=== PATIENT | female | born 1945 | race Caucasian/White ===

== ENCOUNTER 2017-10-09 01:26 | Inpatient (IN) | payer MEDICARE, MEDICAID ==
[2017-10-09 01:26] VITALS: BMI 22.8
[2017-10-09] MEDS ORDERED: Sodium Chloride 0.9% 1,000 ML IV SCH ×3 (02:00→07:15)
--- NOTE | 2017-10-09 02:01 | ED PDOC ---
Arrival/HPI - General Chief Complaint: Abdominal Pain Time Seen by Provider: 10/09/17 01:32 Historian: Patient, Family - History of Present Illness Narrative History of Present Illness (Text): 10/09/17 02:00 Jose Smith is a 72 year old female, whose past medical history includes CAD s/p stents, hypertension, hyperlipidemia, and diabetes, who presents to the Emergency department complaining of upper abdominal pain. Relative states patient has been experiencing upper abdominal pin since eating breakfast yesterday morning, and developed chest pain, nausea, and vomiting at 20:30. Relative also noted patient's blood pressure was elevated at home. Patient denies any fever, chills, shortness of breath, nausea, vomiting, diarrhea, urinary symptoms, back pain, neck pain, headache, dizziness, or any other complaints. PMD: Dr. Angela Chun Time/Duration: Other (yesterday evening) Symptom Onset: Gradual Symptom Course: Unchanged Activities at Onset: Light Context: Home Past Medical History - Provider Review Nursing Documentation Reviewed: Yes - Infectious Disease Hx of Infectious Diseases: None - Cardiac Hx Congestive Heart Failure: Yes Hx Hypertension: Yes - Pulmonary Hx Respiratory Disorders: No - Neurological Hx Neurological Disorder: No - HEENT Hx HEENT Disorder: No - Renal Hx Renal Disorder: No - Endocrine/Metabolic Hx Diabetes Mellitus Type 2: Yes - Hematological/Oncological Hx Blood Disorders: No - Integumentary Hx Dermatological Disorder: No - Musculoskeletal/Rheumatological Hx Falls: No - Gastrointestinal Hx Gastrointestinal Disorders: No - Genitourinary/Gynecological Hx Genitourinary Disorders: No - Psychiatric Hx Psychophysiologic Disorder: No Hx Substance Use: No - Surgical History Hx Cardiac Catheterization: Yes (x1 stent) - Anesthesia Hx Anesthesia: Yes Hx Anesthesia Reactions: No Hx Malignant Hyperthermia: No Family/Social History - Physician Review Nursing Documentation Reviewed: Yes Family/Social History: Unknown Family HX Smoking Status: Never Smoked Hx Alcohol Use: No Hx Substance Use: No Allergies/Home Meds Allergies/Adverse Reactions: Allergies Penicillins Allergy (Verified 02/15/16 20:12) RASH Home Medications: Home Meds Medication Instructions Recorded Confirmed Allopurinol [Zyloprim] 100 mg PO BID 02/16/16 10/09/17 Aspirin 81 mg PO DAILY 02/16/16 10/09/17 Atorvastatin [Lipitor] 80 mg PO DAILY 02/16/16 10/09/17 Fenofibrate [Fenofibrate] 134 mg PO DAILY 02/16/16 10/09/17 Levothyroxine 25 mcg PO DAILY 02/16/16 10/09/17 Linagliptin/Metformin HCl 2.5 mg PO BID 02/16/16 10/09/17 [Jentadueto 2.5 mg-1000 mg Tab] Metoprolol Succinate [Toprol Xl] 200 mg PO HS 02/16/16 10/09/17 Valsartan/Hydrochlorothiazide 320 mg PO DAILY 02/16/16 10/09/17 [Valsartan-Hctz 320-25 mg Tab] Vitamin D2 1.25 mg PO QWK 02/16/16 10/09/17 Alendronate Sodium [Binosto] 70 mg PO QWK 10/09/17 10/09/17 Levocetirizine Dihydrochloride 5 mg PO DAILY 10/09/17 10/09/17 [Xyzal] Sertraline HCl [Zoloft] 100 mg PO DAILY 10/09/17 10/09/17 Review of Systems - Physician Review All systems were reviewed & negative as marked: Yes - Review of Systems Constitutional: Normal. absent: Fevers Eyes: Normal ENT: Normal Respiratory: Normal. absent: SOB, Cough Cardiovascular: Chest Pain Gastrointestinal: Abdominal Pain, Nausea, Vomiting. absent: Diarrhea Genitourinary Female: Normal Musculoskeletal: Normal. absent: Back Pain, Neck Pain Skin: Normal. absent: Rash Neurological: Normal. absent: Headache, Dizziness Endocrine: Normal Hemo/Lymphatic: Normal Psychiatric: Normal Physical Exam Vital Signs Reviewed: Yes Vital Signs Temp Pulse Resp BP Pulse Ox 10/09/17 05:49 61 18 148/76 96 10/09/17 03:35 58 L 16 134/70 96 10/09/17 02:20 62 16 155/82 H 96 10/09/17 01:34 98.4 F 70 18 195/92 H 94 L Temperature: Afebrile Blood Pressure: Hypertensive Pulse: Regular Respiratory Rate: Normal Appearance: Positive for: Well-Appearing, Non-Toxic, Comfortable Pain Distress: None Mental Status: Positive for: Alert and Oriented X 3 - Systems Exam Head: Present: Atraumatic, Normocephalic Pupils: Present: PERRL Extroacular Muscles: Present: EOMI Conjunctiva: Present: Normal Mouth: Present: Moist Mucous Membranes Neck: Present: Normal Range of Motion Respiratory/Chest: Present: Clear to Auscultation, Good Air Exchange. No: Respiratory Distress, Accessory Muscle Use Cardiovascular: Present: Regular Rate and Rhythm, Normal S1, S2. No: Murmurs Abdomen: Present: Tenderness (Upper abdominal tenderness), Normal Bowel Sounds. No: Distention, Peritoneal Signs Back: Present: Normal Inspection Upper Extremity: Present: Normal Inspection. No: Cyanosis, Edema Lower Extremity: Present: Normal Inspection. No: Edema Neurological: Present: GCS=15, CN II-XII Intact, Speech Normal Skin: Present: Warm, Dry, Normal Color. No: Rashes Psychiatric: Present: Alert, Oriented x 3, Normal Insight, Normal Concentration Medical Decision Making ED Course and Treatment: 10/09/17 02:00 Impression: 72 year old female complaining of upper abdominal/chest pain, nausea, and vomiting. Plan: -- EKG -- CT Head -- Chest X-ray -- US Abdomen -- CT Abdomen and Pelvis -- Labs, cardiac enzymes -- IV fluids -- Zofran -- Morphine -- Pepcid -- Reassess and disposition Prior Visits: Notes and results from previous visits were reviewed. Progress Notes: Reviewed EKG, NSR at 69 bpm. 1st degree AV block. No acute changes. 10/09/17 04:07 Reviewed radiology, CT Abdomen and Pelvis shows: Limitations: Lack of intravenous contrast. Motion artifact - mild. Lower thorax: Minimal atelectasis/scarring. 0.5 cm LEFT lower lobe nodule. ABDOMEN: Liver: Fatty infiltration. Gallbladder and bile ducts: Gallstones. Mild prominence of common bile duct. Pancreas: Mild prominence of proximal pancreatic duct. Minimal stranding about head of pancreas. Spleen: No splenomegaly. Adrenals: No mass. Kidneys and ureters: No renal calculi. No hydronephrosis. Stomach and bowel: Segmental areas of probable underdistention of colon. No definite mural thickening. No obstruction. Appendix: Normal caliber. No inflammation. PELVIS: Bladder: Unremarkable. No stones. Reproductive: IUD. ABDOMEN and PELVIS: Intraperitoneal space: No significant fluid collection. No free air. Bones/joints: Degenerative changes of spine. No acute fracture. Soft tissues: Tiny umbilical hernia containing fat. Vasculature: Moderate atherosclerotic disease. No aneurysm. Lymph nodes: No pathologically enlarged lymph nodes. IMPRESSION: 1. Acute pancreatitis. 2. Mild prominence of common bile duct/proximal pancreatic duct. Consider MRCP. 3. Pulmonary nodules. For low-risk patients, no follow-up is necessary. For high -risk patients (smoking history or other known risk factors) an optional CT at 12 months could be performed. 4. Incidental/non-acute findings are described above. US Abdomen shows: Liver: Enlarged, 19.3 cm. Fatty infiltration. No mass. No intrahepatic ductal dilatation. Gallbladder: Gallstones. Sludge. No wall thickening. No pericholecystic fluid. No sonographic Chen's sign. Common bile duct: Up to 0.77 cm in diameter. No stones. Pancreas: Unremarkable as visualized. Kidneys: Normal echogenicity. No hydronephrosis. Spleen: No splenomegaly. Aorta: Unremarkable. No aneurysm. Inferior vena cava: Unremarkable. Free fluid: No significant free fluid. IMPRESSION: 1. Cholelithiasis. 2. Borderline biliary ductal dilatation. Consider MRCP. 3. Incidental/non-acute findings are described above. Blood cultures, Azactam, and Flagyl ordered. 10/09/17 04:[address] Cutler, who is aware and agrees with plan. Accepts pt in to his service. Pt will be admitted to Telemetry for gallstone pancreatitis and chest pain. Requests Dr. He and Dr. Worrell on consult. resident care director programmer numerical control notified. - Lab Interpretations Lab Results: 10/09/17 01:53 10/09/17 02:37 Lab Results 10/09/17 02:37: Sodium 141, Potassium 4.7, Chloride 107, Carbon Dioxide 23, Anion Gap 16, BUN 40 H, Creatinine 1.6 H, Est GFR ( Amer) 38, Est GFR ( Non-Af Amer) 32, Random Glucose 109, Calcium 9.4, Total Bilirubin 1.2, AST 111 H , ALT 104 H, Alkaline Phosphatase 78, Lactate Dehydrogenase 659, Total Creatine Kinase 86, Troponin I < 0.01 D, Total Protein 8.4 H, Albumin 4.5, Globulin 3.9 , Albumin/Globulin Ratio 1.2, Lipase 20864 H 10/09/17 02:37: PT 11.4, INR 1.04, APTT 27.5 10/09/17 01:53: WBC 13.2 H D, RBC 3.72, Hgb 11.2 L, Hct 34.5 L, MCV 92.7, MCH 30.1, MCHC 32.5, RDW 13.9, Plt Count 306, MPV 10.8 I have reviewed the lab results: Yes - RAD Interpretation Radiology Orders: 10/09/17 01:57 CHEST PORTABLE [RAD] Stat 10/09/17 02:03 ABDOMEN COMPLETE [US] Stat 10/09/17 02:04 ABD & PELVIS W/O PO OR IV CONT [CT] Stat Lead Assistant Manager: ED Physician, Radiologist - EKG Interpretation Interpreted by ED Physician: Yes Type: 12 lead EKG - Medication Orders Current Medication Orders: Acetaminophen (Tylenol 325mg Tab) 650 mg PO Q4 PRN PRN Reason: Fever >100.4 F Alendronate Sodium (Fosamax) 70 mg PO Q7D FIDELINA Allopurinol (Zyloprim) 100 mg PO BID FIDELINA Aspirin (Aspirin Chewable) 81 mg PO DAILY FIDELINA Atorvastatin Calcium (Lipitor) 80 mg PO DAILY FIDELINA Docusate Sodium (Colace) 100 mg PO BID FIDELINA Fenofibrate (Tricor) 145 mg PO DAILY FIDELINA Hydrochlorothiazide (Hydrodiuril) 25 mg PO DAILY FIDELINA Lactated Ringer's (Lactated Ringer's) 1,000 mls @ 999 mls/hr IV .Q1H1M FIDELINA Last Admin: 10/09/17 06:28 Dose: 999 mls/hr eMAR Start Stop Document 10/09/17 06:28 SGG (Rec: 10/09/17 06:28 SGG [id number]) Intravenous Solution Start Date 10/09/17 Start Time 06:28 Insulin Human Lispro (Humalog Med) 0 units SC ACHS FIDELINA PRN Reason: Protocol Levothyroxine Sodium (Synthroid) 25 mcg PO ACB FIDELINA Metoprolol Succinate (Toprol Xl) 200 mg PO HS FIDELINA Morphine Sulfate (Morphine) 2 mg IVP Q4H PRN PRN Reason: Pain, severe (8-10) Ondansetron HCl (Zofran Inj) 4 mg IVP Q4H PRN PRN Reason: Nausea/Vomiting Pantoprazole Sodium (Protonix Inj) 40 mg IVP Q12 FIDELINA Sertraline HCl (Zoloft) 100 mg PO DAILY FIDELINA Valsartan (Diovan) 320 mg PO DAILY FIDELINA Discontinued Medications Famotidine (Pepcid) 20 mg IVP STAT STA Stop: 10/09/17 02:01 Last Admin: 10/09/17 02:11 Dose: 20 mg IVP Administration Document 10/09/17 02:11 AD (Rec: 10/09/17 02:11 AD [id number]) Charges for Administration # of IVP Administrations 1 Sodium Chloride (Sodium Chloride 0.9%) 1,000 mls @ 100 mls/hr IV .Q10H FIDELINA Last Admin: 10/09/17 02:10 Dose: 100 mls/hr eMAR Start Stop Document 10/09/17 02:10 AD (Rec: 10/09/17 02:11 AD [id number]) Intravenous Solution Start Date 10/09/17 Start Time 02:10 Aztreonam (Azactam 1 Gm) 100 mls @ 100 mls/hr IVPB STAT STA PRN Reason: Protocol Stop: 10/09/17 05:47 Last Admin: 10/09/17 06:20 Dose: 100 mls/hr eMAR Start Stop Document 10/09/17 06:20 SGG (Rec: 10/09/17 06:20 SGG [id number]) Intravenous Solution Start Date 10/09/17 Start Time 06:20 Metronidazole (Flagyl) 500 mg in 100 mls @ 100 mls/hr IVPB STAT STA PRN Reason: Protocol Stop: 10/09/17 05:49 Last Admin: 10/09/17 05:20 Dose: 100 mls/hr eMAR Start Stop Document 10/09/17 05:20 AD (Rec: 10/09/17 05:40 AD [id number]) Intravenous Solution Start Date 10/09/17 Start Time 05:20 Morphine Sulfate (Morphine) 2 mg IVP STAT STA Stop: 10/09/17 02:08 Last Admin: 10/09/17 02:19 Dose: 2 mg MAR Pain Assessment Document 10/09/17 02:19 AD (Rec: 10/09/17 02:20 AD [id number]) Pain Reassessment Is this a pain reassessment? No Presence of Pain Presence of Pain Yes Pain Scale Used Pain Scale Used Numeric Description Intensity of Pain at present 7 Pain Behavior Facial Grimacing IVP Administration Document 10/09/17 02:19 AD (Rec: 10/09/17 02:20 AD [id number]) Charges for Administration # of IVP Administrations 1 Re-Assess: SOLO Pain Assessment Document 10/09/17 03:19 AD (Rec: 10/09/17 04:12 AD [id number]) Pain Reassessment Is this a pain reassessment? Yes Sleep Is patient sleeping during reassessment? No Presence of Pain Presence of Pain Yes Pain Scale Used Pain Scale Used Numeric Description Intensity of Pain at present 2 Ondansetron HCl (Zofran Inj) 4 mg IVP ONCE ONE Stop: 10/09/17 02:01 Last Admin: 10/09/17 02:11 Dose: 4 mg IVP Administration Document 10/09/17 02:11 AD (Rec: 10/09/17 02:11 AD [id number]) Charges for Administration # of IVP Administrations 1 - Scribe Statement The provider has reviewed the documentation as recorded by the Himanshuibcarol ann Hughes Provider Scribe Attestation: All medical record entries made by the Scribe were at my direction and personally dictated by me. I have reviewed the chart and agree that the record accurately reflects my personal performance of the history, physical exam, medical decision making, and the department course for this patient. I have also personally directed, reviewed, and agree with the discharge instructions and disposition. Disposition/Present on Arrival - Present on Arrival Any Indicators Present on Arrival: No History of DVT/PE: No History of Uncontrolled Diabetes: No Urinary Catheter: Yes History of Decub. Ulcer: No History Surgical Site Infection Following: None - Disposition Have Diagnosis and Disposition been Completed?: Yes Diagnosis: Gallstone pancreatitis, Chest pain Disposition: HOSPITALIZED Disposition Time: 05:00 Condition: STABLE
[2017-10-09] MEDS ORDERED: Morphine 2 mg/ml ISec IVP STA (02:07)
[2017-10-09 02:18] LABS: HEMATOCRIT 34.5 % (36.0-48.0); MEAN CELL VOLUME 92.7 fl (80.0-105.0); MEAN CORPUSCULAR HEMOGLOBIN 30.1 pg (25.0-35.0); MEAN CORPUSCULAR HGB CONC 32.5 g/dl (31.0-37.0); MEAN PLATELET VOLUME 10.8 fl (7.0-11.0); RED CELL DISTRIBUTION WIDTH 13.9 % (11.5-14.5); WHITE BLOOD COUNT 13.2 10^3/ul (4.5-11.0)
[2017-10-09 03:00] LABS: INR 1.04 (0.93-1.08); PARTIAL THROMBOPLASTIN TIME 27.5 Seconds (25.1-36.5)
--- NOTE | 2017-10-09 03:40 | US ---
EXAM: US Abdomen Complete CLINICAL HISTORY: 72 years old, female; Pain; Abdominal pain; Generalized; Additional info: Pain/vomiting TECHNIQUE: Real-time ultrasound of the abdomen (complete) with image documentation. COMPARISON: No relevant prior studies available. FINDINGS: Liver: Enlarged, 19.3 cm. Fatty infiltration. No mass. No intrahepatic ductal dilatation. Gallbladder: Gallstones. Sludge. No wall thickening. No pericholecystic fluid. No sonographic Chen's sign. Common bile duct: Up to 0.77 cm in diameter. No stones. Pancreas: Unremarkable as visualized. Kidneys: Normal echogenicity. No hydronephrosis. Spleen: No splenomegaly. Aorta: Unremarkable. No aneurysm. Inferior vena cava: Unremarkable. Free fluid: No significant free fluid. IMPRESSION: 1. Cholelithiasis. 2. Borderline biliary ductal dilatation. Consider MRCP. 3. Incidental/non-acute findings are described above.
--- NOTE | 2017-10-09 03:58 | CT ---
EXAM: CT Abdomen and Pelvis Without Intravenous Contrast CLINICAL HISTORY: 72 years old, female; Pain; Abdominal pain; Generalized TECHNIQUE: Axial computed tomography images of the abdomen and pelvis without intravenous contrast. All CT scans at this facility use one or more dose reduction techniques, viz.: automated exposure control; ma/kV adjustment per patient size (including targeted exams where dose is matched to indication; i.e. head); or iterative reconstruction technique. Coronal and sagittal reformatted images were created and reviewed. COMPARISON: US - ABDOMEN COMPLETE 2017-10-09 02:47 FINDINGS: Limitations: Lack of intravenous contrast. Motion artifact - mild. Lower thorax: Minimal atelectasis/scarring. 0.5 cm LEFT lower lobe nodule. ABDOMEN: Liver: Fatty infiltration. Gallbladder and bile ducts: Gallstones. Mild prominence of common bile duct. Pancreas: Mild prominence of proximal pancreatic duct. Minimal stranding about head of pancreas. Spleen: No splenomegaly. Adrenals: No mass. Kidneys and ureters: No renal calculi. No hydronephrosis. Stomach and bowel: Segmental areas of probable underdistention of colon. No definite mural thickening. No obstruction. Appendix: Normal caliber. No inflammation. PELVIS: Bladder: Unremarkable. No stones. Reproductive: IUD. ABDOMEN and PELVIS: Intraperitoneal space: No significant fluid collection. No free air. Bones/joints: Degenerative changes of spine. No acute fracture. Soft tissues: Tiny umbilical hernia containing fat. Vasculature: Moderate atherosclerotic disease. No aneurysm. Lymph nodes: No pathologically enlarged lymph nodes. IMPRESSION: 1. Acute pancreatitis. 2. Mild prominence of common bile duct/proximal pancreatic duct. Consider MRCP. 3. Pulmonary nodules. For low-risk patients, no follow-up is necessary. For high-risk patients (smoking history or other known risk factors) an optional CT at 12 months could be performed. 4. Incidental/non-acute findings are described above.
[2017-10-09 04:03] LABS: ALB/GLOB RATIO 1.2 (1.1-1.8); ALKALINE PHOSPHATASE 78 U/L (38-126); ALT/SGPT 104 U/L (7-56); AST/SGOT 111 U/L (14-36); BILIRUBIN,TOTAL 1.2 mg/dL (0.2-1.3); BLOOD UREA NITROGEN 40 mg/dL (7-21); CALCIUM 9.4 mg/dL (8.4-10.5); CARBON DIOXIDE 23 mmol/L (21-33); CHLORIDE 107 mmol/L (98-107); GFR AFRICAN-AMERICAN 38; GLUCOSE,RANDOM 109 mg/dL (70-110); LIPASE 51411 U/L (23-300); TOTAL PROTEIN 8.4 g/dL (5.8-8.3)
[2017-10-09 04:04] LABS: TROPONIN I < 0.01 ng/mL
[2017-10-09 04:05] LABS: POTASSIUM 4.7 mmol/L (3.6-5.0); SODIUM 141 mmol/L (132-148)
[2017-10-09] MEDS ORDERED: Aztreonam 1 Gm in NS 100mL 100 ML IVPB STA (04:48)
[2017-10-09] MEDS ORDERED: metroNIDAZOLE IV 500 mg/100 ml 500 MG/100 ML BAG IVPB STA (04:50)
[2017-10-09] MEDS ORDERED: Morphine 2 mg/ml ISec IVP PRN (05:58)
[2017-10-09] MEDS ORDERED: Lactated Ringer's 1,000 ML IV SCH (06:00)
--- NOTE | 2017-10-09 06:01 | CP.PCM.HP ---
History of Present Illness - History of Present Illness History of Present Illness: Ms. Smith is a 72 y/o [place] F with CAD s/p stent, HTN, HLD, and DM2 who presents with severe abdominal pain and n/v x1 day. Per family, the patient had breakfast (falafel) for breakfast yesterday and had severe epigastric pain since then that waxes and wanes in severity associated with episodes nausea/ vomiting. the patient has never had an episode similar to this. of note, the patient does have diarrhea at baseline however recently she has been constipated , which is not her norm. when assessed, the patient was comfortable and stated that her pain was controlled. the patient denied any radiation of the pain to the back, any fevers/chills, dysuria or urinary frequency, blood in the vomit or stools, chest pain, weakness, LE swelling or any weight changes. 12-pt ROS was reviewed and is otherwise unremarkable. In ED, pt received Azactam and Flagyl as well as Morphine for pain. Zofran and Pepcid were given. PMD: Dr. Chun Cardiology-Dr. Pinedo ([place]) PMH: HTN, HLD, DM2, CAD s/p 1 stent (5 years ago) in [place] PSH: None Medications: as per MAR SHx: Denies ETOH, Tobacco, Drug Use. Lives with son. independent with ADLs FHx is not pertinent Allergies: PCN-Rash Present on Admission - Present on Admission Any Indicators Present on Admission: No History of DVT/PE: No History of Uncontrolled Diabetes: No Urinary Catheter: No Decubitus Ulcer Present: No Review of Systems - Review of Systems All systems: reviewed and no additional remarkable complaints except (as per HPI ) Past Patient History - Infectious Disease Hx of Infectious Diseases: None - Past Medical History & Family History Past Medical History?: Yes - Past Social History Smoking Status: Never Smoked Alcohol: None Drugs: Denies Home Situation {Lives}: With Family - CARDIAC Hx Angina: Yes (s/p 1 stent 2011) Hx Hypercholesterolemia: Yes Hx Hypertension: Yes - PULMONARY Hx Respiratory Disorders: No - NEUROLOGICAL Hx Neurological Disorder: No - HEENT Hx HEENT Problems: No - RENAL Hx Chronic Kidney Disease: No - ENDOCRINE/METABOLIC Hx Diabetes Mellitus Type 2: Yes - HEMATOLOGICAL/ONCOLOGICAL Hx Blood Disorders: No - INTEGUMENTARY Hx Dermatological Problems: No - MUSCULOSKELETAL/RHEUMATOLOGICAL Hx Falls: No - GASTROINTESTINAL Hx Gastrointestinal Disorders: No - GENITOURINARY/GYNECOLOGICAL Hx Genitourinary Disorders: No - PSYCHIATRIC Hx Psychophysiologic Disorder: No Hx Substance Use: No - SURGICAL HISTORY Hx Cardiac Catheterization: Yes (x2 (1 stent placed)) - ANESTHESIA Hx Anesthesia: Yes Hx Anesthesia Reactions: No Hx Malignant Hyperthermia: No Meds Allergies/Adverse Reactions: Allergies Allergy/AdvReac Type Severity Reaction Status Date / Time Penicillins Allergy RASH Verified 02/15/16 20:12 Physical Exam - Constitutional Appears: Well, Non-toxic, No Acute Distress - Head Exam Head Exam: ATRAUMATIC, NORMAL INSPECTION, NORMOCEPHALIC - Eye Exam Eye Exam: EOMI, Normal appearance, PERRL Pupil Exam: NORMAL ACCOMODATION - ENT Exam ENT Exam: Mucous Membranes Moist, Normal Exam - Neck Exam Neck exam: Positive for: Normal Inspection - Respiratory Exam Respiratory Exam: Clear to Auscultation Bilateral, NORMAL BREATHING PATTERN. absent: Rales, Rhonchi, Wheezes - Cardiovascular Exam Cardiovascular Exam: RRR, +S1, +S2. absent: Gallop, JVD, Rubs, Systolic Murmur - GI/Abdominal Exam GI & Abdominal Exam: Distended, Hyperactive Bowel Sounds, Soft, Tenderness ( epigastric ). absent: Firm, Guarding, Rigid - Extremities Exam Extremities exam: Positive for: normal inspection. Negative for: pedal edema - Back Exam Back exam: NORMAL INSPECTION - Neurological Exam Neurological exam: Alert, Oriented x3 - Psychiatric Exam Psychiatric exam: Normal Affect, Normal Mood - Skin Skin Exam: Dry, Normal Color, Warm Results - Vital Signs Recent Vital Signs: Last Vital Signs Temp 98.4 F 10/09/17 01:34 Pulse 61 10/09/17 05:49 Resp 18 10/09/17 05:49 BP 148/76 10/09/17 05:49 Pulse Ox 96 10/09/17 05:49 - Labs Result Diagrams: 10/09/17 01:53 10/09/17 02:37 Assessment & Plan - Assessment and Plan (Free Text) Assessment: 72 y/o [place] F with CAD s/p stent, HTN, HLD, and DM2 who presents with abdominal pain and n/v x1 day likely 2/2 acute pancreatitis likely due to cholelithiasis vs hypertriglyceridemia; unclear if the pancreatitis is chronic ( as pt has hx of diarrhea) vs acute. not likely to be cardiac etiology. BISAP score 2. [place]'s criteria 2pts @ admission. Pt remains afebrile with leukocytosis, transaminitis and elevated lipase. Creatinine is elevated likely 2 /2 LIANNA due to dehydration vs CKD. DM2, HTN and HLD will be managed. Plan: 1. Abdominal pain 2/2 acute pancreatitis 2/2 cholelithiasis vs HLD - CT abdomen showed acute pancreatitis; no calcifications noted. Mild prominence of common bile duct/proximal pancreatic duct. Pulmonary nodules will require outpatient followup. IUD in place. - EKG showed NSR at 69 bpm. 1st degree AV block. No acute changes. - Troponin negative x1 - Abdomen US showed Cholelithiasis with no signs of cholecystitis. Borderline biliary ductal dilatation (0.77cm diameter). - pt does not meet SIRS criteria - lipid panel ordered - UA and blood cultures ordered - NPO - continue 1L LR bolus then @ 150 cc/hr - Morphine PRN pain, colace - Zofran PRN n/v - Tylenol PRN fever - Surgery consulted, recs appreciated - GI consulted, recs appreciated 2. LIANNA vs CKD - continue hydration and monitor I/O and Cr - avoid nephrotoxic drugs 3. Hx CAD - continue ASA - EKG showed no acute changes 4. Hx DM2 - ISS - Accucheck ACHS - A1C ordered 5. Hx HTN - cont HCTZ, Diovan and Metoprolol 6. HLD - cont Lipitor, Fenofibrate - lipid panel ordered PTX/SCDs NPO LR Patient was seen, examined and discussed with attending, Dr. Omayra Sanchez PGY1 - Date & Time Date: 10/09/17 Time: 06:39
[2017-10-09] MEDS: Lactated Ringer's 1,000 ML IV SCH ×6 (06:28→13:51)
--- NOTE | 2017-10-09 07:11 | CP.PCM.CON ---
<Zoey Martinez - Last Filed: 10/09/17 07:06> History of Present Illness - History of Present Illness History of Present Illness: Surgery HPI: Pt is a 70 y/o F with CAD, HTN, HLD, and DM who presents from home with increasing Epigatric pain, N/V. Pt had similar symptoms in the past for a long time. Pain is localized and doesn't radiate. Pt had multiple episodes of vomiting , non bloody non billious. , denies Diarrhea, hematochezia, hematemesis, melena, sick contact. Denies burning or pain with urination. Patient denied pleuritic nature of chest pain. She denies CP with exertion. Past Medical History: HTN, HLD, DM, CAD s/p stents (5 years ago) in [place]. Pt denies taking drinking of smoking. Past Surgical History: CAD Stent Family History: Father-[place] 56 y/o Social History: Denies ETOH, Tobacco, Drug Use. Lives with son can perform ADLs , Pt in [place] years, goes back and forth to [place]. Patient was last in [place] July 2015 Medications: Reviewed as per Med Rec Allergies: PCN-Rash Review of Systems - Review of Systems Review of Systems: See HPI Past Patient History - Infectious Disease Hx of Infectious Diseases: None - Past Medical History & Family History Past Medical History?: Yes - Past Social History Smoking Status: Never Smoked Alcohol: None Drugs: Denies Home Situation {Lives}: With Family - CARDIAC Hx Angina: Yes (s/p 1 stent 2011) Hx Hypercholesterolemia: Yes Hx Hypertension: Yes - PULMONARY Hx Respiratory Disorders: No - NEUROLOGICAL Hx Neurological Disorder: No - HEENT Hx HEENT Problems: No - RENAL Hx Chronic Kidney Disease: No - ENDOCRINE/METABOLIC Hx Diabetes Mellitus Type 2: Yes - HEMATOLOGICAL/ONCOLOGICAL Hx Blood Disorders: No - INTEGUMENTARY Hx Dermatological Problems: No - MUSCULOSKELETAL/RHEUMATOLOGICAL Hx Falls: No - GASTROINTESTINAL Hx Gastrointestinal Disorders: No - GENITOURINARY/GYNECOLOGICAL Hx Genitourinary Disorders: No - PSYCHIATRIC Hx Psychophysiologic Disorder: No Hx Substance Use: No - SURGICAL HISTORY Hx Cardiac Catheterization: Yes (x2 (1 stent placed)) - ANESTHESIA Hx Anesthesia: Yes Hx Anesthesia Reactions: No Hx Malignant Hyperthermia: No Meds Allergies/Adverse Reactions: Allergies Allergy/AdvReac Type Severity Reaction Status Date / Time Penicillins Allergy RASH Verified 02/15/16 20:12 - Medications Medications: Current Medications Acetaminophen (Tylenol 325mg Tab) 650 mg PO Q4 PRN PRN Reason: Fever >100.4 F Alendronate Sodium (Fosamax) 70 mg PO Q7D [facility] Allopurinol (Zyloprim) 100 mg PO BID [facility] Aspirin (Aspirin Chewable) 81 mg PO DAILY [facility] Docusate Sodium (Colace) 100 mg PO BID [facility] Heparin Sodium (Porcine) (Heparin) 5,000 units SC Q8 [facility] PRN Reason: Protocol Hydromorphone HCl (Dilaudid) 0.5 mg IVP Q4H PRN PRN Reason: Pain, moderate (4-7) Lactated Ringer's (Lactated Ringer's) 1,000 mls @ 999 mls/hr IV .Q1H1M [facility] Last Admin: 10/09/17 06:28 Dose: 999 mls/hr Aztreonam (Azactam 1 Gm) 100 mls @ 100 mls/hr IVPB Q8 [facility] PRN Reason: Protocol Stop: 10/16/17 06:59 Metronidazole (Flagyl) 500 mg in 100 mls @ 100 mls/hr IVPB Q8 [facility] PRN Reason: Protocol Sodium Chloride (Sodium Chloride 0.9%) 1,000 mls @ 125 mls/hr IV .Q8H [facility] Stop: 10/10/17 23:14 Insulin Human Lispro (Humalog Med) 0 units SC ACHS [facility] PRN Reason: Protocol Metoprolol Tartrate (Lopressor) 25 mg PO BID [facility] Ondansetron HCl (Zofran Inj) 4 mg IVP Q4H PRN PRN Reason: Nausea/Vomiting Pantoprazole Sodium (Protonix Inj) 40 mg IVP Q12 [facility] Sertraline HCl (Zoloft) 100 mg PO DAILY [facility] Physical Exam - Constitutional Appears: No Acute Distress - Head Exam Head Exam: ATRAUMATIC, NORMAL INSPECTION, NORMOCEPHALIC - Eye Exam Eye Exam: EOMI, Normal appearance, PERRL Pupil Exam: NORMAL ACCOMODATION, PERRL - ENT Exam ENT Exam: Mucous Membranes Moist, Normal Exam - Neck Exam Neck exam: Positive for: Normal Inspection - Respiratory Exam Respiratory Exam: Clear to Auscultation Bilateral, NORMAL BREATHING PATTERN - Cardiovascular Exam Cardiovascular Exam: REGULAR RHYTHM - GI/Abdominal Exam GI & Abdominal Exam: Normal Bowel Sounds, Soft, Tenderness. absent: Distended, Firm, Guarding, Hernia Additional comments: Epigastric TTP - Exam Exam: NORMAL INSPECTION - Extremities Exam Extremities exam: Positive for: normal inspection - Back Exam Back exam: NORMAL INSPECTION - Neurological Exam Neurological exam: Alert, CN II-XII Intact, Normal Gait, Oriented x3, Reflexes Normal - Psychiatric Exam Psychiatric exam: Normal Affect, Normal Mood - Skin Skin Exam: Dry, Intact, Normal Color, Warm Results - Vital Signs Recent Vital Signs: Last Vital Signs Temp 98.2 F 10/09/17 06:15 Pulse 64 10/09/17 06:15 Resp 18 10/09/17 06:15 BP 162/72 H 10/09/17 06:15 Pulse Ox 96 10/09/17 06:15 - Labs Result Diagrams: 10/09/17 01:53 10/09/17 02:37 Assessment & Plan - Assessment and Plan (Free Text) Assessment: Gallstone pancreatitis VSS US: gallstones CBD 8mm CT: pancreatitis Lipase 50k AST 100, ALT 100 -NPO -IVF -Recommend lap [facility] this admission -Need cardio clearance -Medical management Will DW Dr. He <Dave He - Last Filed: 10/09/17 16:25> Meds - Medications Medications: Current Medications Acetaminophen (Tylenol 325mg Tab) 650 mg PO Q4 PRN PRN Reason: Fever >100.4 F Alendronate Sodium (Fosamax) 70 mg PO Q7D [facility] Allopurinol (Zyloprim) 100 mg PO BID [facility] Last Admin: 10/09/17 09:12 Dose: 100 mg Aspirin (Aspirin Chewable) 81 mg PO DAILY [facility] Last Admin: 10/09/17 09:12 Dose: 81 mg Clonidine HCl (Catapres Tts1 0.1 Mg/24 Hr) 1 patch TD Q7D@1000 [facility] Last Admin: 10/09/17 11:26 Dose: 1 patch Docusate Sodium (Colace) 100 mg PO BID [facility] Last Admin: 10/09/17 09:12 Dose: 100 mg Heparin Sodium (Porcine) (Heparin) 5,000 units SC Q8 [facility] PRN Reason: Protocol Last Admin: 10/09/17 13:43 Dose: 5,000 units Hydralazine HCl (Apresoline) 10 mg IVP Q6 PRN PRN Reason: FORSBP>=170&/ORDBP>=100MMHG Hydromorphone HCl (Dilaudid) 0.5 mg IVP Q4H PRN PRN Reason: Pain, moderate (4-7) Metronidazole (Flagyl) 500 mg in 100 mls @ 100 mls/hr IVPB Q8 [facility] PRN Reason: Protocol Last Admin: 10/09/17 13:44 Dose: 100 mls/hr Aztreonam 500 mg/ Sodium (Chloride) 100 mls @ 100 mls/hr IVPB Q8 [facility] Stop: 10/09/17 22:59 Last Admin: 10/09/17 14:55 Dose: 100 mls/hr Lactated Ringer's (Lactated Ringer's) 1,000 mls @ 150 mls/hr IV .Q6H40M [facility] Last Admin: 10/09/17 13:51 Dose: 150 mls/hr Insulin Human Lispro (Humalog Med) 0 units SC ACHS [facility] PRN Reason: Protocol Last Admin: 10/09/17 11:33 Dose: Not Given Metoprolol Tartrate (Lopressor) 25 mg PO BID [facility] Last Admin: 10/09/17 09:12 Dose: 25 mg Ondansetron HCl (Zofran Inj) 4 mg IVP Q4H PRN PRN Reason: Nausea/Vomiting Pantoprazole Sodium (Protonix Inj) 40 mg IVP Q12 [facility] Last Admin: 10/09/17 10:05 Dose: 40 mg Sertraline HCl (Zoloft) 100 mg PO DAILY [facility] Last Admin: 10/09/17 09:13 Dose: 100 mg Results - Vital Signs Recent Vital Signs: Last Vital Signs Temp 98.2 F 10/09/17 06:15 Pulse 58 L 10/09/17 14:00 Resp 20 10/09/17 12:30 BP 164/77 H 10/09/17 12:00 Pulse Ox 95 10/09/17 12:30 - Labs Result Diagrams: 10/09/17 07:00 10/09/17 07:00 Labs: Laboratory Results - last 24 hr 10/09/17 10/09/17 10/09/17 06:30 07:00 07:00 WBC 12.0 H RBC 3.60 Hgb 10.6 L Hct 33.5 L MCV 93.1 MCH 29.4 MCHC 31.6 RDW 13.8 Plt Count 262 MPV 9.9 Sodium Potassium Chloride Carbon Dioxide Anion Gap BUN Creatinine Est GFR ( Amer) Est GFR (Non-Af Amer) Random Glucose Hemoglobin A1c 6.7 H Lactic Acid Uric Acid Calcium Phosphorus Magnesium Total Bilirubin AST ALT Alkaline Phosphatase Total Protein Albumin Globulin Albumin/Globulin Ratio Triglycerides Cholesterol LDL Cholesterol Direct HDL Cholesterol Amylase 1708 H Free T4 Thyroxine (T4) TSH 3rd Generation Hepatitis A IgM Ab Hep Bs Antigen Hep B Core IgM Ab Hepatitis C Antibody 10/09/17 10/09/17 10/09/17 07:00 07:00 07:00 WBC RBC Hgb Hct MCV MCH MCHC RDW Plt Count MPV Sodium 141 Potassium 4.7 Chloride 107 Carbon Dioxide 22 Anion Gap 17 BUN 37 H Creatinine 1.5 H Est GFR ( Amer) 41 Est GFR (Non-Af Amer) 34 Random Glucose 115 H Hemoglobin A1c Lactic Acid Uric Acid 6.5 H Calcium 8.9 Phosphorus 4.3 Magnesium 1.5 L Total Bilirubin 1.0 AST 83 H D ALT 89 H Alkaline Phosphatase 76 Total Protein 7.8 Albumin 4.1 Globulin 3.7 Albumin/Globulin Ratio 1.1 Triglycerides 192 H Cholesterol 174 LDL Cholesterol Direct 113 HDL Cholesterol 37 Amylase Free T4 1.56 Thyroxine (T4) 8.6 TSH 3rd Generation 2.68 Hepatitis A IgM Ab Negative Hep Bs Antigen Negative Hep B Core IgM Ab Negative Hepatitis C Antibody Reactive 10/09/17 10/09/17 07:00 09:00 WBC RBC Hgb Hct MCV MCH MCHC RDW Plt Count MPV Sodium Potassium Chloride Carbon Dioxide Anion Gap BUN Creatinine Est GFR ( Amer) Est GFR (Non-Af Amer) Random Glucose Hemoglobin A1c 6.7 H Lactic Acid 0.5 L Uric Acid Calcium Phosphorus Magnesium Total Bilirubin AST ALT Alkaline Phosphatase Total Protein Albumin Globulin Albumin/Globulin Ratio Triglycerides Cholesterol LDL Cholesterol Direct HDL Cholesterol Amylase Free T4 Thyroxine (T4) TSH 3rd Generation Hepatitis A IgM Ab Hep Bs Antigen Hep B Core IgM Ab Hepatitis C Antibody Assessment & Plan - Assessment and Plan (Free Text) Assessment: Dx: Cholecystitis-cholelithiasis/?CD Stone Pancreatitis Cholangitis HTCAD Will need Lap Cholecystectomy if MRCP neg/Pancreatitis resolves This consult done under my direct supervision Rick He MD FACS
[2017-10-09] MEDS ORDERED: Levothyroxine 25 MCG TAB PO SCH (07:30)
[2017-10-09 07:45] LABS: HEMATOCRIT 33.5 % (36.0-48.0); MEAN CELL VOLUME 93.1 fl (80.0-105.0); MEAN CORPUSCULAR HEMOGLOBIN 29.4 pg (25.0-35.0); MEAN CORPUSCULAR HGB CONC 31.6 g/dl (31.0-37.0); MEAN PLATELET VOLUME 9.9 fl (7.0-11.0); RED CELL DISTRIBUTION WIDTH 13.8 % (11.5-14.5)
[2017-10-09] MEDS: Insulin Lispro (humaLOG) MEDIUM Coverage SC SCH ×4 (07:51→21:46)
[2017-10-09 08:09] LABS: ALB/GLOB RATIO 1.1 (1.1-1.8); CALCIUM 8.9 mg/dL (8.4-10.5); MAGNESIUM 1.5 mg/dL (1.7-2.2); PHOSPHOROUS 4.3 mg/dL (2.5-4.5); POTASSIUM 4.7 mmol/L (3.6-5.0); TOTAL PROTEIN 7.8 g/dL (5.8-8.3)
[2017-10-09 08:10] LABS: URIC ACID 6.5 mg/dL (2.5-6.2)
--- NOTE | 2017-10-09 08:37 | RAD ---
HISTORY: pain COMPARISON: 02/19/2016 FINDINGS: LUNGS: No active pulmonary disease. PLEURA: No significant pleural effusion identified, no pneumothorax apparent. CARDIOVASCULAR: Normal. OSSEOUS STRUCTURES: No significant abnormalities. VISUALIZED UPPER ABDOMEN: Normal. OTHER FINDINGS: None. IMPRESSION: No active disease.
[2017-10-09 08:58] LABS: THYROID STIMULATING HORMONE 2.68 mIU/mL (0.46-4.68)
[2017-10-09] MEDS: Magnesium Sulfate 2 GM in Sodium Chloride 0.9% 100 ML IVPB SCH ×2 (09:13→10:04)
[2017-10-09 09:25] LABS: FREE T4 1.56 ng/dL (0.78-2.19); T4 8.6 ug/dL (5.5-11.0)
[2017-10-09] MEDS ORDERED: [UNRECOGNIZED DRUG - OTHER] PO SCH (10:00)
[2017-10-09] MEDS ORDERED: HYDROCHLOROTHIAZIDE PO SCH (10:00)
[2017-10-09] MEDS ORDERED: VALSARTAN PO SCH (10:00)
[2017-10-09] MEDS: metroNIDAZOLE IV 500 mg/100 ml 500 MG/100 ML BAG IVPB SCH ×2 (13:44→21:45)
[2017-10-09] MEDS ORDERED: Aztreonam 1 Gm in NS 100mL 100 ML IVPB SCH (14:00)
--- NOTE | 2017-10-09 16:15 | CON ---
DATE: 10/09/2017 GASTROENTEROLOGY CONSULTATION REQUESTING PHYSICIAN: Cecil Cutler MD. REASON FOR CONSULTATION: I have been asked to see this 72-year-old Haitian female who comes to the hospital with 1 day history of severe epigastric pain associated with nausea and vomiting. Routine blood work in the hospital showed elevated amylase and lipase. Ultrasound of the abdomen showed gallstones and sludge with a mildly dilated common bile duct measuring 7.[address] scan of the abdomen and pelvis showed some edema around the head of the pancreas with mildly dilated common bile duct and pancreatic duct. The patient currently states that her abdominal pain has resolved. She denies any nausea or vomiting. The patient does not speak any Norwegian. The history is obtained from the patient's daughter who is at the bedside . PAST MEDICAL HISTORY: Notable for coronary artery disease status post coronary artery stent placement, type 2 diabetes mellitus, hypertension, and hyperlipidemia. SOCIAL HISTORY: She denies cigarette smoking or alcohol use. FAMILY HISTORY: Noncontributory. ALLERGIES: SHE IS ALLERGIC TO PENICILLIN. REVIEW OF SYSTEMS: A 14-point review of systems is notable for abdominal pain, nausea, and vomiting. MEDICATIONS AT HOME: Include Xyzal, sertraline, alendronate, Jentadueto 2.5 mg per 1000 mg, Levoxyl, Zyloprim, vitamin D2, fenofibrate, Toprol XL, atorvastatin, baby aspirin, and valsartan and hydrochlorothiazide. PHYSICAL EXAMINATION: GENERAL: Elderly female lying in bed, in no acute distress. VITAL SIGNS: Reveal temperature of 98.2, blood pressure 162/72, heart rate of 64. Her BMI is 32.2. HEENT: Reveal sclerae to be white. Conjunctivae pink. NECK: Supple. CHEST: Reveals lungs to be clear. HEART: Reveals a regular rate and rhythm. ABDOMEN: Soft. There is mild epigastric tenderness to deep palpation. There is some guarding. There is no rebound. EXTREMITIES: Show no edema. LABORATORY DATA: Reveal white blood cell count of 12, hemoglobin 10.6. Chemistries reveal BUN 37, creatinine 1.5, magnesium 1.5, AST 83, ALT 89, alkaline phosphatase of 76. Triglycerides of 192. Serum amylase is 1708, serum lipase is 51,411. IMPRESSION: 1. Acute pancreatitis secondary to gallstones. 2. Diabetes mellitus. 3. Coronary artery disease. RECOMMENDATIONS: 1. The patient is to have an MRCP. She was noted to have mildly dilated common bile duct and proximal pancreatic duct on CAT scan. 2. Continue IV fluids. 3. Continue n.p.o. 4. Follow amylase and lipase. 5. The patient will need cholecystectomy once her pancreatitis cools down. Gary Worrell MD
[2017-10-09 16:42] LABS: URINE BILIRUBIN NEGATIVE (NEGATIVE); URINE BLOOD TRACE-INTACT (NEGATIVE); URINE GLUCOSE (UA) NEGATIVE (NEGATIVE); URINE KETONE NEGATIVE (NEGATIVE); URINE LEUKOCYTE ESTERASE MODERATE Leu/uL (NEGATIVE); URINE PROTEIN 30 mg/dL (<30 mg/dL); URINE UROBILINOGEN 0.2 E.U./dL (<1 E.U./dL)
[2017-10-09 16:45] LABS: URINE APPEARANCE CLEAR (CLEAR); URINE COLOR YELLOW (YELLOW)
[2017-10-09 16:48] LABS: URINE BACTERIA MANY (NEG); URINE WBC 20 - 25 /hpf (0-6)
--- NOTE | 2017-10-09 17:06 | MRI ---
PROCEDURE: Magnetic Resonance Cholangiopancreatography HISTORY: Cholelithiasis COMPARISON: None available. TECHNIQUE: Multiplanar, multisequence MR images of the abdomen were obtained, including heavily T2 weighted MRCP images of the biliary system. Rotating maximum intensity projection images of the biliary system were generated. FINDINGS: MRCP: The common bile duct is of a normal caliber. No evidence of choledocholithiasis. No intrahepatic biliary ductal dilatation. LIVER: Unremarkable. GALLBLADDER: Stones are layered in the gallbladder. SPLEEN: Unremarkable. PANCREAS: Unremarkable. ADRENALS: Unremarkable. KIDNEYS: Unremarkable. AORTA: No aneurysm. ASCITES: None. OTHER FINDINGS: None. IMPRESSION: Cholelithiasis. No evidence of common duct stone
[2017-10-09] MEDS: Dextrose 5%/0.45% NS 1,000 ML IV SCH (18:21)
--- NOTE | 2017-10-09 18:35 | CON ---
CARDIOLOGY CONSULTATION DATE: 10/09/2017 HISTORY: The patient is a 72-year-old woman who presents with abdominal pain. She was found to have pancreatitis. The patient's previous cardiac history including a history of non-STEMI with cardiac catheterization on 02/21/2016, where she was found to have an occlusion of a nondominant RCA. The patient was treated medically and has done well. She denies chest pain. The patient's cardiac risk factors includes hypertension, and hypercholesterolemia. SOCIAL HISTORY: The patient does not smoke or drink. REVIEW OF SYSTEMS: A 14-point review of systems was reviewed in detail. Her symptoms are predominately epigastric discomfort. PHYSICAL EXAMINATION: VITAL SIGNS: Blood pressure varies from 148-176 systolic. NECK: Negative JVD. LUNGS: Without rales. HEART: With S1, S2. EXTREMITIES: Without edema. LABORATORIES: Reveal hemoglobin of 10.6. Chemistries; BUN and creatinine 37 and 1.5. Liver function tests are mildly elevated. IMPRESSION: 1. Acute pancreatitis. 2. Cholelithiasis. 3. Stable angina. 4. Coronary artery disease. 5. Hypertension. PLAN: Given these findings, the patient is currently n.p.o. We will continue her IV hydralazine. We will add a clonidine patch to help control her blood pressure until she is able to take p.o. medications. Juventino Bryant MD
--- NOTE | 2017-10-09 20:00 | CARD ---
APPROVED REPORT EKG Measurement Heart [id number] <Conclusion> Sinus rhythm with 1st degree AV block Otherwise normal ECG
[2017-10-09] MEDS ORDERED: Metoprolol Succinate 100 mg XL Tab PO SCH (22:00)
[2017-10-10] MEDS: Aztreonam 1 Gm in NS 100mL 100 ML IVPB SCH ×4 (05:20→23:14)
[2017-10-10] MEDS: metroNIDAZOLE IV 500 mg/100 ml 500 MG/100 ML BAG IVPB SCH ×3 (05:21→21:19)
[2017-10-10 07:03] LABS: HEMATOCRIT 32.1 % (36.0-48.0); MEAN CELL VOLUME 93.6 fl (80.0-105.0); MEAN CORPUSCULAR HEMOGLOBIN 29.4 pg (25.0-35.0); MEAN CORPUSCULAR HGB CONC 31.5 g/dl (31.0-37.0); MEAN PLATELET VOLUME 10.3 fl (7.0-11.0); RED CELL DISTRIBUTION WIDTH 13.9 % (11.5-14.5); WHITE BLOOD COUNT 7.2 10^3/ul (4.5-11.0)
--- NOTE | 2017-10-10 07:13 | CP.PCM.PN ---
Subjective - Date & Time of Evaluation Date of Evaluation: 10/10/17 Time of Evaluation: 07:10 - Subjective Subjective: Medicine note for Dr. Cutler Patient seen and examined at bedside. Patient resting comfortably in bed with no new complaints at this time. Patient says her abdominal pain has improved and she denies any acute events over night. Denies n/v/d. Objective - Vital Signs/Intake and Output Vital Signs (last 24 hours): Temp Pulse Resp BP Pulse Ox 98.6 F 60 21 174/97 H 95 10/10/17 04:00 10/10/17 06:00 10/10/17 06:00 10/10/17 06:00 10/10/17 06:00 Intake and Output: 10/10/17 10/10/17 06:59 18:59 Intake Total 880 Output Total 800 Balance 80 - Medications Medications: Current Medications Acetaminophen (Tylenol 325mg Tab) 650 mg PO Q4 PRN PRN Reason: Fever >100.4 F Alendronate Sodium (Fosamax) 70 mg PO Q7D [facility] Last Admin: 10/10/17 06:52 Dose: 70 mg Allopurinol (Zyloprim) 100 mg PO BID [facility] Last Admin: 10/09/17 17:07 Dose: 100 mg Aspirin (Aspirin Chewable) 81 mg PO DAILY [facility] Last Admin: 10/09/17 09:12 Dose: 81 mg Clonidine HCl (Catapres Tts1 0.1 Mg/24 Hr) 1 patch TD Q7D@1000 [facility] Last Admin: 10/09/17 11:26 Dose: 1 patch Diphenhydramine HCl (Benadryl) 25 mg PO HS PRN PRN Reason: Insomnia Docusate Sodium (Colace) 100 mg PO BID [facility] Last Admin: 10/09/17 17:07 Dose: 100 mg Heparin Sodium (Porcine) (Heparin) 5,000 units SC Q8 [facility] PRN Reason: Protocol Last Admin: 10/10/17 05:22 Dose: 5,000 units Hydralazine HCl (Apresoline) 10 mg IVP Q6 PRN PRN Reason: FORSBP>=170&/ORDBP>=100MMHG Hydromorphone HCl (Dilaudid) 0.5 mg IVP Q4H PRN PRN Reason: Pain, moderate (4-7) Metronidazole (Flagyl) 500 mg in 100 mls @ 100 mls/hr IVPB Q8 [facility] PRN Reason: Protocol Last Admin: 10/10/17 05:21 Dose: 100 mls/hr Dextrose/Sodium Chloride (Dextrose 5%/0.45% Ns 1000 Ml) 1,000 mls @ 60 mls/hr IV .[id number] [facility] Last Admin: 10/09/17 18:21 Dose: 60 mls/hr Aztreonam (Azactam 1 Gm) 100 mls @ 100 mls/hr IVPB Q8 [facility] PRN Reason: Protocol Stop: 10/16/17 23:16 Last Admin: 10/10/17 05:20 Dose: 100 mls/hr Insulin Human Lispro (Humalog Med) 0 units SC ACHS [facility] PRN Reason: Protocol Last Admin: 10/09/17 21:46 Dose: Not Given Ondansetron HCl (Zofran Inj) 4 mg IVP Q4H PRN PRN Reason: Nausea/Vomiting Pantoprazole Sodium (Protonix Inj) 40 mg IVP Q12 [facility] Last Admin: 10/09/17 21:47 Dose: 40 mg Sertraline HCl (Zoloft) 100 mg PO DAILY [facility] Last Admin: 10/09/17 09:13 Dose: 100 mg - Labs Labs: 10/09/17 07:00 10/09/17 07:00 PT 11.4 SECONDS (9.4-12.5) 10/09/17 02:37 INR 1.04 (0.93-1.08) 10/09/17 02:37 APTT 27.5 Seconds (25.1-36.5) 10/09/17 02:37 - Constitutional Appears: Non-toxic, No Acute Distress - Head Exam Head Exam: ATRAUMATIC, NORMOCEPHALIC - Eye Exam Eye Exam: EOMI, Normal appearance - ENT Exam ENT Exam: Mucous Membranes Moist - Respiratory Exam Respiratory Exam: Clear to Ausculation Bilateral, NORMAL BREATHING PATTERN. absent: Rales, Rhonchi, Wheezes - Cardiovascular Exam Cardiovascular Exam: RRR, +S1, +S2. absent: Bradycardia, Tachycardia - GI/Abdominal Exam GI & Abdominal Exam: Soft, Tenderness (RUQ pain with deep palpation), Normal Bowel Sounds. absent: Distended - Extremities Exam Extremities Exam: Pedal Edema (mild non pitting ). absent: Calf Tenderness - Neurological Exam Neurological Exam: Alert, Awake - Psychiatric Exam Psychiatric exam: Normal Affect, Normal Mood - Skin Skin Exam: Dry, Intact, Normal Color, Warm Assessment and Plan - Assessment and Plan (Free Text) Assessment: Acute pancreatitis secondary to cholelithiasis * CT abdomen: acute pancreatitis; no calcifications noted. Mild prominence of common bile duct/proximal pancreatic duct. Pulmonary nodules will require outpatient followup if high risk. IUD in place. * EKG: NSR at 69 bpm. 1st degree AV block. No acute changes. * Abdomen US: cholelithiasis with no signs of cholecystitis. Borderline biliary ductal dilatation (0.77cm diameter). * MRCP: colelithiasis, no stones in the CBD * Lipase: 58226 * Amylase: 1708 * Lipid panel: Trig 192, Chol 174, LDL 113, HDL 37 * Blood cultures negative x24h * Procal 0.36 * Lactic Acid: 0.5 * Thyroid panel: Free T4 1.56, T4 8.6, TSH 2.68 * NPO * D5 & 1/2NS @100cc/h * ABX: Aztreonam & Flagyl * Dilaudid PRN pain and colace PRN constipation * Zofran PRN n/v * Tylenol PRN fever * Surgery consulted, recs appreciated * will need cholecystectomy * GI consulted, recs appreciated Hepatitis C * Hep panel: +Hep C Ab * f/u genotype, quant, viral load * Transaminitis with AST 111 and ALT 104 LIANNA vs CKD * continue hydration and monitor I/O and Cr * avoid nephrotoxic drugs * UA: Protein 30, Blood trace, leukocyte esterase moderate, trace course granular casts Hx CAD * continue ASA * EKG showed no acute changes * Lipid panel: Trig 192, Chol 174, LDL 113, HDL 37 * Troponin negative x1, CK 86, LDH 659 Hx DM2 * ISS * Accucheck ACHS * HbA1C: 6.7 Hx HTN * Dr. Bryant (cardio) consulted - recs appreciated * IV hydralazine and clonidine patch while NPO * Hold HCTZ, Diovan and Metoprolol because NPO Hx HLD * cont Lipitor, Fenofibrate * Lipid panel: Trig 192, Chol 174, LDL 113, HDL 37 Hx Depression * Zoloft 100mg PO QD Hx Osteoporosis * Fosamax 70 mg PO Q7D Prophylactic Measures * PTX/Heparin/SCDs
[2017-10-10 07:48] LABS: ALB/GLOB RATIO 1.1 (1.1-1.8); BILIRUBIN,DIRECT 0.7 mg/dL (0.0-0.4); BILIRUBIN,TOTAL 0.7 mg/dL (0.2-1.3); CALCIUM 8.6 mg/dL (8.4-10.5); MAGNESIUM 2.3 mg/dL (1.7-2.2); PHOSPHOROUS 4.3 mg/dL (2.5-4.5); POTASSIUM 4.3 mmol/L (3.6-5.0); TOTAL PROTEIN 7.6 g/dL (5.8-8.3)
[2017-10-10 08:23] LABS: RETIC% 2.37 % (0.5-1.5)
[2017-10-10 08:26] LABS: IRON 55 ug/dL (45-180)
--- NOTE | 2017-10-10 08:30 | HP ---
HISTORY OF PRESENT ILLNESS: The patient is a 72-year-old [place] female presented to the Emergency Room at [facility] complaining of 1-day history of epigastric pain, upper abdominal pain radiating to the entire ribcage and periumbilical pain associated with epigastric pain and nausea. The patient was brought to the emergency room by [facility]. According to the patient's [id number], Roque present at the bedside, most of the history was obtained through her. The patient denies any chest pain. Denies hemoptysis, hematemesis, or melena.. According to the ER physician evaluation, the patient has been experiencing upper abdominal pain since eating breakfast since yesterday morning, developed bilateral ribcage pain associated with nausea and vomiting. According to the relative's report, the patient also had elevated blood pressure. CODE STATUS: FULL CODE. LIVING WILL ADVANCE DIRECTIVE: None. ALLERGIES: PENICILLIN. Height is 5 feet. Weight is 166. BMI is 33. HOME MEDICATIONS: 1. Xyzal 5 mg daily. 2. Zoloft 100 mg daily. 3. Fosamax 70 mg weekly. 4. Jentadueto 2.03/1000 twice a day. 5. Levothyroxine 25 mcg daily. 6. Zyloprim 100 mg twice a day. 7. Vitamin D2 weekly. 8. Fenofibrate 134. 9. Toprol XL 200 mg at bedtime. 10. Lipitor 80 mg daily. 11. Aspirin 81 daily. 12. Valsartan/hydrochlorothiazide 320/25 daily. SOCIAL HISTORY: Negative for smoking. Negative for alcohol. Negative for communicable/transmissible disease. OCCUPATIONAL HISTORY: Disabled. MENSTRUAL HISTORY: Postmenopausal. PAST MEDICAL AND SURGICAL HISTORY: History of depression, history of osteoporosis, history of type 2 diabetes mellitus, history of hypothyroidism, history of hyperuricemia, history of hypovitaminosis D, history of dyslipidemia, history of hypertension, history of angioplasty and stent placement, history of cardiac catheterization done in 02/2016 at [facility], history of patent stent in the midportion of the LAD with diffuse intimal irregularities, history of diffuse atherosclerosis of the left circumflex and subtotal occlusion of the right coronary artery, history of non-ST elevation myocardial infarction secondary to subtotal occlusion of the nondominant right coronary artery, history of left anterior descending angioplasty and stent placement. The patient's last echocardiogram done in 02/2016 shows ejection fraction of 59% with borderline concentric left ventricular hypertrophy and abnormal grade 1 relaxation pattern with mildly sclerotic aortic valve, mildly thickened mitral valve and mild pulmonary hypertension with right ventricular systolic pressure of 35 mmHg and mild tricuspid regurgitation. Past medical history is also significant for history of acute kidney injury, history of nephrotic range proteinuria, history of coronary artery disease and angioplasty, history of acute coronary syndrome, history of mild right-sided diastolic congestive heart failure, history of hypertension, history of gastroesophageal reflux, history of hypothyroidism, history of hypertensive emergency. The patient's past medical history is significant for angioplasty and stent placement, family history of coronary artery disease and myocardial infarction, history of PENICILLIN ALLERGY. The patient is seen in ICU bed 7. The patient is lying in the bed with the patient's [id number] at bedside. PHYSICAL EXAMINATION: GENERAL: The patient appears to be comfortable in no distress. The patient is seen lying in the bed. VITAL SIGNS: T max 98.4; heart rate 58-64-70; blood pressure ranging from 195/92, 155/82, 176/88, 162/72; respiration 16-18; O2 sat 96%. HEENT: Head examination; normocephalic, atraumatic. HEENT examination shows pinkish pale conjunctivae. Dry oral mucosa. No neck rigidity. CHEST: Kyphosis. LUNG: Examination shows questionable upper lung field rhonchi. CARDIOVASCULAR: Examination shows S1, S2, regular rhythm. Questionable soft systolic murmur, right second intercostal space, left sternal border, left second intercostal space. ABDOMEN: Slightly protuberant. Positive epigastric, right upper quadrant periumbilical tenderness. Positive guarding noted. Questionable rebound tenderness noted. Questionable right costovertebral angle tenderness noted. Suprapubic distention noted. GENITALIA: Female. RECTAL: Examination is deferred. EXTREMITIES: Shows no pitting edema, no calf tenderness, no Homans signs. NEUROLOGIC: The patient is alert, awake, responsive, follows command. Moves upper and lower extremity without assistance. Body mass index is 33. DIAGNOSTICS: 10/09/2017, WBC 13.2 and 12.0, hemoglobin/hematocrit 11.2/34.5 and 10.6/33.5, platelet 262 and 306. PT/PTT 11.4/27.5. Chemistries are significant for initial BUN and creatinine of 40 and 1.6, repeat 137 and 1.5. Sodium 141, potassium 4.7, chloride 107, CO2 of 22 and 23, anion gap 16 to 17. GFR is 34. Random glucose 109 and , lactic acid is 0.5, uric acid 6.5, calcium 8.9, phosphorus 4.3, magnesium is low. Initial AST 111, repeat AST 83. Initial ALT 104, repeat ALT 89. Alk phos is consistently normal. Troponin is negative. Triglyceride 192, cholesterol 174, LDL 113, HDL is low as 37, amylase 1708, lipase is 51,400. TSH is 2.6. T4 is 8.6. Chest x-ray was done in the Emergency Room. Abdominal ultrasound shows hepatomegaly with fatty infiltrate, gallstones, gallbladder sludge, borderline biliary ductal dilatation. Abdominal CT shows atelectasis, scarring, left lower lobe nodule, fatty liver, cholelithiasis, dilated common bile duct, problems of proximal pancreatic duct, stranding of the pancreatic head, colonic under distention, IUD noted. Degenerative joint disease of the spine noted, umbilical hernia noted. EKG shows sinus rhythm with first-degree AV block. The patient was seen in the Emergency Room by Dr. Mills. The patient was treated in the ER with IV fluid, morphine, and Pepcid. The patient was given Azactam 1 g, Flagyl 500 IV. The patient was given IV fluid and Zofran 4 mg. IMPRESSION AND PLAN: A 72-year-old female with history of coronary artery disease, coronary angioplasty, non-ST elevation myocardial infarction, type 2 diabetes mellitus, hypertension, hyperlipidemia, hypothyroidism, presents with 1 day history of epigastric pain, abdominal pain and vomiting. In addition, the patient also complained of upper abdominal pain, radiating to the ribcage pain with elevated blood pressure. 1. Acute gallstone pancreatitis. 2. Questionable systemic inflammatory response syndrome. 3. Hypertension. 4. Sinus bradycardia. 5. Leukocytosis. 6. Normocytic anemia. 7. Acute kidney injury with chronic kidney disease of stage III. 8. Hyperuricemia. 9. Gallstone transaminitis. 10. Hyperuricemia. 11. Hypertriglyceridemia, hypercholesteremia with elevated LDL. 12. History of hypothyroidism. 13. Acute gallstone pancreatitis with elevated amylase and lipase. 14. Abdominal pain secondary to above. 15. Left lower lobe 0.5-mm pulmonary nodule. 16. Hypertension. 17. Hepatomegaly with fatty hepatic steatosis and fatty infiltration of the liver. 18. Gallbladder sludge with cholelithiasis, 19. Dilated common bile duct. 20. Biliary ductal dilatation. 21. Cholelithiasis. 22. Hepatic steatosis with fatty infiltration of the liver. 23. Bibasilar atelectasis and scarring, 0.5-cm left lower lobe pulmonary nodule. 24. Common bile duct prominence with proximal pancreatic duct prominence and stranding of the pancreatic head. 25. Colonic segmental under distention. 26. Degenerative joint disease of the spine. 27. Fat containing umbilical hernia. 28. Atherosclerosis. 29. Sinus bradycardia with questionable first-degree AV block. 30. History of depression, osteoporosis, type 2 diabetes, hypothyroidism, hyperuricemia, hypovitaminosis D, history of hypertension and dyslipidemia. PLAN: At this time, the patient's BISAP and [place] criteria was assessed, BISAP criteria was 2. The patient was admitted by the ER physician to telemetry but the patient was placed in ICU for some reason. The patient has been ordered serial labs. Blood cultures, urine cultures and MRSA screen ordered. Consultation with Cardiology for preop clearance, Surgery, and Gastroenterology. Procalcitonin level ordered. The patient has been started on hydralazine 10 mg IV q. 6 p.r.n. for systolic blood pressure greater than equal to 170 and diastolic blood pressure greater than equal to 100, aspirin 81 mg daily, Azactam 500 mg IV q. 8. The patient is on Colace 100 mg twice a day. The patient has been ordered, clonidine 0.1 mg patch weekly by Cardiology, Dilaudid 0.5 mg IV q. 4, Flagyl 500 IV q. 8, Fosamax 70 mg q. 7 days, heparin 5000 subcu q. 8 hours, medium dose Humalog sliding scale coverage. The patient is started on IV fluid Ringer Lactate at 150 mL an hour, Lopressor 25 twice a day will be discontinued as the patient is already on clonidine patch. The patient has been ordered magnesium sulfate rider. The patient is on Protonix 40 IV q. 12, Tylenol p.r.n., Zofran 4 mg IV q. 4 p.r.n., Zoloft 100 mg daily and Zyloprim 100 mg twice a day. MRCP has been ordered, repeat EKG ordered. The patient is n.p.o. SCDs, PADDY stockings ordered. The patient's condition, diagnosis, treatment plan, management plan, need for most likely surgical intervention was explained to the patient and the patient's [id number], who was present at the bedside in layman's language. All questions concerned answered, which they acknowledged and understood.. The patient's [id number] was explained about most likely surgical intervention which has already been explained to the patient's family by the surgical team. The patient's family was also explained about need for further diagnostic therapeutic intervention, which the patient will most likely will undergo for her management and treatment plan. Dictated and electronically signed, not read. Signing off; Cecil Cutler MD
--- NOTE | 2017-10-10 08:44 | CP.PCM.PCO ---
Physician Communication Note - Physician Communication Note Physician Communication Note: Improving/Lap Cholecystectomy ? Sunday
[2017-10-10] MEDS: Insulin Lispro (humaLOG) MEDIUM Coverage SC SCH ×3 (09:24→17:05)
--- NOTE | 2017-10-10 09:35 | CP.PCM.PN ---
Subjective - Date & Time of Evaluation Date of Evaluation: 10/10/17 Time of Evaluation: 09:32 - Subjective Subjective: Surgery Note for Dr. He: Pt seen and examined at bedside. No acute overnight events. Pt states that abdominal pain has resolved. Pt denied CP, SOB, nausea, vomiting, chills, fever , and HIGH. Objective - Vital Signs/Intake and Output Vital Signs (last 24 hours): Temp Pulse Resp BP Pulse Ox 98.6 F 60 21 174/97 H 95 10/10/17 04:00 10/10/17 06:00 10/10/17 06:00 10/10/17 06:00 10/10/17 06:00 Intake and Output: 10/10/17 10/10/17 06:59 18:59 Intake Total 880 Output Total 800 Balance 80 - Medications Medications: Current Medications Acetaminophen (Tylenol 325mg Tab) 650 mg PO Q4 PRN PRN Reason: Fever >100.4 F Alendronate Sodium (Fosamax) 70 mg PO Q7D [facility] Last Admin: 10/10/17 06:52 Dose: 70 mg Allopurinol (Zyloprim) 100 mg PO BID [facility] Last Admin: 10/09/17 17:07 Dose: 100 mg Aspirin (Aspirin Chewable) 81 mg PO DAILY [facility] Last Admin: 10/09/17 09:12 Dose: 81 mg Clonidine HCl (Catapres Tts1 0.1 Mg/24 Hr) 1 patch TD Q7D@1000 [facility] Last Admin: 10/09/17 11:26 Dose: 1 patch Diphenhydramine HCl (Benadryl) 25 mg PO HS PRN PRN Reason: Insomnia Docusate Sodium (Colace) 100 mg PO BID [facility] Last Admin: 10/09/17 17:07 Dose: 100 mg Heparin Sodium (Porcine) (Heparin) 5,000 units SC Q8 FIDELINA PRN Reason: Protocol Last Admin: 10/10/17 05:22 Dose: 5,000 units Hydralazine HCl (Apresoline) 10 mg IVP Q6 PRN PRN Reason: FORSBP>=170&/ORDBP>=100MMHG Hydromorphone HCl (Dilaudid) 0.5 mg IVP Q4H PRN PRN Reason: Pain, moderate (4-7) Metronidazole (Flagyl) 500 mg in 100 mls @ 100 mls/hr IVPB Q8 [facility] PRN Reason: Protocol Last Admin: 10/10/17 05:21 Dose: 100 mls/hr Dextrose/Sodium Chloride (Dextrose 5%/0.45% Ns 1000 Ml) 1,000 mls @ 60 mls/hr IV .[id number] [facility] Last Admin: 10/09/17 18:21 Dose: 60 mls/hr Aztreonam (Azactam 1 Gm) 100 mls @ 100 mls/hr IVPB Q8 [facility] PRN Reason: Protocol Stop: 10/16/17 23:16 Last Admin: 10/10/17 05:20 Dose: 100 mls/hr Insulin Human Lispro (Humalog Med) 0 units SC ACHS [facility] PRN Reason: Protocol Last Admin: 10/09/17 21:46 Dose: Not Given Ondansetron HCl (Zofran Inj) 4 mg IVP Q4H PRN PRN Reason: Nausea/Vomiting Pantoprazole Sodium (Protonix Inj) 40 mg IVP Q12 [facility] Last Admin: 10/09/17 21:47 Dose: 40 mg Sertraline HCl (Zoloft) 100 mg PO DAILY [facility] Last Admin: 10/09/17 09:13 Dose: 100 mg - Labs Labs: 10/10/17 06:00 10/10/17 06:00 PT 11.4 SECONDS (9.4-12.5) 10/09/17 02:37 INR 1.04 (0.93-1.08) 10/09/17 02:37 APTT 27.5 Seconds (25.1-36.5) 10/09/17 02:37 - Constitutional Appears: No Acute Distress - Head Exam Head Exam: ATRAUMATIC, NORMOCEPHALIC - Eye Exam Eye Exam: EOMI, PERRL. absent: Scleral icterus - ENT Exam ENT Exam: Normal Exam - Neck Exam Neck Exam: Full ROM - Respiratory Exam Respiratory Exam: Clear to Ausculation Bilateral. absent: Rales, Rhonchi, Wheezes - Cardiovascular Exam Cardiovascular Exam: RRR. absent: Gallop, Rubs, Murmur - GI/Abdominal Exam GI & Abdominal Exam: Soft. absent: Distended, Guarding, Tenderness, Mass, Rebound - Extremities Exam Extremities Exam: Full ROM - Neurological Exam Neurological Exam: Awake, Oriented x3 - Skin Skin Exam: Dry, Intact, Normal Color, Warm Assessment and Plan - Assessment and Plan (Free Text) Assessment: 72 yo F with PMH of HTN, HLD, DM2, CAD s/p stent presents with abdominal pain found to have gallstone pancreatitis. Plan: - Afebrile, no leukocytosis - BUN improving - Lipase on admission [id number] - CT abdomen showed acute pancreatitis, Mild CBD prominence. - US abdomen showed Cholelithiasis, no cholecystitis. CBD 8mm. - MRCP showed cholelithiasis, but no choledocolithiasis - NPO, consider resuming diet - IVF - Plan for possible lap [place] this Sunday DW Dr. Neri Patterson, PGY1
--- NOTE | 2017-10-10 10:02 | CP.PCM.CON ---
History of Present Illness - History of Present Illness History of Present Illness: 72 year old [place] female with PMH of HTN, CAD S/P PCI, dyslipidemia, DM, obesity with BMI 32 came in to [facility] because of severe epigastric discomfort and vomiting since 2 days, which was intermittent and more severe during food intake. She denies diarrhea, no fever or chills, no headache or dizziness, no cough or colds, no chest pain, no SOB, no dysuria. In the ED, she was noted to have lipase above 50,000 and is currently being treated for acute pancreatitis. There is also concern for gallstones and cholecystitis and Infectious diseases consult is requested to further evaluate and manage. Patient's last travel outside of the [place] and to [place] was in 2014. Review of Systems - Review of Systems All systems: reviewed and no additional remarkable complaints except (as per HPI ) Past Patient History - Infectious Disease Hx of Infectious Diseases: None - Past Medical History & Family History Past Medical History?: Yes - Past Social History Smoking Status: Never Smoked - CARDIAC Hx Cardiac Disorders: Yes Hx Angina: Yes Hx Cardia Arrhythmia: No Hx Circulatory Problems: No Hx Congestive Heart Failure: No Hx Heart Murmur: No Hx Hypercholesterolemia: No Hx Hypertension: Yes Hx Internal Defibrillator: No Hx Mitral Valve Prolapse: No Hx Pacemaker: No Hx Peripheral Edema: No - PULMONARY Hx Respiratory Disorders: No - NEUROLOGICAL Hx Neurological Disorder: No - HEENT Hx HEENT Problems: No - RENAL Hx Chronic Kidney Disease: No - ENDOCRINE/METABOLIC Hx Diabetes Mellitus Type 2: Yes - HEMATOLOGICAL/ONCOLOGICAL Hx Blood Disorders: No - INTEGUMENTARY Hx Dermatological Problems: No - MUSCULOSKELETAL/RHEUMATOLOGICAL Hx Falls: No - GASTROINTESTINAL Hx Gastrointestinal Disorders: No - GENITOURINARY/GYNECOLOGICAL Hx Genitourinary Disorders: No - PSYCHIATRIC Hx Psychophysiologic Disorder: No Hx Substance Use: No - SURGICAL HISTORY Hx Cardiac Catheterization: Yes Hx Coronary Stent: Yes - ANESTHESIA Hx Anesthesia: Yes Hx Anesthesia Reactions: No Hx Malignant Hyperthermia: No Meds Allergies/Adverse Reactions: Allergies Allergy/AdvReac Type Severity Reaction Status Date / Time Penicillins Allergy RASH Verified 02/15/16 20:12 - Medications Medications: Current Medications Acetaminophen (Tylenol 325mg Tab) 650 mg PO Q4 PRN PRN Reason: Fever >100.4 F Alendronate Sodium (Fosamax) 70 mg PO Q7D [facility] Allopurinol (Zyloprim) 100 mg PO BID [facility] Last Admin: 10/09/17 17:07 Dose: 100 mg Aspirin (Aspirin Chewable) 81 mg PO DAILY [facility] Last Admin: 10/09/17 09:12 Dose: 81 mg Clonidine HCl (Catapres Tts1 0.1 Mg/24 Hr) 1 patch TD Q7D@1000 [facility] Last Admin: 10/09/17 11:26 Dose: 1 patch Diphenhydramine HCl (Benadryl) 25 mg PO HS PRN PRN Reason: Insomnia Docusate Sodium (Colace) 100 mg PO BID [facility] Last Admin: 10/09/17 17:07 Dose: 100 mg Heparin Sodium (Porcine) (Heparin) 5,000 units SC Q8 [facility] PRN Reason: Protocol Last Admin: 10/09/17 21:46 Dose: 5,000 units Hydralazine HCl (Apresoline) 10 mg IVP Q6 PRN PRN Reason: FORSBP>=170&/ORDBP>=100MMHG Hydromorphone HCl (Dilaudid) 0.5 mg IVP Q4H PRN PRN Reason: Pain, moderate (4-7) Metronidazole (Flagyl) 500 mg in 100 mls @ 100 mls/hr IVPB Q8 [facility] PRN Reason: Protocol Last Admin: 10/09/17 21:45 Dose: 100 mls/hr Dextrose/Sodium Chloride (Dextrose 5%/0.45% Ns 1000 Ml) 1,000 mls @ 60 mls/hr IV .[id number] [facility] Last Admin: 10/09/17 18:21 Dose: 60 mls/hr Aztreonam (Azactam 1 Gm) 100 mls @ 100 mls/hr IVPB Q8 [facility] PRN Reason: Protocol Stop: 10/16/17 14:59 Insulin Human Lispro (Humalog Med) 0 units SC ACHS [facility] PRN Reason: Protocol Last Admin: 10/09/17 21:46 Dose: Not Given Metoprolol Tartrate (Lopressor) 25 mg PO BID [facility] Last Admin: 10/09/17 17:07 Dose: 25 mg Ondansetron HCl (Zofran Inj) 4 mg IVP Q4H PRN PRN Reason: Nausea/Vomiting Pantoprazole Sodium (Protonix Inj) 40 mg IVP Q12 [facility] Last Admin: 10/09/17 21:47 Dose: 40 mg Sertraline HCl (Zoloft) 100 mg PO DAILY [facility] Last Admin: 10/09/17 09:13 Dose: 100 mg Physical Exam - Constitutional Appears: Non-toxic - Head Exam Head Exam: NORMAL INSPECTION - ENT Exam ENT Exam: Mucous Membranes Moist - Neck Exam Neck exam: Negative for: Meningismus - Respiratory Exam Respiratory Exam: Decreased Breath Sounds. absent: Rales - Cardiovascular Exam Cardiovascular Exam: +S1, +S2 - GI/Abdominal Exam GI & Abdominal Exam: Soft, Tenderness (epigastric area). absent: Distended, Firm, Guarding, Rebound, Rigid Results - Vital Signs Recent Vital Signs: Last Vital Signs Temp 98.5 F 10/09/17 20:00 Pulse 60 10/09/17 20:00 Resp 15 10/09/17 20:00 BP 140/71 10/09/17 20:00 Pulse Ox 93 L 10/09/17 20:00 - Labs Result Diagrams: 10/10/17 06:00 10/10/17 06:00 Labs: Laboratory Results - last 24 hr 10/09/17 10/09/17 10/09/17 06:30 07:00 07:00 WBC 12.0 H RBC 3.60 Hgb 10.6 L Hct 33.5 L MCV 93.1 MCH 29.4 MCHC 31.6 RDW 13.8 Plt Count 262 MPV 9.9 Sodium Potassium Chloride Carbon Dioxide Anion Gap BUN Creatinine Est GFR ( Amer) Est GFR (Non-Af Amer) POC Glucose (mg/dL) Random Glucose Hemoglobin A1c 6.7 H Lactic Acid Uric Acid Calcium Phosphorus Magnesium Total Bilirubin AST ALT Alkaline Phosphatase Total Protein Albumin Globulin Albumin/Globulin Ratio Triglycerides Cholesterol LDL Cholesterol Direct HDL Cholesterol Amylase 1708 H Procalcitonin Free T4 Thyroxine (T4) TSH 3rd Generation Urine Color Urine Appearance Urine pH Ur Specific Floyd Urine Protein Urine Glucose (UA) Urine Ketones Urine Blood Urine Nitrate Urine Bilirubin Urine Urobilinogen Ur Leukocyte Esterase Urine RBC Urine WBC Ur Epithelial Cells Urine Bacteria Coarse Granular Casts Hepatitis A IgM Ab Hep Bs Antigen Hep B Core IgM Ab Hepatitis C Antibody 10/09/17 10/09/17 10/09/17 07:00 07:00 07:00 WBC RBC Hgb Hct MCV MCH MCHC RDW Plt Count MPV Sodium 141 Potassium 4.7 Chloride 107 Carbon Dioxide 22 Anion Gap 17 BUN 37 H Creatinine 1.5 H Est GFR ( Amer) 41 Est GFR (Non-Af Amer) 34 POC Glucose (mg/dL) Random Glucose 115 H Hemoglobin A1c Lactic Acid Uric Acid 6.5 H Calcium 8.9 Phosphorus 4.3 Magnesium 1.5 L Total Bilirubin 1.0 AST 83 H D ALT 89 H Alkaline Phosphatase 76 Total Protein 7.8 Albumin 4.1 Globulin 3.7 Albumin/Globulin Ratio 1.1 Triglycerides 192 H Cholesterol 174 LDL Cholesterol Direct 113 HDL Cholesterol 37 Amylase Procalcitonin Free T4 1.56 Thyroxine (T4) 8.6 TSH 3rd Generation 2.68 Urine Color Urine Appearance Urine pH Ur Specific Floyd Urine Protein Urine Glucose (UA) Urine Ketones Urine Blood Urine Nitrate Urine Bilirubin Urine Urobilinogen Ur Leukocyte Esterase Urine RBC Urine WBC Ur Epithelial Cells Urine Bacteria Coarse Granular Casts Hepatitis A IgM Ab Negative Hep Bs Antigen Negative Hep B Core IgM Ab Negative Hepatitis C Antibody Reactive 10/09/17 10/09/17 10/09/17 07:00 07:18 09:00 WBC RBC Hgb Hct MCV MCH MCHC RDW Plt Count MPV Sodium Potassium Chloride Carbon Dioxide Anion Gap BUN Creatinine Est GFR ( Amer) Est GFR (Non-Af Amer) POC Glucose (mg/dL) 120 H Random Glucose Hemoglobin A1c 6.7 H Lactic Acid Uric Acid Calcium Phosphorus Magnesium Total Bilirubin AST ALT Alkaline Phosphatase Total Protein Albumin Globulin Albumin/Globulin Ratio Triglycerides Cholesterol LDL Cholesterol Direct HDL Cholesterol Amylase Procalcitonin 0.36 Free T4 Thyroxine (T4) TSH 3rd Generation Urine Color Urine Appearance Urine pH Ur Specific Floyd Urine Protein Urine Glucose (UA) Urine Ketones Urine Blood Urine Nitrate Urine Bilirubin Urine Urobilinogen Ur Leukocyte Esterase Urine RBC Urine WBC Ur Epithelial Cells Urine Bacteria Coarse Granular Casts Hepatitis A IgM Ab Hep Bs Antigen Hep B Core IgM Ab Hepatitis C Antibody 10/09/17 10/09/17 10/09/17 09:00 11:20 16:27 WBC RBC Hgb Hct MCV MCH MCHC RDW Plt Count MPV Sodium Potassium Chloride Carbon Dioxide Anion Gap BUN Creatinine Est GFR ( Amer) Est GFR (Non-Af Amer) POC Glucose (mg/dL) 99 96 Random Glucose Hemoglobin A1c Lactic Acid 0.5 L Uric Acid Calcium Phosphorus Magnesium Total Bilirubin AST ALT Alkaline Phosphatase Total Protein Albumin Globulin Albumin/Globulin Ratio Triglycerides Cholesterol LDL Cholesterol Direct HDL Cholesterol Amylase Procalcitonin Free T4 Thyroxine (T4) TSH 3rd Generation Urine Color Urine Appearance Urine pH Ur Specific Floyd Urine Protein Urine Glucose (UA) Urine Ketones Urine Blood Urine Nitrate Urine Bilirubin Urine Urobilinogen Ur Leukocyte Esterase Urine RBC Urine WBC Ur Epithelial Cells Urine Bacteria Coarse Granular Casts Hepatitis A IgM Ab Hep Bs Antigen Hep B Core IgM Ab Hepatitis C Antibody 10/09/17 10/09/17 16:39 21:45 WBC RBC Hgb Hct MCV MCH MCHC RDW Plt Count MPV Sodium Potassium Chloride Carbon Dioxide Anion Gap BUN Creatinine Est GFR ( Amer) Est GFR (Non-Af Amer) POC Glucose (mg/dL) 90 Random Glucose Hemoglobin A1c Lactic Acid Uric Acid Calcium Phosphorus Magnesium Total Bilirubin AST ALT Alkaline Phosphatase Total Protein Albumin Globulin Albumin/Globulin Ratio Triglycerides Cholesterol LDL Cholesterol Direct HDL Cholesterol Amylase Procalcitonin Free T4 Thyroxine (T4) TSH 3rd Generation Urine Color Yellow Urine Appearance Clear Urine pH 5.0 Ur Specific Floyd 1.020 Urine Protein 30 H Urine Glucose (UA) Negative Urine Ketones Negative Urine Blood Trace-intact H Urine Nitrate Negative Urine Bilirubin Negative Urine Urobilinogen 0.2 Ur Leukocyte Esterase Moderate H Urine RBC 2 - 5 Urine WBC 20 - 25 Ur Epithelial Cells 6 - 8 Urine Bacteria Many Coarse Granular Casts Trace H Hepatitis A IgM Ab Hep Bs Antigen Hep B Core IgM Ab Hepatitis C Antibody Assessment & Plan - Assessment and Plan (Free Text) Plan: Assessment Systemic Inflammatory response syndrome probably from acute pancreatitis R/O cholecystitis HTN CAD S/P PCI dyslipidemia DM obesity with BMI 32 Plan Started patient on Azactam and Flagyl pending blood cx; reviewed CT A/P and MRCP (no stones in the CBD) - plan for cholecystectomy when patient is more stable will monitor clinically and trend lipase levels, WBC count
[2017-10-10] MEDS: Dextrose 5%/0.45% NS 1,000 ML IV SCH ×2 (11:58→18:30)
--- NOTE | 2017-10-10 12:40 | PN ---
DATE: 10/10/2017 SUBJECTIVE: The patient is seen in intensive care. She is comfortable. Her abdominal pain has resolved. She denies any further nausea or vomiting. She denies any fevers or chills. CURRENT MEDICATIONS: Include Apresoline, aspirin, aztreonam, Benadryl, clonidine, docusate, Dilaudid, Flagyl 500 mg IV q.8 hours. Fosamax, heparin, Humalog insulin, pantoprazole, acetaminophen, Zofran, sertraline, and allopurinol. PHYSICAL EXAMINATION: VITAL SIGNS: Reveal temperature of 98.6, blood pressure of 174/97, and heart rate of 60. HEENT: Reveal sclerae to be white, conjunctivae pink. NECK: Supple. CHEST: Reveal lungs to be decreased breath sounds at the bases. HEART: Reveal a regular rate and rhythm. ABDOMEN: Soft. There is less epigastric tenderness. There is no rebound. There is no guarding. EXTREMITIES: Show no edema. LABORATORY DATA: Reveal white blood cell count of 7.2 and hemoglobin of 10.1. Chemistry reveal AST down to 72, ALT 71, and alkaline phosphatase is 79. Amylase is down to 365 and lipase is down to 1121. Hepatitis serology is negative. MRCP shows normal common bile duct, no common bile duct stones. Normal pancreatic duct. IMPRESSION: A 72-year-old female admitted to the hospital with severe abdominal pain found to have gallstone pancreatitis. Liver enzymes, amylase, and lipase were all trending downward, but still elevated. RECOMMENDATIONS: 1. Continue n.p.o. 2. Continue IV fluids. 3. Continue aztreonam. 4. Surgery is tentatively planned for the end of the week. I have discussed this case with surgeon, Dr. He. Gary Worrell MD
--- NOTE | 2017-10-10 13:42 | PN ---
DATE: 10/10/2017 SUBJECTIVE: The patient is seen, lying in the bed in room ICU, bed 7. The patient is in ICU due to no telemetry beds. The patient's son is at bedside. Overnight nursing notes were reviewed. The patient complained of insomnia for which the patient was given Benadryl with good response. The patient slept overnight. PHYSICAL EXAMINATION: VITAL SIGNS: T-max is 98.6. Telemetry shows sinus rhythm. Heart rate 55, 60, 58, 56, 57, 55 beats per minute. Blood pressure is 174/97, 140/61, 142/69, 129/66, 142/76, 157/63. Respiration 15 to 20. O2 sat is 95%. INTAKE AND OUTPUT: Does not appear to be accurate. HEENT: Head examination is normocephalic and atraumatic. HEENT examination shows pinkish pale conjunctivae. Dry oral mucosa. NECK: No neck rigidity. CHEST EXAMINATION: Kyphosis. LUNG: Examination is no rales, crackles or wheezing. CARDIOVASCULAR: S1, S2. Regular rhythm. ABDOMEN: Protuberant. Positive bowel sounds. GENITALIA: Female. RECTAL: Examination deferred. EXTREMITIES: Shows missing PADDY stocking and missing SCDs. MUSCULOSKELETAL: Examination shows a body mass index of 32.4. NEUROLOGIC: Limited. GAIT EXAMINATION: Not tested. DIAGNOSTICS: 10/10/2017, WBC 7.2, hemoglobin/hematocrit 10.1/32.1, and platelet 259. Reticulocyte count 2.37. Sodium 141, potassium 4.3, chloride 108, CO2 of 24, anion gap 14, BUN 28, creatinine 1.5. GFR 41-34. Glucose 92, 88, 84, 90, 96. Calcium 8.6, phosphorus 4.3, magnesium 2.3, iron 55, TIBC 357, iron saturation 15, AST 72, ALT 71, amylase is down to 365 from 1700, lipase is down to 1121 from 81587, AST is down to 72 from 111, ALT is down to 71 from 104. Hepatitis C antibodies reactive. 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 Blood cultures, no growth. The patient's MRCP of the abdomen shows cholelithiasis. No common bile duct stone. EKG from today was reviewed. DIAGNOSES: 1. Acute gallstone pancreatitis. 2. Questionable systemic inflammatory response syndrome. 3. Sinus bradycardia. 4. Hypertension. 5. Leukocytosis. 6. Elevated reticulocyte count. 7. Normocytic anemia. 8. Acute kidney injury with underlying chronic kidney disease, stage III. 9. Questionable borderline iron deficiency. 10. Gallstone pancreatitis, hepatitis, and transaminitis. 11. Type 2 diabetes mellitus with hemoglobin A1c of 6.7. 12. Hyperuricemia. 13. Proteinuria, microscopic hematuria, pyuria, bacteruria. 14. Reactive hepatitis C antibody. 15. Cholelithiasis. 16. Systemic inflammatory response syndrome probably secondary to acute gallstone pancreatitis with transaminitis, hepatitis. 17. Obesity with elevated body mass index. PLAN: At this time, the patient has been ordered serial labs. Current consultation with Cardiology, Gastroenterology, Infectious Disease, and Surgery. Surgical recommendation noted. CURRENT MEDICATIONS: Hydralazine 10 mg IV q. 6 h. p.r.n, aspirin 81 mg daily, Azactam 1 g IV q. 8 h., Benadryl 25 mg at bedtime p.r.n., clonidine patch 0.1 mg weekly, Colace 100 mg twice a day, D5 half normal saline at 100 mL/hour, Dilaudid 0.5 mg IV q. 4 hours p.r.n., for pain, Flagyl 500 IV q. 8 hours, Fosamax 70 mg weekly, heparin 5000 subcutaneous q. 8 hours, Humalog medium dose sliding scale coverage, Protonix 40 IV q. 12 hours, Zofran 4 mg IV q. 4 hours p.r.n., Zoloft 100 mg daily, allopurinol 100 mg twice a day. The patient is on NPH supplement. The patient has been ordered out of bed. PADDY stockings, SCDs, stool for occult blood, iron studies ordered. The patient's condition, diagnosis, treatment plan, management plan, and need for further diagnostic therapeutic intervention discussed with the patient and the patient's son present at the bedside. Dictated and electronically signed, not read. Cecil Cutler MD
--- NOTE | 2017-10-10 20:00 | PN ---
CARDIOLOGY FOLLOWUP DATE OF SERVICE: 10/10/2017 SUBJECTIVE: The patient is comfortable in bed. She remains n.p.o. OBJECTIVE: VITAL SIGNS: On physical exam, blood pressure varies from 140 to 174 systolic, heart rate in the 60s. NECK: Negative JVD. LUNGS: Without rales. HEART: With S1, S2. EXTREMITIES: Without edema. LABORATORY DATA: Hemoglobin is 10.1. Chemistries, magnesium is 2.3, creatinine is 1.5. IMPRESSION: 1. Acute pancreatitis. 2. Stable angina. 3. Coronary artery disease. 4. Hypertension. PLAN: Given these findings, the patient is scheduled for surgery at the end of the week. We will continue her topical clonidine for better blood pressure control. There are no cardiac contraindications for her planned surgery. Juventino Bryant MD
--- NOTE | 2017-10-10 23:43 | CARD ---
APPROVED REPORT EKG Measurement Heart [id number] <Conclusion> Normal sinus rhythm Normal ECG
[2017-10-11] MEDS: Dextrose 5%/0.45% NS 1,000 ML IV SCH (00:37)
[2017-10-11] MEDS: Insulin Lispro (humaLOG) MEDIUM Coverage SC SCH ×5 (00:37→22:05)
[2017-10-11] MEDS: Aztreonam 1 Gm in NS 100mL 100 ML IVPB SCH ×3 (05:11→21:04)
[2017-10-11] MEDS: metroNIDAZOLE IV 500 mg/100 ml 500 MG/100 ML BAG IVPB SCH ×3 (05:58→22:24)
[2017-10-11 07:35] LABS: HEMATOCRIT 32.5 % (36.0-48.0); MEAN CELL VOLUME 92.6 fl (80.0-105.0); MEAN CORPUSCULAR HEMOGLOBIN 29.9 pg (25.0-35.0); MEAN CORPUSCULAR HGB CONC 32.3 g/dl (31.0-37.0); MEAN PLATELET VOLUME 10.5 fl (7.0-11.0); RED CELL DISTRIBUTION WIDTH 13.8 % (11.5-14.5); WHITE BLOOD COUNT 9.1 10^3/ul (4.5-11.0)
--- NOTE | 2017-10-11 08:29 | CP.PCM.PN ---
Subjective - Date & Time of Evaluation Date of Evaluation: 10/11/17 Time of Evaluation: 08:29 - Subjective Subjective: Surgery Progress Note for Dr. He: Pt seen and examined at bedside. No acute overnight events. Pt states that pain is well controlled. Pt j carlos liquid diet well. Pt denied CP, SOB, nausea, vomiting , abdominal pain, fever, chills, or HIGH. Objective - Vital Signs/Intake and Output Vital Signs (last 24 hours): Temp Pulse Resp BP Pulse Ox 98.6 F 77 20 170/88 H 98 10/11/17 06:00 10/11/17 06:00 10/11/17 06:00 10/11/17 06:00 10/11/17 06:00 Intake and Output: 10/11/17 10/11/17 06:59 18:59 Intake Total 1470 Output Total 2 Balance 1468 - Medications Medications: Current Medications Acetaminophen (Tylenol 325mg Tab) 650 mg PO Q4 PRN PRN Reason: Fever >100.4 F Alendronate Sodium (Fosamax) 70 mg PO Q7D [facility] Last Admin: 10/10/17 06:52 Dose: 70 mg Allopurinol (Zyloprim) 100 mg PO BID [facility] Last Admin: 10/10/17 18:42 Dose: 100 mg Aspirin (Aspirin Chewable) 81 mg PO DAILY [facility] Last Admin: 10/10/17 09:27 Dose: 81 mg Clonidine HCl (Catapres Tts1 0.1 Mg/24 Hr) 1 patch TD Q7D@1000 [facility] Last Admin: 10/09/17 11:26 Dose: 1 patch Diphenhydramine HCl (Benadryl) 25 mg PO HS PRN PRN Reason: Insomnia Last Admin: 10/10/17 23:15 Dose: 25 mg Docusate Sodium (Colace) 100 mg PO BID [facility] Last Admin: 10/10/17 18:41 Dose: 100 mg Heparin Sodium (Porcine) (Heparin) 5,000 units SC Q8 [facility] PRN Reason: Protocol Last Admin: 10/11/17 05:58 Dose: 5,000 units Hydralazine HCl (Apresoline) 10 mg IVP Q6 PRN PRN Reason: FORSBP>=170&/ORDBP>=100MMHG Last Admin: 10/11/17 05:57 Dose: 10 mg Hydromorphone HCl (Dilaudid) 0.5 mg IVP Q4H PRN PRN Reason: Pain, moderate (4-7) Metronidazole (Flagyl) 500 mg in 100 mls @ 100 mls/hr IVPB Q8 [facility] PRN Reason: Protocol Last Admin: 10/11/17 05:58 Dose: 100 mls/hr Aztreonam (Azactam 1 Gm) 100 mls @ 100 mls/hr IVPB Q8 [facility] PRN Reason: Protocol Stop: 10/16/17 23:16 Last Admin: 10/11/17 05:11 Dose: 100 mls/hr Insulin Human Lispro (Humalog Med) 0 units SC ACHS [facility] PRN Reason: Protocol Last Admin: 10/11/17 08:08 Dose: Not Given Ondansetron HCl (Zofran Inj) 4 mg IVP Q4H PRN PRN Reason: Nausea/Vomiting Pantoprazole Sodium (Protonix Inj) 40 mg IVP Q12 [facility] Last Admin: 10/10/17 21:18 Dose: 40 mg Sertraline HCl (Zoloft) 100 mg PO DAILY [facility] Last Admin: 10/10/17 09:28 Dose: 100 mg - Labs Labs: 10/11/17 06:45 10/10/17 06:00 PT 11.4 SECONDS (9.4-12.5) 10/09/17 02:37 INR 1.04 (0.93-1.08) 10/09/17 02:37 APTT 27.5 Seconds (25.1-36.5) 10/09/17 02:37 - Constitutional Appears: No Acute Distress - Head Exam Head Exam: ATRAUMATIC, NORMOCEPHALIC - Eye Exam Eye Exam: Normal appearance - ENT Exam ENT Exam: Mucous Membranes Moist - Neck Exam Neck Exam: Normal Inspection - Respiratory Exam Respiratory Exam: Clear to Ausculation Bilateral. absent: Rales, Rhonchi, Wheezes - Cardiovascular Exam Cardiovascular Exam: RRR, +S1, +S2. absent: Gallop, Rubs, Murmur - GI/Abdominal Exam GI & Abdominal Exam: Soft. absent: Distended, Guarding, Tenderness, Rebound - Extremities Exam Extremities Exam: Normal Inspection - Back Exam Back Exam: NORMAL INSPECTION - Neurological Exam Neurological Exam: Alert, Awake, Oriented x3 - Psychiatric Exam Psychiatric exam: Normal Affect, Normal Mood - Skin Skin Exam: Dry, Intact, Normal Color, Warm Assessment and Plan - Assessment and Plan (Free Text) Assessment: 72 yo F with PMH of HTN, HLD, DM2, CAD s/p stent presents with abdominal pain found to have gallstone pancreatitis. Plan: - Afebrile, no leukocytosis - BUN improving - Lipase on admission [id number] - CT abdomen showed acute pancreatitis, Mild CBD prominence. - US abdomen showed Cholelithiasis, no cholecystitis. CBD 8mm. - MRCP showed cholelithiasis, but no choledocolithiasis - Cont liquid diet as tolerated - NPO after midnight - Plan for possible lap [place] this Sunday DW Dr. Neri Patterson, PGY1
[2017-10-11 08:32] LABS: BILIRUBIN,DIRECT 0.8 mg/dL (0.0-0.4); BILIRUBIN,TOTAL 0.8 mg/dL (0.2-1.3); CALCIUM 8.7 mg/dL (8.4-10.5); MAGNESIUM 1.9 mg/dL (1.7-2.2); PHOSPHOROUS 3.6 mg/dL (2.5-4.5); POTASSIUM 3.8 mmol/L (3.6-5.0); TOTAL PROTEIN 7.8 g/dL (5.8-8.3)
--- NOTE | 2017-10-11 10:19 | CP.PCM.PCO ---
Physician Communication Note - Physician Communication Note Physician Communication Note: Meena Alcaraz 10:30 tomorrow
--- NOTE | 2017-10-11 10:43 | CARD ---
APPROVED REPORT EKG Measurement Heart [id number] <Conclusion> Normal sinus rhythm Normal ECG
--- NOTE | 2017-10-11 10:52 | PN ---
DATE: 10/11/2017 SUBJECTIVE: The patient is lying in bed. She states through a fire lieutenant that her abdominal pain has resolved. She tolerated clear liquid diet this morning. She denies any nausea or vomiting. MEDICATIONS: Her medications currently include hydralazine, aspirin, aztreonam, diphenhydramine, clonidine, docusate, hydromorphone, Flagyl, Fosamax, heparin, Humalog insulin, pantoprazole, acetaminophen, Zofran, sertraline and allopurinol. PHYSICAL EXAMINATION: GENERAL: A well-developed female lying in bed in no acute distress. VITAL SIGNS: Reveal temperature of 98.6, blood pressure of 170/88, and heart rate of 70. HEENT: Reveal sclerae to be white. Conjunctivae are pink. NECK: Supple. CHEST: Reveals lungs to be clear. HEART: Exam reveals regular rate and rhythm. GASTROINTESTINAL: Abdomen is soft and nontender. EXTREMITIES: Show no edema. LABORATORY DATA: Revealed white blood cell count of 9.1 and hemoglobin of 10.5. Chemistries revealed normal electrolytes, BUN of 21 and creatinine of 1.3. AST is 49, ALT is 58, amylase is down to 148, and lipase is down to 475. IMPRESSION: Gallstone pancreatitis. RECOMMENDATIONS: The patient will need cholecystectomy prior to discharge from the hospital, her pancreatitis appears to be resolving. Gary Worrell MD
--- NOTE | 2017-10-11 11:12 | CP.PCM.PN ---
Subjective - Date & Time of Evaluation Date of Evaluation: 10/11/17 Time of Evaluation: 07:00 - Subjective Subjective: Medicine note for Dr. Cutler Patient seen and examined at bedside. Patient resting comfortably in bed with no new complaints at this time. Patient has an appetite today and says she had some broth this morning and tolerated this well. Patient says she is not having regular BMs which she thinks is because she has been NPO. She is having less abdominal pain today and denies fever, chills, chest pain, SOB, N&V, diarrhea, LE pain, and LE swelling. Objective - Vital Signs/Intake and Output Vital Signs (last 24 hours): Temp Pulse Resp BP Pulse Ox 98.6 F 77 20 170/88 H 98 10/11/17 06:00 10/11/17 06:00 10/11/17 06:00 10/11/17 06:00 10/11/17 06:00 Intake and Output: 10/11/17 10/11/17 06:59 18:59 Intake Total 1470 Output Total 2 Balance 1468 - Medications Medications: Current Medications Acetaminophen (Tylenol 325mg Tab) 650 mg PO Q4 PRN PRN Reason: Fever >100.4 F Alendronate Sodium (Fosamax) 70 mg PO Q7D [facility] Last Admin: 10/10/17 06:52 Dose: 70 mg Allopurinol (Zyloprim) 100 mg PO BID [facility] Last Admin: 10/11/17 09:16 Dose: 100 mg Aspirin (Aspirin Chewable) 81 mg PO DAILY [facility] Last Admin: 10/11/17 09:16 Dose: 81 mg Clonidine HCl (Catapres Tts1 0.1 Mg/24 Hr) 1 patch TD Q7D@1000 [facility] Last Admin: 10/09/17 11:26 Dose: 1 patch Diphenhydramine HCl (Benadryl) 25 mg PO HS PRN PRN Reason: Insomnia Last Admin: 10/10/17 23:15 Dose: 25 mg Docusate Sodium (Colace) 100 mg PO BID [facility] Last Admin: 10/11/17 09:15 Dose: 100 mg Heparin Sodium (Porcine) (Heparin) 5,000 units SC Q8 FIDELINA PRN Reason: Protocol Last Admin: 10/11/17 05:58 Dose: 5,000 units Hydralazine HCl (Apresoline) 10 mg IVP Q6 PRN PRN Reason: FORSBP>=170&/ORDBP>=100MMHG Last Admin: 10/11/17 05:57 Dose: 10 mg Hydromorphone HCl (Dilaudid) 0.5 mg IVP Q4H PRN PRN Reason: Pain, moderate (4-7) Metronidazole (Flagyl) 500 mg in 100 mls @ 100 mls/hr IVPB Q8 FIDELINA PRN Reason: Protocol Last Admin: 10/11/17 05:58 Dose: 100 mls/hr Aztreonam (Azactam 1 Gm) 100 mls @ 100 mls/hr IVPB Q8 FIDELINA PRN Reason: Protocol Stop: 10/16/17 23:16 Last Admin: 10/11/17 05:11 Dose: 100 mls/hr Insulin Human Lispro (Humalog Med) 0 units SC ACHS FIDELINA PRN Reason: Protocol Last Admin: 10/11/17 08:08 Dose: Not Given Ondansetron HCl (Zofran Inj) 4 mg IVP Q4H PRN PRN Reason: Nausea/Vomiting Pantoprazole Sodium (Protonix Inj) 40 mg IVP Q12 [facility] Last Admin: 10/11/17 09:16 Dose: 40 mg Sertraline HCl (Zoloft) 100 mg PO DAILY [facility] Last Admin: 10/11/17 09:16 Dose: 100 mg - Labs Labs: 10/11/17 06:45 10/11/17 06:45 PT 11.4 SECONDS (9.4-12.5) 10/09/17 02:37 INR 1.04 (0.93-1.08) 10/09/17 02:37 APTT 27.5 Seconds (25.1-36.5) 10/09/17 02:37 - Constitutional Appears: Non-toxic, No Acute Distress - Head Exam Head Exam: NORMAL INSPECTION - Eye Exam Eye Exam: EOMI, Normal appearance - ENT Exam ENT Exam: Mucous Membranes Moist - Respiratory Exam Respiratory Exam: Clear to Ausculation Bilateral, NORMAL BREATHING PATTERN - Cardiovascular Exam Cardiovascular Exam: RRR, +S1, +S2 - GI/Abdominal Exam GI & Abdominal Exam: Soft, Normal Bowel Sounds. absent: Distended, Tenderness - Extremities Exam Extremities Exam: absent: Calf Tenderness - Neurological Exam Neurological Exam: Alert, Awake - Psychiatric Exam Psychiatric exam: Normal Affect, Normal Mood - Skin Skin Exam: Dry, Intact, Normal Color, Warm Assessment and Plan - Assessment and Plan (Free Text) Assessment: Acute pancreatitis secondary to cholelithiasis * CT abdomen: acute pancreatitis; no calcifications noted. Mild prominence of common bile duct/proximal pancreatic duct. Pulmonary nodules will require outpatient followup if high risk. IUD in place. * EKG: NSR at 69 bpm. 1st degree AV block. No acute changes. * Abdomen US: cholelithiasis with no signs of cholecystitis. Borderline biliary ductal dilatation (0.77cm diameter). * MRCP: colelithiasis, no stones in the CBD * Lipase: 74498, now 475 * Amylase: 1708, now 148 * Lipid panel: Trig 192, Chol 174, LDL 113, HDL 37 * Blood cultures negative x24h * MRSA negative * Procal 0.36 * Lactic Acid: 0.5 * Thyroid panel: Free T4 1.56, T4 8.6, TSH 2.68 * NPO * D5 & 1/2NS @100cc/h * ABX: Aztreonam & Flagyl * Dilaudid PRN pain and colace PRN constipation * Zofran PRN n/v * Tylenol PRN fever * Surgery consulted, recs appreciated * cholecystectomy Sunday10/12/17 * GI consulted, recs appreciated Hepatitis C * Hep panel: +Hep C Ab * f/u genotype, quant, viral load * Transaminitis - trending down LIANNA vs CKD * continue hydration and monitor I/O and Cr * avoid nephrotoxic drugs * UA: Protein 30, Blood trace, leukocyte esterase moderate, trace course granular casts Anemia * B12: 432 * Folate: 18 * Iron: 55 * Ferritin: 158 * TIBC: 357 * % Saturation: 15 * Retic count: 2.37 Hx CAD * continue ASA * EKG showed no acute changes * Lipid panel: Trig 192, Chol 174, LDL 113, HDL 37 * Troponin negative x1, CK 86, LDH 659 Hx DM2 * ISS * Accucheck ACHS * HbA1C: 6.7 Hx HTN * Dr. Bryant (cardio) consulted - recs appreciated * IV hydralazine and clonidine patch while NPO * Hold HCTZ, Diovan and Metoprolol because NPO Hx HLD * cont Lipitor, Fenofibrate * Lipid panel: Trig 192, Chol 174, LDL 113, HDL 37 Hx Depression * Zoloft 100mg PO QD Hx Osteoporosis * Fosamax 70 mg PO Q7D Prophylactic Measures * PTX/Heparin/SCDs/stockings/OOB
--- NOTE | 2017-10-11 13:18 | CP.PCM.PN ---
Subjective - Date & Time of Evaluation Date of Evaluation: 10/11/17 Time of Evaluation: 11:00 - Subjective Subjective: Comfortable on a chair, not in distress, afebrile, no abdominal pain currently, tolerating liquid diet. Objective - Vital Signs/Intake and Output Vital Signs (last 24 hours): Temp Pulse Resp BP Pulse Ox 98.6 F 77 20 170/88 H 98 10/11/17 06:00 10/11/17 06:00 10/11/17 06:00 10/11/17 06:00 10/11/17 06:00 Intake and Output: 10/11/17 10/11/17 06:59 18:59 Intake Total 1470 Output Total 2 Balance 1468 - Medications Medications: Current Medications Acetaminophen (Tylenol 325mg Tab) 650 mg PO Q4 PRN PRN Reason: Fever >100.4 F Alendronate Sodium (Fosamax) 70 mg PO Q7D [facility] Last Admin: 10/10/17 06:52 Dose: 70 mg Allopurinol (Zyloprim) 100 mg PO BID [facility] Last Admin: 10/11/17 09:16 Dose: 100 mg Aspirin (Aspirin Chewable) 81 mg PO DAILY [facility] Last Admin: 10/11/17 09:16 Dose: 81 mg Clonidine HCl (Catapres Tts1 0.1 Mg/24 Hr) 1 patch TD Q7D@1000 [facility] Last Admin: 10/09/17 11:26 Dose: 1 patch Diphenhydramine HCl (Benadryl) 25 mg PO HS PRN PRN Reason: Insomnia Last Admin: 10/10/17 23:15 Dose: 25 mg Docusate Sodium (Colace) 100 mg PO BID [facility] Last Admin: 10/11/17 09:15 Dose: 100 mg Heparin Sodium (Porcine) (Heparin) 5,000 units SC Q8 FIDELINA PRN Reason: Protocol Last Admin: 10/11/17 05:58 Dose: 5,000 units Hydralazine HCl (Apresoline) 10 mg IVP Q6 PRN PRN Reason: FORSBP>=170&/ORDBP>=100MMHG Last Admin: 10/11/17 05:57 Dose: 10 mg Hydromorphone HCl (Dilaudid) 0.5 mg IVP Q4H PRN PRN Reason: Pain, moderate (4-7) Metronidazole (Flagyl) 500 mg in 100 mls @ 100 mls/hr IVPB Q8 FIDELINA PRN Reason: Protocol Last Admin: 10/11/17 05:58 Dose: 100 mls/hr Aztreonam (Azactam 1 Gm) 100 mls @ 100 mls/hr IVPB Q8 FIDELINA PRN Reason: Protocol Stop: 10/16/17 23:16 Last Admin: 10/11/17 05:11 Dose: 100 mls/hr Insulin Human Lispro (Humalog Med) 0 units SC ACHS FIDELINA PRN Reason: Protocol Last Admin: 10/11/17 08:08 Dose: Not Given Ondansetron HCl (Zofran Inj) 4 mg IVP Q4H PRN PRN Reason: Nausea/Vomiting Pantoprazole Sodium (Protonix Inj) 40 mg IVP Q12 [facility] Last Admin: 10/11/17 09:16 Dose: 40 mg Sertraline HCl (Zoloft) 100 mg PO DAILY [facility] Last Admin: 10/11/17 09:16 Dose: 100 mg - Labs Labs: 10/11/17 06:45 10/11/17 06:45 PT 11.4 SECONDS (9.4-12.5) 10/09/17 02:37 INR 1.04 (0.93-1.08) 10/09/17 02:37 APTT 27.5 Seconds (25.1-36.5) 10/09/17 02:37 - Constitutional Appears: Non-toxic, No Acute Distress - Head Exam Head Exam: NORMAL INSPECTION - ENT Exam ENT Exam: Mucous Membranes Moist - Neck Exam Neck Exam: absent: Meningismus - Respiratory Exam Respiratory Exam: Decreased Breath Sounds - Cardiovascular Exam Cardiovascular Exam: +S1, +S2 - GI/Abdominal Exam GI & Abdominal Exam: Soft. absent: Tenderness Assessment and Plan - Assessment and Plan (Free Text) Plan: Assessment Systemic Inflammatory response syndrome probably from acute pancreatitis R/O cholecystitis HTN CAD S/P PCI dyslipidemia DM obesity with BMI 32 Plan continue Azactam and Flagyl day 2; blood cx are negative; reviewed CT A/P and MRCP (no stones in the CBD) - plan for cholecystectomy tomorrow will continue to monitor clinically and trend lipase levels (decreasing), WBC count (normalized)
[2017-10-11] MEDS ORDERED: DiphenhydrAMINE 50 mg/ml Inj IVP STA (22:15)
[2017-10-12] MEDS: metroNIDAZOLE IV 500 mg/100 ml 500 MG/100 ML BAG IVPB SCH ×3 (05:04→21:02)
[2017-10-12] MEDS: Aztreonam 1 Gm in NS 100mL 100 ML IVPB SCH ×3 (06:10→22:34)
[2017-10-12 07:09] LABS: HEMATOCRIT 32.6 % (36.0-48.0); MEAN CELL VOLUME 94.5 fl (80.0-105.0); MEAN CORPUSCULAR HEMOGLOBIN 29.9 pg (25.0-35.0); MEAN CORPUSCULAR HGB CONC 31.6 g/dl (31.0-37.0); MEAN PLATELET VOLUME 10.4 fl (7.0-11.0); RED CELL DISTRIBUTION WIDTH 14.2 % (11.5-14.5); WHITE BLOOD COUNT 8.5 10^3/ul (4.5-11.0)
[2017-10-12 07:19] LABS: INR 1.17 (0.93-1.08); PARTIAL THROMBOPLASTIN TIME 29.1 Seconds (25.1-36.5)
[2017-10-12] MEDS: Insulin Lispro (humaLOG) MEDIUM Coverage SC SCH ×4 (08:22→22:31)
[2017-10-12 08:34] LABS: BILIRUBIN,DIRECT 0.8 mg/dL (0.0-0.4); BILIRUBIN,TOTAL 0.8 mg/dL (0.2-1.3); CALCIUM 8.3 mg/dL (8.4-10.5); MAGNESIUM 1.9 mg/dL (1.7-2.2); PHOSPHOROUS 3.6 mg/dL (2.5-4.5); POTASSIUM 4.2 mmol/L (3.6-5.0); TOTAL PROTEIN 7.5 g/dL (5.8-8.3)
[2017-10-12] MEDS ORDERED: Bupivacaine 0.5% Inj(30mL) ONE (09:40)
[2017-10-12] MEDS ORDERED: Iohexol 240 (50 ml) ONE (09:40)
--- NOTE | 2017-10-12 10:27 | PN ---
DATE: 10/12/2017 SUBJECTIVE: The patient is lying in bed. She is scheduled for laparoscopic cholecystectomy today. She had one set episode of vomiting last night. She denies any abdominal pain, nausea or vomiting this morning. MEDICATIONS: Include hydralazine, aspirin, aztreonam, Benadryl, clonidine, docusate, Dilaudid p.r.n. and Flagyl 500 IV q 8 h., Fosamax, subcu heparin, Humalog insulin, pantoprazole, acetaminophen, Zofran as well as allopurinol and Zoloft 100 mg once a day. PHYSICAL EXAMINATION: VITAL SIGNS: Reveal temperature of 100.9, blood pressure 189/87, heart rate 113. HEENT: Reveal sclerae to be white. Conjunctivae are pink. NECK: Supple. CHEST: Reveal lungs to be clear. HEART: Exam reveals a regular rate and rhythm. ABDOMEN: Soft, nontender. No mass. EXTREMITIES: Show no edema. LABORATORY DATA: Reveal BUN 16, creatinine 1.3, AST 53, ALT 50, alkaline phosphatase of 79, amylase of 95, lipase of 383. CBC reveals white blood cell count 8.5, hemoglobin 10.3, platelet count 259,000, hepatitis C antibody is noted to be positive. HIV antibody is negative. IMPRESSION: 1. Gallstone pancreatitis. 2. Hepatitis C antibody positivity. 3. Hypertension. 4. Diabetes mellitus. RECOMMENDATIONS: 1. The patient is to have laparoscopic cholecystectomy today. 2. Check hepatitis C RNA quantitative. Gary Worrell MD
[2017-10-12] MEDS ORDERED: Propofol 10 mg/ml Inj (20 ML) ONE (10:38)
[2017-10-12] MEDS ORDERED: Midazolam 2 MG/2 ML VIAL ONE (10:38)
[2017-10-12] MEDS ORDERED: Rocuronium 10 mg/ml (5 ml) ONE (10:40)
--- NOTE | 2017-10-12 10:52 | RAD ---
HISTORY: pre-op w/ fever COMPARISON: 10/09/2017 FINDINGS: LUNGS: The lungs are well inflated and clear. PLEURA: No significant pleural effusion identified, no pneumothorax apparent. CARDIOVASCULAR: Normal. OSSEOUS STRUCTURES: No significant abnormalities. VISUALIZED UPPER ABDOMEN: Normal. OTHER FINDINGS: There is stable elevation of the right middle. IMPRESSION: No acute findings.
[2017-10-12] MEDS ORDERED: Neostigmine Methylsulfate 3mg/3ml Syringe IV ONE (12:42)
[2017-10-12] MEDS ORDERED: Desflurane Inhalation Anesthetic Liq (240 ml) ONE (12:57)
--- NOTE | 2017-10-12 13:35 | PCM.SURG1 ---
Surgeon's Initial Post Op Note - Surgeon's Notes Surgeon: Dr. He Energy Conservation Technician: Dr. Martinez PGY2, PGY1, Diaz Bradley OMS4 Type of Anesthesia: General Endo Pre-Operative Diagnosis: Gallstone pancreatitis Operative Findings: see op note Post-Operative Diagnosis: as above Operation Performed: Laparosopic Cholecystectomy Specimen/Specimens Removed: gallbladder w/ stones Estimated Blood Loss: EBL {In ML}: 80 Blood Products Given: N/A Drains Used: Neo Date of Surgery/Procedure: 10/12/17 Time of Surgery/Procedure: 12:30
--- NOTE | 2017-10-12 14:40 | CP.PCM.PN ---
Subjective - Date & Time of Evaluation Date of Evaluation: 10/12/17 Time of Evaluation: 07:45 - Subjective Subjective: Patient seen and examined at bedside. Patient resting comfortably in bed with no new complaints at this time. I spoke with her and her family with her permission about the IUD seen on CT. She said she will follow up with an ObGyn for removal. Patient is on her way to the OR for lap [facility] today. Objective - Vital Signs/Intake and Output Vital Signs (last 24 hours): Temp Pulse Resp BP Pulse Ox 99 F 85 18 102/48 L 95 10/12/17 14:25 10/12/17 14:25 10/12/17 14:25 10/12/17 14:25 10/12/17 14:25 Intake and Output: 10/12/17 10/12/17 06:59 18:59 Intake Total 400 Balance 400 - Medications Medications: Current Medications Acetaminophen (Tylenol 325mg Tab) 650 mg PO Q4 PRN PRN Reason: Fever >100.4 F Alendronate Sodium (Fosamax) 70 mg PO Q7D [facility] Last Admin: 10/10/17 06:52 Dose: 70 mg Allopurinol (Zyloprim) 100 mg PO BID [facility] Last Admin: 10/12/17 11:27 Dose: Not Given Aspirin (Aspirin Chewable) 81 mg PO DAILY [facility] Last Admin: 10/12/17 11:25 Dose: Not Given Clonidine HCl (Catapres Tts1 0.1 Mg/24 Hr) 1 patch TD Q7D@1000 [facility] Last Admin: 10/09/17 11:26 Dose: 1 patch Diphenhydramine HCl (Benadryl) 25 mg PO HS PRN PRN Reason: Insomnia Last Admin: 10/10/17 23:15 Dose: 25 mg Docusate Sodium (Colace) 100 mg PO BID [facility] Last Admin: 10/12/17 11:26 Dose: Not Given Heparin Sodium (Porcine) (Heparin) 5,000 units SC Q8 FIDELINA PRN Reason: Protocol Last Admin: 10/11/17 14:37 Dose: 5,000 units Hydralazine HCl (Apresoline) 10 mg IVP Q6 PRN PRN Reason: FORSBP>=170&/ORDBP>=100MMHG Last Admin: 10/11/17 20:16 Dose: 10 mg Hydromorphone HCl (Dilaudid) 0.5 mg IVP Q4H PRN PRN Reason: Pain, moderate (4-7) Metronidazole (Flagyl) 500 mg in 100 mls @ 100 mls/hr IVPB Q8 FIDELINA PRN Reason: Protocol Last Admin: 10/12/17 05:04 Dose: 100 mls/hr Aztreonam (Azactam 1 Gm) 100 mls @ 100 mls/hr IVPB Q8 FIDELINA PRN Reason: Protocol Stop: 10/16/17 23:16 Last Admin: 10/12/17 06:10 Dose: 100 mls/hr Insulin Human Lispro (Humalog Med) 0 units SC ACHS FIDELINA PRN Reason: Protocol Last Admin: 10/12/17 11:57 Dose: Not Given Ondansetron HCl (Zofran Inj) 4 mg IVP Q4H PRN PRN Reason: Nausea/Vomiting Last Admin: 10/11/17 22:04 Dose: 4 mg Pantoprazole Sodium (Protonix Inj) 40 mg IVP Q12 [facility] Last Admin: 10/11/17 21:03 Dose: 40 mg Sertraline HCl (Zoloft) 100 mg PO DAILY [facility] Last Admin: 10/12/17 11:26 Dose: Not Given - Labs Labs: 10/12/17 06:20 10/12/17 06:20 PT 12.9 SECONDS (9.4-12.5) H 10/12/17 06:20 INR 1.17 (0.93-1.08) H 10/12/17 06:20 APTT 29.1 Seconds (25.1-36.5) 10/12/17 06:20 - Additional Findings Additional findings: - Constitutional Appears: Non-toxic, No Acute Distress - Head Exam Head Exam: NORMAL INSPECTION - Eye Exam Eye Exam: EOMI, Normal appearance - ENT Exam ENT Exam: Mucous Membranes Moist - Respiratory Exam Respiratory Exam: Clear to Ausculation Bilateral, NORMAL BREATHING PATTERN - Cardiovascular Exam Cardiovascular Exam: RRR, +S1, +S2 - GI/Abdominal Exam GI & Abdominal Exam: Soft, Normal Bowel Sounds. absent: Distended, Tenderness - Extremities Exam Extremities Exam: absent: Calf Tenderness - Neurological Exam Neurological Exam: Alert, Awake - Psychiatric Exam Psychiatric exam: Normal Affect, Normal Mood - Skin Skin Exam: Dry, Intact, Normal Color, Warm Assessment and Plan - Assessment and Plan (Free Text) Assessment: Acute pancreatitis secondary to cholelithiasis * CT abdomen: acute pancreatitis; no calcifications noted. Mild prominence of common bile duct/proximal pancreatic duct. Pulmonary nodules will require outpatient followup if high risk. IUD in place. * EKG: NSR at 69 bpm. 1st degree AV block. No acute changes. * Abdomen US: cholelithiasis with no signs of cholecystitis. Borderline biliary ductal dilatation (0.77cm diameter). * MRCP: colelithiasis, no stones in the CBD * Lipase: 46926, now 475 * Amylase: 1708, now 148 * Lipid panel: Trig 192, Chol 174, LDL 113, HDL 37 * Blood cultures negative x24h * MRSA negative * Procal 0.36 * Lactic Acid: 0.5 * Thyroid panel: Free T4 1.56, T4 8.6, TSH 2.68 * NPO * D5 & 1/2NS @100cc/h * ABX: Aztreonam & Flagyl * Dilaudid PRN pain and colace PRN constipation * Zofran PRN n/v * Tylenol PRN fever * Surgery consulted, recs appreciated * cholecystectomy Sunday10/12/17 * GI consulted, recs appreciated Hepatitis C * Hep panel: +Hep C Ab * f/u genotype * HCV quant - not detected * viral load - not detected * Transaminitis - trending down LIANNA vs CKD * continue hydration and monitor I/O and Cr * avoid nephrotoxic drugs * UA: Protein 30, Blood trace, leukocyte esterase moderate, trace course granular casts Anemia * B12: 432 * Folate: 18 * Iron: 55 * Ferritin: 158 * TIBC: 357 * % Saturation: 15 * Retic count: 2.37 Hx CAD * continue ASA * EKG showed no acute changes * Lipid panel: Trig 192, Chol 174, LDL 113, HDL 37 * Troponin negative x1, CK 86, LDH 659 Hx DM2 * ISS * Accucheck ACHS * HbA1C: 6.7 Hx HTN * Dr. Bryant (cardio) consulted - recs appreciated * IV hydralazine and clonidine patch while NPO * Hold HCTZ, Diovan and Metoprolol because NPO Hx HLD * cont Lipitor, Fenofibrate * Lipid panel: Trig 192, Chol 174, LDL 113, HDL 37 Hx Depression * Zoloft 100mg PO QD Hx Osteoporosis * Fosamax 70 mg PO Q7D Prophylactic Measures * PTX/Heparin/SCDs/stockings/OOB
[2017-10-12] MEDS: HYDROmorphone 0.5 mg/0.5 ml ISec IVP PRN (15:52)
[2017-10-12] MEDS ORDERED: Dextrose 5%/0.45% NS 1,000 ML IV SCH (17:00)
--- NOTE | 2017-10-12 17:41 | CP.PCM.PN ---
Subjective - Date & Time of Evaluation Date of Evaluation: 10/12/17 Time of Evaluation: 09:00 - Subjective Subjective: Patient is for surgery today on the gallbladder, no fevers overnight, no nausea. Objective - Vital Signs/Intake and Output Vital Signs (last 24 hours): Temp Pulse Resp BP Pulse Ox 99.7 F H 90 19 141/61 93 L 10/12/17 06:00 10/12/17 06:00 10/12/17 06:00 10/12/17 06:00 10/12/17 06:00 Intake and Output: 10/12/17 10/12/17 06:59 18:59 Intake Total 400 Balance 400 - Medications Medications: Current Medications Acetaminophen (Tylenol 325mg Tab) 650 mg PO Q4 PRN PRN Reason: Fever >100.4 F Alendronate Sodium (Fosamax) 70 mg PO Q7D [facility] Last Admin: 10/10/17 06:52 Dose: 70 mg Allopurinol (Zyloprim) 100 mg PO BID [facility] Last Admin: 10/11/17 17:20 Dose: 100 mg Aspirin (Aspirin Chewable) 81 mg PO DAILY [facility] Last Admin: 10/11/17 09:16 Dose: 81 mg Clonidine HCl (Catapres Tts1 0.1 Mg/24 Hr) 1 patch TD Q7D@1000 [facility] Last Admin: 10/09/17 11:26 Dose: 1 patch Diphenhydramine HCl (Benadryl) 25 mg PO HS PRN PRN Reason: Insomnia Last Admin: 10/10/17 23:15 Dose: 25 mg Docusate Sodium (Colace) 100 mg PO BID [facility] Last Admin: 10/11/17 17:21 Dose: 100 mg Heparin Sodium (Porcine) (Heparin) 5,000 units SC Q8 FIDELINA PRN Reason: Protocol Last Admin: 10/11/17 14:37 Dose: 5,000 units Hydralazine HCl (Apresoline) 10 mg IVP Q6 PRN PRN Reason: FORSBP>=170&/ORDBP>=100MMHG Last Admin: 10/11/17 20:16 Dose: 10 mg Hydromorphone HCl (Dilaudid) 0.5 mg IVP Q4H PRN PRN Reason: Pain, moderate (4-7) Metronidazole (Flagyl) 500 mg in 100 mls @ 100 mls/hr IVPB Q8 FIDELINA PRN Reason: Protocol Last Admin: 10/12/17 05:04 Dose: 100 mls/hr Aztreonam (Azactam 1 Gm) 100 mls @ 100 mls/hr IVPB Q8 FIDELINA PRN Reason: Protocol Stop: 10/16/17 23:16 Last Admin: 10/12/17 06:10 Dose: 100 mls/hr Insulin Human Lispro (Humalog Med) 0 units SC ACHS FIDELINA PRN Reason: Protocol Last Admin: 10/12/17 08:22 Dose: Not Given Ondansetron HCl (Zofran Inj) 4 mg IVP Q4H PRN PRN Reason: Nausea/Vomiting Last Admin: 10/11/17 22:04 Dose: 4 mg Pantoprazole Sodium (Protonix Inj) 40 mg IVP Q12 [facility] Last Admin: 10/11/17 21:03 Dose: 40 mg Sertraline HCl (Zoloft) 100 mg PO DAILY [facility] Last Admin: 10/11/17 09:16 Dose: 100 mg - Labs Labs: 10/12/17 06:20 10/12/17 06:20 PT 12.9 SECONDS (9.4-12.5) H 10/12/17 06:20 INR 1.17 (0.93-1.08) H 10/12/17 06:20 APTT 29.1 Seconds (25.1-36.5) 10/12/17 06:20 - Constitutional Appears: Non-toxic - Head Exam Head Exam: NORMAL INSPECTION - ENT Exam ENT Exam: Mucous Membranes Moist - Neck Exam Neck Exam: absent: Meningismus - Respiratory Exam Respiratory Exam: Decreased Breath Sounds - Cardiovascular Exam Cardiovascular Exam: +S1, +S2 - GI/Abdominal Exam GI & Abdominal Exam: Soft. absent: Tenderness Assessment and Plan - Assessment and Plan (Free Text) Plan: Assessment Systemic Inflammatory response syndrome probably from acute pancreatitis R/O cholecystitis HTN CAD S/P PCI dyslipidemia DM obesity with BMI 32 Plan on Azactam and Flagyl day 3; blood cx are negative; reviewed CT A/P and MRCP ( no stones in the CBD) - plan for cholecystectomy today and follow up results will continue to monitor clinically and trend lipase levels (decreasing), WBC count (normalized)
[2017-10-12] MEDS: Dextrose 5%/0.45% NS 1,000 ML IV SCH (18:23)
[2017-10-13] MEDS: Dextrose 5%/0.45% NS 1,000 ML IV SCH ×2 (03:23→06:02)
[2017-10-13] MEDS: metroNIDAZOLE IV 500 mg/100 ml 500 MG/100 ML BAG IVPB SCH ×3 (05:03→22:06)
[2017-10-13] MEDS: Aztreonam 1 Gm in NS 100mL 100 ML IVPB SCH ×3 (05:57→23:37)
[2017-10-13] MEDS: HYDROmorphone 0.5 mg/0.5 ml ISec IVP PRN (06:14)
[2017-10-13 07:34] LABS: HEMATOCRIT 31.5 % (36.0-48.0); MEAN CELL VOLUME 98.7 fl (80.0-105.0); MEAN CORPUSCULAR HEMOGLOBIN 29.2 pg (25.0-35.0); MEAN CORPUSCULAR HGB CONC 29.5 g/dl (31.0-37.0); MEAN PLATELET VOLUME 10.7 fl (7.0-11.0); RED CELL DISTRIBUTION WIDTH 14.6 % (11.5-14.5); WHITE BLOOD COUNT 9.2 10^3/ul (4.5-11.0)
[2017-10-13 08:00] LABS: BILIRUBIN,DIRECT 0.7 mg/dL (0.0-0.4); BILIRUBIN,TOTAL 0.7 mg/dL (0.2-1.3); CALCIUM 7.8 mg/dL (8.4-10.5); MAGNESIUM 1.7 mg/dL (1.7-2.2); PHOSPHOROUS 4.5 mg/dL (2.5-4.5); POTASSIUM 4.5 mmol/L (3.6-5.0); TOTAL PROTEIN 7.1 g/dL (5.8-8.3)
[2017-10-13] MEDS: Insulin Lispro (humaLOG) MEDIUM Coverage SC SCH ×3 (08:37→17:54)
--- NOTE | 2017-10-13 08:37 | CP.PCM.PN ---
Subjective - Date & Time of Evaluation Date of Evaluation: 10/13/17 Time of Evaluation: 06:30 - Subjective Subjective: General Surgery- Dr. He Patient seen and examined at bedside this AM. Afebrile. Had no urine overnight. Straight cath had 500cc in AM. Patient has appetite. marissa-incisonal pain. Denies fevers, chills, chest pain, shortness of breath, nausea, vomiting Neo 50cc serosang overnight Objective - Vital Signs/Intake and Output Vital Signs (last 24 hours): Temp Pulse Resp BP Pulse Ox 99.7 F H 81 20 138/66 96 10/13/17 06:00 10/13/17 06:00 10/13/17 06:00 10/13/17 06:00 10/13/17 06:00 Intake and Output: 10/13/17 10/13/17 06:59 18:59 Intake Total 120 Output Total 0 Balance 120 - Medications Medications: Current Medications Acetaminophen (Tylenol 325mg Tab) 650 mg PO Q4 PRN PRN Reason: Fever >100.4 F Alendronate Sodium (Fosamax) 70 mg PO Q7D [facility] Last Admin: 10/10/17 06:52 Dose: 70 mg Allopurinol (Zyloprim) 100 mg PO BID [facility] Last Admin: 10/12/17 17:07 Dose: Not Given Aspirin (Aspirin Chewable) 81 mg PO DAILY [facility] Last Admin: 10/12/17 11:25 Dose: Not Given Clonidine HCl (Catapres Tts1 0.1 Mg/24 Hr) 1 patch TD Q7D@1000 [facility] Last Admin: 10/09/17 11:26 Dose: 1 patch Diphenhydramine HCl (Benadryl) 25 mg PO HS PRN PRN Reason: Insomnia Last Admin: 10/10/17 23:15 Dose: 25 mg Docusate Sodium (Colace) 100 mg PO BID [facility] Last Admin: 10/12/17 17:06 Dose: Not Given Heparin Sodium (Porcine) (Heparin) 5,000 units SC Q8 [facility] PRN Reason: Protocol Last Admin: 10/11/17 14:37 Dose: 5,000 units Hydralazine HCl (Apresoline) 10 mg IVP Q6 PRN PRN Reason: FORSBP>=170&/ORDBP>=100MMHG Last Admin: 10/11/17 20:16 Dose: 10 mg Hydromorphone HCl (Dilaudid) 0.5 mg IVP Q4H PRN PRN Reason: Pain, moderate (4-7) Last Admin: 10/13/17 06:14 Dose: 0.5 mg Metronidazole (Flagyl) 500 mg in 100 mls @ 100 mls/hr IVPB Q8 [facility]IDELINA PRN Reason: Protocol Last Admin: 10/13/17 05:03 Dose: 100 mls/hr Aztreonam (Azactam 1 Gm) 100 mls @ 100 mls/hr IVPB Q8 [facility]ELINA PRN Reason: Protocol Stop: 10/16/17 23:16 Last Admin: 10/13/17 05:57 Dose: 100 mls/hr Sodium Chloride (Sodium Chloride 0.9%) 1,000 mls @ 125 mls/hr IV .Q8H [facility] Insulin Human Lispro (Humalog Med) 0 units SC ACHS [facility]EL[facility] PRN Reason: Protocol Last Admin: 10/12/17 22:31 Dose: Not Given Ondansetron HCl (Zofran Inj) 4 mg IVP Q4H PRN PRN Reason: Nausea/Vomiting Last Admin: 10/11/17 22:04 Dose: 4 mg Pantoprazole Sodium (Protonix Inj) 40 mg IVP Q12 [facility] Last Admin: 10/12/17 21:02 Dose: 40 mg Sertraline HCl (Zoloft) 100 mg PO DAILY [facility] Last Admin: 10/12/17 11:26 Dose: Not Given - Labs Labs: 10/13/17 06:00 10/13/17 06:00 PT 12.9 SECONDS (9.4-12.5) H 10/12/17 06:20 INR 1.17 (0.93-1.08) H 10/12/17 06:20 APTT 29.1 Seconds (25.1-36.5) 10/12/17 06:20 - Constitutional Appears: Non-toxic, No Acute Distress - Head Exam Head Exam: ATRAUMATIC - Eye Exam Eye Exam: absent: Scleral icterus - Respiratory Exam Respiratory Exam: NORMAL BREATHING PATTERN. absent: Accessory Muscle Use, Chest Wall Tenderness - Cardiovascular Exam Cardiovascular Exam: +S1, +S2. absent: Bradycardia, Tachycardia - GI/Abdominal Exam GI & Abdominal Exam: Distended, Guarding, Soft, Tenderness. absent: Firm, Rigid , Rebound Additional comments: marissa-incisonal pain. appropriately tender around incision Neo 50cc serosang, more sanguineous than serous - Extremities Exam Extremities Exam: absent: Calf Tenderness - Neurological Exam Neurological Exam: Alert, Awake, Oriented x3 - Skin Skin Exam: Intact, Warm Assessment and Plan - Assessment and Plan (Free Text) Assessment: 72F s/p laparoscopic cholecystectomy POD#1 Plan: - advance diet to clears - OOB/IC - IVF - monitor urine output - H/H stable, will follow labs - pain control and anti-emetic PRN - GI ppx - further recs per Dr. He surgical attending Sameer Cota PGY1
[2017-10-13] MEDS: Sodium Chloride 0.9% 1,000 ML IV SCH ×2 (10:18→18:15)
[2017-10-13] MEDS ORDERED: Sodium Chloride 0.9% 500 ML IV SCH (17:45)
[2017-10-13 19:57] LABS: HEPATITIS C VIRAL RNA QUAL Not detected
--- NOTE | 2017-10-13 20:29 | CP.PCM.PCO ---
Physician Communication Note - Physician Communication Note Physician Communication Note: PO1:Temp 102-OK Liquids/coughing/ambulation/w/u in progress
--- NOTE | 2017-10-13 20:52 | PN ---
DATE: 10/13/2017 SUBJECTIVE: The patient is in bed, in no acute distress, nontoxic. The patient was seen early this morning in room 374. PHYSICAL EXAMINATION: VITAL SIGNS: Temperature of 102, blood pressure is 130/70, respiratory rate of 18, heart rate of 78. HEENT: Unremarkable. NECK: Supple. LUNGS: Decreased breath sounds. HEART: Normal S1, S2. ABDOMEN: Soft, nontender. LABORATORY DATA: Reveals a white count of 9.2, hemoglobin of 9. Chemistries reveal a BUN of 22, creatinine of 2.2, procalcitonin 0.36. Urinalysis is noted. Hepatitis C is reactive; however, the PCR is not detectable. HIV is negative. Microbiology reveals the blood cultures are negative. MRSA is not detected. ASSESSMENT AND PLAN: This is a 72-year-old female seen earlier this morning in 374, bed 2. The patient's [id number] was present at bedside, systemic inflammatory response syndrome, hypertension, coronary artery disease, history percutaneous coronary intervention, dyslipidemia, diabetes, obesity, on aztreonam and Flagyl. Dr. Hull's note from yesterday, operative note with a diagnosis of gallstone, pancreatitis, his laparoscopic cholecystectomy is reviewed. We will follow closely with you. The patient with acute kidney injury on top of chronic renal disease. We will follow with fever curves cultures. Vick Sinclair MD
--- NOTE | 2017-10-13 21:07 | PN ---
DATE: 10/13/2017 SUBJECTIVE: The patient is seen lying in the bed in room 374, bed 2. The patient is complaining of abdominal pain. Overnight nurse's notes were reviewed. The patient required pain medication for abdominal pain. The patient has difficulty urination. OBJECTIVE: VITAL SIGNS: T-max 102.1 and 100.9. Heart rate 77, 82, and 78. Blood pressure in the last 24 hours 98/52, 104/56, 100/49, 93/47, 102/48, 128/58, 138/68, and 138/72, respirations 17, and O2 sat is 96%. INTAKE AND OUTPUT: Not recorded correctly. HEENT: Head examination; normocephalic and atraumatic. HEENT examination shows pinkish pale conjunctivae. Dry oral mucosa. NECK: No neck rigidity. CHEST: Kyphosis. LUNGS: Shows occasional rhonchi in upper lung field. CARDIOVASCULAR: S1 and S2, regular rhythm. ABDOMEN: Protuberant. Positive right-sided LISA drain. Positive surgical scar, diffuse voluntary guarding. Positive diffuse tenderness. Decreased bowel sounds. Positive suprapubic tenderness and dullness. GENITALIA: Female. RECTAL: Deferred. EXTREMITIES: Shows positive SCDs with missing PADDY stockings despite my orders. VASCULAR: Palpable pulses. MUSCULOSKELETAL: Shows a body mass index of 32. NEUROLOGIC: The patient is alert, awake, and responsive. Gait examination is not tested. DIAGNOSTIC DATA: On 10/13/2017; WBC 9.2, hemoglobin/hematocrit 9.3 and 31.5, and platelet 248. Sodium 142, potassium 4.5, chloride 110, CO2 of 22, anion gap 14, BUN 22, creatinine has gone up from 1.3 to 2.2, GFR 26, and glucose 131. Hemoglobin A1c 6.7, calcium 7.8, and magnesium 1.7. AST is gone up to 165 and ALT is gone up to 79.. The patient's hepatitis C RNA none detected. Hepatitis C RNA quantitative none detected. Hepatitis C PCR log none detected. HIV negative. Blood cultures and MRSA cultures negative. IMPRESSION: 1. Status post laparoscopic cholecystectomy with intraoperative cholangiogram postoperative day 1. 2. Gallstone pancreatitis. 3. Postoperative fever. 4. Transient hypotension. 5. Acute kidney injury. 6. Questionable urinary retention versus voiding dysfunction. 7. Leukocytosis. 8. Normocytic anemia. 9. Elevated reticulocyte count. 10. Acute kidney injury with underlying chronic kidney disease stage 3. 11. Type 2 diabetes mellitus, well controlled with hemoglobin A1c of 6.7. 12. Transient hypotension. 13. Hyperuricemia. 14. Transaminitis. 15. Gallstone pancreatitis. 16. Proteinuria, microscopic hematuria, pyuria, and bacteriuria. 17. Reactive hepatitis C antibody with a negative hepatitis C RNA quantitative and qualitative. 18. Systemic inflammatory response syndrome secondary to acute pancreatitis and gallstone pancreatitis and cholelithiasis. 19. Obesity with elevated body mass index. 20. History of depression, history of osteoporosis, history of type 2 diabetes mellitus, history of hypothyroidism, history of hyperuricemia, history of dyslipidemia, and history of hypertension. PLAN: At this time, the patient has been ordered serial labs. Repeat blood cultures and urine cultures ordered. The patient has been ordered Nair catheter placement. Current consultations with infectious Disease, Cardiology, and Nephrology consultation requested today. Surgery and Gastroenterology. CURRENT MEDICATIONS: 1. Hydralazine 10 mg IV q.6 hours p.r.n. 2. Aspirin 81 mg p.o. daily. 3. Azactam 1 g IV q.8 hours. 4. Clonidine patch 0.1 mg weekly. 5. Colace 100 mg twice a day. 6. Dilaudid 0.5 mg IV q.4 hours p.r.n. 7. Flagyl 500 IV q.8 hours. 8. Fosamax 70 mg weekly. 9. Heparin 5000 subcutaneously q.8 hours. 10. Medium dose Humalog sliding scale a.c. and at bedtime. 11. Protonix 40 IV q.12 hours. 12. IV fluid 0.9 normal saline at 125 mL an hour. 13. Tylenol p.r.n. for fever. 14. Zofran 4 mg IV q.4 hours p.r.n. 15. Zoloft 100 mg daily. 16. Allopurinol 100 mg twice a day. Chest x-ray PA and lateral ordered. Incentive spirometry ordered. The patient is ordered liquid diet by Dr. He. The patient has been ordered out of bed, SCDs, PADDY stockings, and physical therapy has been ordered. The patient's condition and diagnosis was updated to the patient's [id number] who was trying to feed the patient today.. At present, the patient's further management will be dependent upon the patient's clinical condition, hemodynamic status, and as per the patient response to therapeutic intervention, as per the patient's diagnostic test results, and as per recommendation by all the physician involved in the care of the patient. Dictated and electronically signed, not read. Cecil Cutler MD
--- NOTE | 2017-10-13 21:27 | PN ---
DATE OF SERVICE: 10/12/2017 LOCATION: The patient was seen in room 374, bed 1. SUBJECTIVE: Overnight nurse's notes were reviewed. The patient was on her way to the operating room. Overnight nurse's notes stated that the patient slept well. No adverse event documented. OBJECTIVE: VITAL SIGNS: T-max 99.7. Heart rate is 75, 86, 90 beats per minute. Blood pressure over the last 24 hours 141/75, 141/61. Respirations 16-18. O2 sat is 95%, 96% and 94%. GENERAL: The patient is seen lying in the bed. HEENT: Head examination normocephalic, atraumatic. HEENT examination shows pinkish pale conjunctivae. Dry oral mucosa. No neck rigidity. CHEST: Kyphosis. LUNGS: Shows no rales, crackles or wheezing. CARDIOVASCULAR: S1, S2, regular rhythm. Questionable soft systolic murmur, left sternal border, left second intercostal space. No rales, crackles or wheezing. ABDOMEN: Protuberant. Significantly decreased epigastric and right upper quadrant tenderness. No rebound tenderness. No costovertebral angle tenderness. GENITALIA: Female. RECTAL: Deferred. EXTREMITY: Shows no pitting, no calf tenderness, no Homans' sign. MUSCULOSKELETAL: Shows a body mass index of 32.4. NEUROLOGIC: Gait examination not tested. DIAGNOSTICS: On 10/12/2017; WBC 8.5, hemoglobin/hematocrit 10.3 and 32.6, platelet 259. PT/PTT 12.9/29.1. Sodium 143, potassium 4.2, chloride 110, CO2 of 22, anion gap 16, BUN 16, creatinine 1.3, GFR 40, glucose 80, calcium 8.3, phosphorus 3.6, magnesium 0.9, direct bili 0.8, AST 53, ALT is normal at 50. Amylase is down to 95, lipase is down to 383 from a peak lipase of 51,411. The patient's hepatitis C RNA PCR non-detected. HIV 1 and 2 negative. MRSA nares non-detected. Blood cultures non-detected. Blood type not ordered. The patient's chest x-ray was done on 10/12/2017, which was negative. IMPRESSION AND PLAN: 1. Acute gallstone pancreatitis. 2. Systemic inflammatory response syndrome. 3. Sinus bradycardia. 4. Hypertension. 5. Morbid obesity with elevated body mass index of greater than 32. 6. Normocytic anemia. 7. Leukocytosis. 8. Elevated reticulocyte count. 9. Resolving acute kidney injury with underlying chronic kidney disease stage III. 10. Transaminitis. 11. Type 2 diabetes mellitus, uncontrolled with hemoglobin A1c of 6.7. 12. Acute gallstone pancreatitis and gallstone hepatitis. 13. Proteinuria. 14. Microscopic hematuria. 15. Pyuria, bacteriuria. 16. Reactive hepatitis C antibody. 17. Systemic inflammatory response syndrome secondary to acute pancreatitis and cholelithiasis. Plan at this time, the patient is on her way for cholecystectomy. The patient will be followed up postoperatively. The patient's current consultation is Surgery, next Gastroenterology, next Infectious Disease, next Gastroenterology. The patient's current medications are hydralazine 10 mg IV q.6 p.r.n., aspirin 81 mg p.o. daily, Azactam 1 g IV q.8, clonidine 0.1 mg patch weekly, Colace 100 mg twice a day, Dilaudid 0.5 mg IV q.4 p.r.n., Flagyl 500 IV q.8, Fosamax 70 mg weekly, heparin 5000 subcu q.8, Humalog medium dose sliding scale coverage a.c. and h.s., Protonix 40 mg IV q.12, Tylenol p.r.n., Zofran 4 mg IV q.4 p.r.n., Zoloft 100 mg daily, and allopurinol 100 mg twice a day. At present, the patient's further management will be dependent upon the patient's clinical condition, hemodynamic status and as per the patient response to therapeutic intervention as per the surgical outcomes. Dictated and electronically signed, not read. Signing off, Cecil Cutler MD
[2017-10-14] MEDS: Insulin Lispro (humaLOG) MEDIUM Coverage SC SCH ×4 (00:13→17:06)
[2017-10-14] MEDS: Sodium Chloride 0.9% 1,000 ML IV SCH ×2 (05:13→05:14)
[2017-10-14] MEDS: Aztreonam 1 Gm in NS 100mL 100 ML IVPB SCH (05:14)
[2017-10-14] MEDS: metroNIDAZOLE IV 500 mg/100 ml 500 MG/100 ML BAG IVPB SCH (06:47)
[2017-10-14 07:19] LABS: MEAN CELL VOLUME 99.7 fl (80.0-105.0); MEAN CORPUSCULAR HEMOGLOBIN 29.9 pg (25.0-35.0); MEAN PLATELET VOLUME 10.3 fl (7.0-11.0); RED CELL DISTRIBUTION WIDTH 14.5 % (11.5-14.5); WHITE BLOOD COUNT 10.9 10^3/ul (4.5-11.0)
[2017-10-14 07:27] LABS: ALB/GLOB RATIO 0.9 (1.1-1.8); BILIRUBIN,DIRECT 0.6 mg/dL (0.0-0.4); BILIRUBIN,TOTAL 0.6 mg/dL (0.2-1.3); MAGNESIUM 1.6 mg/dL (1.7-2.2); PHOSPHOROUS 3.4 mg/dL (2.5-4.5); TOTAL PROTEIN 6.7 g/dL (5.8-8.3)
[2017-10-14] MEDS ORDERED: Lactated Ringer's 1,000 ML IV SCH (08:15)
--- NOTE | 2017-10-14 08:23 | CP.PCM.PN ---
Subjective - Date & Time of Evaluation Date of Evaluation: 10/14/17 Time of Evaluation: 08:20 - Subjective Subjective: Surgery: Dr. He Pt seen and examined. No acute events overnight. As per daughter in law at bedside, pt feels bloated and denies flatus or BM since surgery. She admits to tolerating liquids and denies N/V. Tmax 100.3 overnight. Objective - Vital Signs/Intake and Output Vital Signs (last 24 hours): Temp Pulse Resp BP Pulse Ox 99.5 F 78 20 200/110 H 94 L 10/14/17 06:47 10/14/17 06:47 10/14/17 00:00 10/14/17 06:47 10/14/17 00:00 Intake and Output: 10/14/17 10/14/17 06:59 18:59 Intake Total 180 Output Total 700 Balance -520 - Medications Medications: Current Medications Acetaminophen (Tylenol 650 Mg Supp) 650 mg RC Q6H PRN PRN Reason: TEMP>=99.5F Last Admin: 10/14/17 01:32 Dose: 650 mg Acetaminophen (Tylenol 325mg Tab) 650 mg PO Q4 PRN PRN Reason: TEMP>=99.5F Last Admin: 10/14/17 06:47 Dose: 650 mg Alendronate Sodium (Fosamax) 70 mg PO Q7D [facility] Last Admin: 10/10/17 06:52 Dose: 70 mg Allopurinol (Zyloprim) 100 mg PO BID [facility] Last Admin: 10/13/17 10:17 Dose: 100 mg Aspirin (Aspirin Chewable) 81 mg PO DAILY [facility] Last Admin: 10/13/17 10:17 Dose: 81 mg Clonidine HCl (Catapres Tts1 0.1 Mg/24 Hr) 1 patch TD Q7D@1000 [facility] Last Admin: 10/09/17 11:26 Dose: 1 patch Diphenhydramine HCl (Benadryl) 25 mg PO HS PRN PRN Reason: Insomnia Last Admin: 10/10/17 23:15 Dose: 25 mg Docusate Sodium (Colace) 100 mg PO BID [facility] Last Admin: 10/13/17 18:55 Dose: 100 mg Heparin Sodium (Porcine) (Heparin) 5,000 units SC Q8 [facility] PRN Reason: Protocol Last Admin: 10/11/17 14:37 Dose: 5,000 units Hydralazine HCl (Apresoline) 10 mg IVP Q6 PRN PRN Reason: FORSBP>=170&/ORDBP>=100MMHG Last Admin: 10/14/17 06:47 Dose: 10 mg Hydromorphone HCl (Dilaudid) 0.5 mg IVP Q4H PRN PRN Reason: Pain, moderate (4-7) Last Admin: 10/13/17 06:14 Dose: 0.5 mg Metronidazole (Flagyl) 500 mg in 100 mls @ 100 mls/hr IVPB Q8 [facility]ELINA PRN Reason: Protocol Last Admin: 10/14/17 06:47 Dose: 100 mls/hr Aztreonam (Azactam 1 Gm) 100 mls @ 100 mls/hr IVPB Q8 [facility]ELINA PRN Reason: Protocol Stop: 10/16/17 23:16 Last Admin: 10/14/17 05:14 Dose: 100 mls/hr Lactated Ringer's (Lactated Ringer's) 1,000 mls @ 100 mls/hr IV .Q10H [facility] Insulin Human Lispro (Humalog Med) 0 units SC ACHS [facility] PRN Reason: Protocol Last Admin: 10/14/17 00:13 Dose: Not Given Ondansetron HCl (Zofran Inj) 4 mg IVP Q4H PRN PRN Reason: Nausea/Vomiting Last Admin: 10/11/17 22:04 Dose: 4 mg Sertraline HCl (Zoloft) 100 mg PO DAILY [facility] Last Admin: 10/13/17 10:16 Dose: 100 mg - Labs Labs: 10/14/17 07:10 10/13/17 06:00 PT 12.9 SECONDS (9.4-12.5) H 10/12/17 06:20 INR 1.17 (0.93-1.08) H 10/12/17 06:20 APTT 29.1 Seconds (25.1-36.5) 10/12/17 06:20 - Constitutional Appears: No Acute Distress - Head Exam Head Exam: ATRAUMATIC, NORMOCEPHALIC - ENT Exam ENT Exam: Mucous Membranes Moist - Respiratory Exam Respiratory Exam: NORMAL BREATHING PATTERN - Cardiovascular Exam Cardiovascular Exam: RRR - GI/Abdominal Exam GI & Abdominal Exam: Distended, Soft, Diminished Bowel Sounds. absent: Guarding , Tenderness - Neurological Exam Neurological Exam: Alert, Awake, Oriented x3 - Skin Skin Exam: Dry, Warm Assessment and Plan - Assessment and Plan (Free Text) Assessment: 72F with gallstone pancreatitis; s/p lap geneva, POD#2 Plan: - cont liquid diet for now since pt may have some post-op ileus - encourage ambulation - f/u kasper cultures - cont IV ABX - d/w Dr. Neri Lenz, PGY-3 Surgery
[2017-10-14 08:49] LABS: BILIRUBIN,TOTAL 0.6 mg/dL (0.2-1.3); CALCIUM 6.9 mg/dL (8.4-10.5); POTASSIUM 4.3 mmol/L (3.6-5.0); TOTAL PROTEIN 6.6 g/dL (5.8-8.3)
[2017-10-14] MEDS: Magnesium Sulfate 2 GM in Sodium Chloride 0.9% 100 ML IVPB SCH ×2 (09:12→11:06)
--- NOTE | 2017-10-14 09:47 | RAD ---
HISTORY: POST OP FEVER COMPARISON: Chest x-ray performed 10/12/17 TECHNIQUE: Chest PA and lateral FINDINGS: Examination limited by habitus and hypoinflation. LUNGS: Mild interstitial prominence may reflect infection or edema. PLEURA: No significant pleural effusion identified. No definite pneumothorax . CARDIOVASCULAR: Cardiomegaly. Atherosclerotic calcifications. OSSEOUS STRUCTURES: Degenerative changes. Osseous demineralization. VISUALIZED UPPER ABDOMEN: Elevation of the right hemidiaphragm. OTHER FINDINGS: None. IMPRESSION: Mild interstitial prominence may reflect infection or edema. Cardiomegaly. Atherosclerotic calcifications.
[2017-10-14] MEDS ORDERED: Vancomycin 2 GM in Sodium Chloride 0.9% 500 ML IVPB ONE (10:06)
[2017-10-14] MEDS: Meropenem 1 GM in Dextrose 5% In Water 100 ML IVPB SCH ×2 (11:02→21:50)
--- NOTE | 2017-10-14 12:28 | CT ---
CT abdomen and pelvis without IV contrast Indication: post lap choly fever Technique: Contiguous axial images of the abdomen and pelvis. Oral contrast was administered. No IV contrast given. Coronal and Sagittal reformats generated and reviewed. This CT exam was performed using 1 or more of the following dose reduction techniques: Automated exposure control, adjustment of the MAA and/or kV according to patient size, and/or use of iterative reconstruction technique. Radiation dose: Total exam DLP = 845.15 mGy-cm. Comparison: CT abdomen pelvis without contrast performed 10/09/17 Findings: Small bilateral pleural effusions and associated consolidations. No visible pneumothorax. Small hiatal hernia/distal esophageal wall thickening. Cholecystectomy. Fluid within the gallbladder fossa. Drainage catheter via right abdominal approach terminates in the right upper quadrant at the surgical site. The noncontrast liver, spleen, kidneys, pancreas, and adrenal glands appear unremarkable. The stomach is nondistended. The bowel loops appear within normal limits of caliber without evidence of intestinal obstruction. There is no definite free air. The appendix appears within normal limits of caliber. No secondary signs of acute appendicitis. Uterus is present. IUD. Nair catheter within a decompressed urinary bladder which contains air, presumably due to recent instrumentation. Small focus of air at the umbilicus. Degenerative changes of the spine. Impression: Small bilateral pleural effusions and associated consolidations. Cholecystectomy. Fluid within the gallbladder fossa. Drainage catheter via right abdominal approach terminates in the right upper quadrant at the surgical site. Nair catheter within a decompressed urinary bladder which contains air, presumably due to recent instrumentation. Small focus of air at the umbilicus. IUD. Small hiatal hernia/distal esophageal wall thickening.
[2017-10-14] MEDS: Dextrose 5%/0.45% NS 1,000 ML IV SCH (13:26)
--- NOTE | 2017-10-14 14:11 | CP.PCM.CON ---
History of Present Illness - History of Present Illness History of Present Illness: renal consult note please call us at [phone] if any qs. 72 y/o Iraqi F with CAD s/p stent, HTN, HLD, and DM2 who presents with severe abdominal pain and n/v x1 day, found to have acute pancreatitis and cholelithiasis for which she underwent gb removal. post op noted to have lianna hence i have been consulted. per nursing, nichols was placed yesterday as she was retainingurine on bladder scan. looking at the cr trend, she may have some baseline ckd around stage 2 ( b/l cr around 1.5) Review of Systems - Review of Systems All systems: reviewed and no additional remarkable complaints except Past Patient History - Infectious Disease Hx of Infectious Diseases: None - Past Medical History & Family History Past Medical History?: Yes - Past Social History Smoking Status: Never Smoked - CARDIAC Hx Cardiac Disorders: Yes (angina, stent) Hx Hypertension: Yes - PULMONARY Hx Respiratory Disorders: No - NEUROLOGICAL Hx Neurological Disorder: No - HEENT Hx HEENT Problems: No - RENAL Hx Chronic Kidney Disease: No - ENDOCRINE/METABOLIC Hx Diabetes Mellitus Type 2: Yes - HEMATOLOGICAL/ONCOLOGICAL Hx Blood Disorders: No - INTEGUMENTARY Hx Dermatological Problems: No - MUSCULOSKELETAL/RHEUMATOLOGICAL Hx Falls: No - GASTROINTESTINAL Hx Gastrointestinal Disorders: No - GENITOURINARY/GYNECOLOGICAL Hx Genitourinary Disorders: No - PSYCHIATRIC Hx Psychophysiologic Disorder: No Hx Substance Use: No - SURGICAL HISTORY Hx Cardiac Catheterization: Yes Hx Coronary Stent: Yes - ANESTHESIA Hx Anesthesia: Yes Hx Anesthesia Reactions: No Hx Malignant Hyperthermia: No Meds Allergies/Adverse Reactions: Allergies Allergy/AdvReac Type Severity Reaction Status Date / Time Penicillins Allergy RASH Verified 02/15/16 20:12 - Medications Medications: Current Medications Acetaminophen (Tylenol 650 Mg Supp) 650 mg RC Q6H PRN PRN Reason: TEMP>=99.5F Last Admin: 10/14/17 01:32 Dose: 650 mg Acetaminophen (Tylenol 325mg Tab) 650 mg PO Q4 PRN PRN Reason: TEMP>=99.5F Last Admin: 10/14/17 06:47 Dose: 650 mg Alendronate Sodium (Fosamax) 70 mg PO Q7D [facility] Last Admin: 10/10/17 06:52 Dose: 70 mg Allopurinol (Zyloprim) 100 mg PO BID [facility] Last Admin: 10/14/17 11:04 Dose: 100 mg Aspirin (Aspirin Chewable) 81 mg PO DAILY [facility] Last Admin: 10/14/17 11:01 Dose: 81 mg Clonidine HCl (Catapres Tts1 0.1 Mg/24 Hr) 1 patch TD Q7D@1000 [facility] Last Admin: 10/09/17 11:26 Dose: 1 patch Diphenhydramine HCl (Benadryl) 25 mg PO HS PRN PRN Reason: Insomnia Last Admin: 10/10/17 23:15 Dose: 25 mg Docusate Sodium (Colace) 100 mg PO BID [facility] Last Admin: 10/14/17 11:01 Dose: 100 mg Heparin Sodium (Porcine) (Heparin) 5,000 units SC Q8 [facility] PRN Reason: Protocol Last Admin: 10/14/17 13:32 Dose: 5,000 units Hydralazine HCl (Apresoline) 10 mg IVP Q6 PRN PRN Reason: FORSBP>=170&/ORDBP>=100MMHG Last Admin: 10/14/17 06:47 Dose: 10 mg Hydromorphone HCl (Dilaudid) 0.5 mg IVP Q4H PRN PRN Reason: Pain, moderate (4-7) Last Admin: 10/13/17 06:14 Dose: 0.5 mg Meropenem 1 gm/ Dextrose 100 mls @ 100 mls/hr IVPB Q8 [facility] PRN Reason: Protocol Stop: 10/23/17 10:16 Last Admin: 10/14/17 11:02 Dose: 100 mls/hr Dextrose/Sodium Chloride (Dextrose 5%/0.45% Ns 1000 Ml) 1,000 mls @ 83 mls/hr IV .Q12H3M [facility] Last Admin: 10/14/17 13:26 Dose: 83 mls/hr Insulin Human Lispro (Humalog Med) 0 units SC ACHS [facility] PRN Reason: Protocol Last Admin: 10/14/17 13:27 Dose: Not Given Ondansetron HCl (Zofran Inj) 4 mg IVP Q4H PRN PRN Reason: Nausea/Vomiting Last Admin: 10/11/17 22:04 Dose: 4 mg Sertraline HCl (Zoloft) 100 mg PO DAILY [facility] Last Admin: 10/14/17 11:01 Dose: 100 mg Physical Exam - Constitutional Appears: In Acute Distress - Head Exam Head Exam: NORMAL INSPECTION - Eye Exam Eye Exam: Normal appearance - ENT Exam ENT Exam: Mucous Membranes Moist - Neck Exam Neck exam: Positive for: Normal Inspection - Respiratory Exam Respiratory Exam: NORMAL BREATHING PATTERN - Cardiovascular Exam Cardiovascular Exam: +S1, +S2 - GI/Abdominal Exam GI & Abdominal Exam: Soft, Tenderness - Neurological Exam Neurological exam: Alert, Oriented x3 - Skin Skin Exam: Dry, Intact Results - Vital Signs Recent Vital Signs: Last Vital Signs Temp 98.5 F 10/14/17 12:00 Pulse 91 H 10/14/17 12:00 Resp 19 10/14/17 12:00 BP 182/88 H 10/14/17 12:00 Pulse Ox 98 10/14/17 06:00 - Labs Result Diagrams: 10/14/17 07:10 10/14/17 06:00 Labs: Laboratory Results - last 24 hr 10/10/17 10/14/17 10/14/17 06:00 06:00 06:00 WBC RBC Hgb Hct MCV MCH MCHC RDW Plt Count MPV Sodium 143 Potassium 4.3 Chloride 114 H Carbon Dioxide 17 L Anion Gap 15 BUN 20 Creatinine 1.6 H Est GFR ( Amer) 38 Est GFR (Non-Af Amer) 32 Random Glucose 70 Calcium 6.9 L* Phosphorus 3.4 Magnesium 1.6 L Total Bilirubin 0.6 0.6 Direct Bilirubin 0.6 H AST 124 H D 121 H ALT 75 H 71 H Alkaline Phosphatase 63 64 Total Protein 6.7 6.6 Albumin 3.2 3.2 Globulin 3.5 3.4 Albumin/Globulin Ratio 0.9 L 1.0 L Amylase 65 Lipase 239 HCV RNA Qual (TMA) Not detected Blood Type Blood Type Confirm Antibody Screen Crossmatch BBK History Checked 10/14/17 10/14/17 10/14/17 07:10 10:18 10:45 WBC 10.9 RBC 2.91 L Hgb 8.7 L Hct 29.0 L MCV 99.7 MCH 29.9 MCHC 30.0 L RDW 14.5 Plt Count 211 MPV 10.3 Sodium Potassium Chloride Carbon Dioxide Anion Gap BUN Creatinine Est GFR ( Amer) Est GFR (Non-Af Amer) Random Glucose Calcium Phosphorus Magnesium Total Bilirubin Direct Bilirubin AST ALT Alkaline Phosphatase Total Protein Albumin Globulin Albumin/Globulin Ratio Amylase Lipase HCV RNA Qual (TMA) Blood Type A POSITIVE Blood Type Confirm A POSITIVE Antibody Screen Negative Crossmatch See Detail BBK History Checked No verified bt Assessment & Plan - Assessment and Plan (Free Text) Plan: LIANNA/CKD/htn/dm/s.p lap cholecystectomy cr better today lianna likely sec to preernal from abdominal pain/NPO post op/retention of urine post surgery continue with nichols monitor UOP lytes ok UA has blood but nichols specimen can continue fludis as poor po intake HTN: i have increased her clonidine patch d/w primary attending on service
--- NOTE | 2017-10-14 15:11 | PN ---
DATE: 10/14/2017 SUBJECTIVE: The patient was seen early this morning. She continues to have low grade fevers. She did have temperature of 100.2. Yesterday, the patient had a temperature of 100.3. She appears weak and washed out. PHYSICAL EXAMINATION: VITAL SIGNS: On exam, temperature is 100.2, blood pressure is 200/100, respiratory rate of 20, and heart rate of 90. HEENT: Unremarkable. NECK: Supple. LUNGS: Have decreased breath sounds. HEART: Normal S1 and S2. ABDOMEN: Soft. Mild tenderness. No rebound or guarding. LABORATORY DATA: Reveals a white count of 10,000, hemoglobin of 8, platelets of 211. Chemistries reveals the patient has a creatinine of 1.6. LFTs remained elevated, somewhat improved. The patient's last procalcitonin is 0.36. The patient's lipase is improved. Urinalysis is noted with 25-30 wbc's, many bacteria. Hepatitis C is noted to be positive, but the PCR is undetectable. The HIV is negative. Microbiology reveals the blood cultures are negative. The gallbladder cultures are pending. Blood cultures were ordered yesterday. Urine cultures were ordered yesterday. Sputum cultures were ordered yesterday. Alk phos is normal. The patient had a chest x-ray yesterday. MEDICATIONS: Review of the medications reveals the patient was on Zoloft at home. ASSESSMENT AND PLAN: This is a 72-year-old female seen earlier in room 374, bed 2, appearing washed out with persistent fevers, abdominal discomfort, with systemic inflammatory response syndrome, acute pancreatitis, status post history of coronary artery disease, status post percutaneous coronary intervention in the past, with dyslipidemia, diabetes, obesity, body mass index of 32, hypertension, status post laparoscopic cholecystectomy postprocedure day #2 with fevers, abdominal tenderness, and concerned about a leak versus complications of pancreatitis. We will start the patient on meropenem. Discontinue Azactam and Flagyl. We will check on the blood cultures, urine cultures, sputum cultures. Repeat procalcitonin, and start the patient on meropenem. The patient is allergic to penicillin, however, it is not type 1. There is a questionable rash at most. Pending pancultures and CAT scan of the abdomen and pelvis to rule out complications of pancreatitis, pseudocyst, collection, and a HIDA scan to rule out a biliary leak, and repeat a procalcitonin. We will give a dose of vancomycin also. Case discussed with the nursing staff. Vick Sinclair MD
--- NOTE | 2017-10-14 20:03 | PN ---
DATE: 10/14/2017 SUBJECTIVE: The patient is seen lying in the bed in room 374, bed 2. The patient's family is at bedside. The patient was seen and examined along with the surgery. Overnight nurse's notes were reviewed. The patient underwent chest x-ray. The patient is comfortable at present. The patient herself does not offer any complaint. Most of the issues were reviewed with the nurse's notes. OBJECTIVE: VITAL SIGNS: T-max in the last 24 hours 102.1 down to 100.3 down to 99.5. Heart rate 91, 79, and 88. Blood pressure is 182/88, 180/100, 105/67, 138/72, and 138/69. Respirations 18 to 20 and O2 sat 98%. INTAKE OUTPUT: Intake 60. Yesterday's output was 855. Today's intake 1680 and output is 700. The patient has started to make much more higher urine output as compared to yesterday after the patient's IV fluid was increased and the patient's bolus was given and Nair catheter was inserted. HEENT: Head examination; normocephalic and atraumatic. HEENT examination shows pinkish pale conjunctivae. Dry oral mucosa. NECK: No neck rigidity. CHEST: Kyphosis. LUNGS: Shows no crackles or rales. Occasional rhonchi in upper lung dash anteriorly. CARDIOVASCULAR: S1 and S2, regular rhythm. ABDOMEN: Protuberant. Positive right-sided LISA drain. Positive diffuse voluntary guarding. Positive diffuse abdominal tenderness, protuberant abdomen. GENITALIA: Female. Positive Nair catheter. EXTREMITIES: Shows positive swelling of the lower extremity. No calf tenderness. No Homans signs. MUSCULOSKELETAL: Shows an elevated body mass index for stated age and height. BMI of greater than 32. NEUROLOGIC: The patient is alert, awake, responsive, and is able to move upper and lower extremity without assistance. Gait examination could not be tested. As mentioned again, the patient is almost everyday seen lying in the bed. I have not seen the patient out of bed to recliner. I have advised the patient's nurses to get the patient out of bed and ambulate with physical therapy and with family and with nurses. DIAGNOSTIC DATA: On 10/14/2017; WBC 10.9, hemoglobin/hematocrit 8.7 and 29.0, and platelet 211. Sodium 143, potassium 4.3, chloride 114, CO2 of 17, anion gap 15, BUN 20, creatinine down to 1.6 from 5.2, GFR 32, glucose 70, calcium 6.9, and magnesium 1.6. AST is down to 124 and 121. ALT down to 70 from 175. Amylase and lipase are normal at 65 and 239. Blood type A+. Chest x-ray from yesterday, 10/13/2017 shows interstitial prominence, cardiomegaly, and degenerative joint disease. The patient had a CT scan of the abdomen and pelvis done because of unexplained postop fever. CAT scan of the abdomen and pelvis is done with postop fever, which shows small bilateral pleural effusion, consolidation, small hiatal hernia, distal esophageal wall thickening, cholecystectomy with fluid in the gallbladder fossa, and positive LISA drain. Uterus has an IUD place, Nair catheter placement. Degenerative joint disease of the spine. IMPRESSION: 1. Postoperative fever. 2. Questionable transient uncontrolled hypertension. 3. Questionable volume and fluid overload. 4. Status post acute kidney injury. 5. Anemia with decreasing hemoglobin/hematocrit. 6. Leukocytosis. 7. Elevated reticulocyte count. 8. Diabetes mellitus with hemoglobin A1c of 6.7, well controlled. 9. Hypocalcemia. 10. Hypomagnesemia. 11. Gallstone pancreatitis and hepatitis and transaminitis. 12. Obesity with elevated body mass index. 13. Proteinuria, hematuria, pyuria, and bacteriuria. 14. Reactive hepatitis C antibody with nondetected hepatitis C RNA qualitative and quantitative. 15. A+ blood type. 16. Small bilateral pleural effusion and consolidation. 17. Cholecystectomy with gallbladder fossa fluid. 18. Uterine intrauterine device. 19. Degenerative joint disease of the spine. 20. Small hiatal hernia with distal esophageal wall thickening. 21. Gait dysfunction. 22. Systemic inflammatory response syndrome. 23. Status post laparoscopic cholecystectomy, postoperative day 3. 24. Hypocalcemia. 25. History of depression, history of osteoporosis, history of hypothyroidism, history of diabetes mellitus, history of hypertension, and history of dyslipidemia. PLAN: At this time, the patient has been ordered serial labs. Repeat blood cultures done from yesterday and urine cultures done from yesterday, the results are pending. CURRENT CONSULTATIONS: 1. Cardiology. 2. Infectious Disease. 3. Nephrology. 4. Surgery. 5. Gastroenterology. The patient's case referred for TCU. Ordered transfusion of one unit of PRBC. CURRENT MEDICATIONS: 1. Hydralazine 10 mg IV q.6 hours p.r.n. 2. Aspirin 81 mg daily. 3. Benadryl 25 mg at bedtime p.r.n. 4. Stat clonidine patch 0.1 mg weekly. 5. Colace 100 mg twice a day. 6. The patient is started on D5 half normal at 83 mL an hour. 7. Dilaudid 0.5 mg IV q.4 hours p.r.n. 8. Fosamax 70 mg weekly. 9. Heparin 5000 subcutaneously q.8 hours. 10. Humalog medium dose sliding scale coverage a.c. and at bedtime. 11. Meropenem 1 g IV q.8 hours. 12. Tylenol p.o. and suppository q.6 hours p.r.n. for fever. 13. The patient was given vancomycin 2 g IV one dose today. 14. Zofran 4 mg IV q.4 hours. 15. Zoloft 100 mg daily. 16. Allopurinol 100 mg twice a day. The patient was seen by Infectious Disease. The patient has been ordered a HIDA scan to rule out biliary leak. The patient has been ordered incentive spirometry. The patient is ordered oxygen. The patient is ordered liquid diet. The patient is ordered bladder scan. The patient has been ordered out of bed to recliner, PADDY stockings, and SCDs. Transfusion of packed red blood cells ordered 1 unit. The patient has been ordered occupational therapy, physical therapy, and out of bed to chair. The patient's management, treatment plan in activity, and blood transfusion, continuation of medication discussed with the patient's nurse. Dictated and electronically signed, not read. Cecil Cutler MD
[2017-10-15] MEDS: Dextrose 5%/0.45% NS 1,000 ML IV SCH (05:02)
[2017-10-15] MEDS: Insulin Lispro (humaLOG) MEDIUM Coverage SC SCH ×5 (05:05→22:45)
[2017-10-15] MEDS: Meropenem 1 GM in Dextrose 5% In Water 100 ML IVPB SCH ×3 (05:17→22:02)
[2017-10-15] MEDS ORDERED: Dextrose 5%/0.45% NS 1,000 ML IV SCH (06:42)
[2017-10-15 07:19] LABS: BASO # 0.03 K/mm3 (0.0-2.0); BASO % 0.3 % (0.0-3.0); EOS # 0.3 (0.0-0.7); EOS % 2.4 % (1.5-5.0); GRAN # 9.54 (1.4-6.5); GRAN % 84.5 % (50.0-68.0); HEMATOCRIT 31.5 % (36.0-48.0); LYMPH # 0.9 (1.2-3.4); LYMPH % 7.9 % (22.0-35.0); MEAN CELL VOLUME 94.6 fl (80.0-105.0); MEAN CORPUSCULAR HEMOGLOBIN 29.1 pg (25.0-35.0); MEAN CORPUSCULAR HGB CONC 30.8 g/dl (31.0-37.0); MEAN PLATELET VOLUME 10.4 fl (7.0-11.0); MONO # 0.6 (0.1-0.6); MONO % 4.9 % (1.0-6.0); RED CELL DISTRIBUTION WIDTH 16.1 % (11.5-14.5); WHITE BLOOD COUNT 11.3 10^3/ul (4.5-11.0)
--- NOTE | 2017-10-15 07:49 | CP.PCM.PN ---
Subjective - Date & Time of Evaluation Date of Evaluation: 10/15/17 Time of Evaluation: 07:49 - Subjective Subjective: Surgery Progress Note for Dr. He: Pt seen and examined at bedside. No acute overnight events. Pt reports no BM, but passing flatus. Pt daughter at bedside, reports fevers and increased BP over weekend. Pt is afebrile today. Pt j carlos CLD. Pt denied CP, SOB, nausea, vomiting, abdominal pain, chills, or HIGH. Objective - Vital Signs/Intake and Output Vital Signs (last 24 hours): Temp Pulse Resp BP Pulse Ox 99.5 F 102 H 20 191/97 H 97 10/15/17 06:00 10/15/17 06:00 10/15/17 06:00 10/15/17 07:09 10/15/17 06:00 Intake and Output: 10/15/17 10/15/17 06:59 18:59 Intake Total 1570 Output Total 1300 Balance 270 - Medications Medications: Current Medications Acetaminophen (Tylenol 650 Mg Supp) 650 mg RC Q6H PRN PRN Reason: TEMP>=99.5F Last Admin: 10/14/17 01:32 Dose: 650 mg Acetaminophen (Tylenol 325mg Tab) 650 mg PO Q4 PRN PRN Reason: TEMP>=99.5F Last Admin: 10/15/17 05:14 Dose: 650 mg Alendronate Sodium (Fosamax) 70 mg PO Q7D [facility] Last Admin: 10/10/17 06:52 Dose: 70 mg Allopurinol (Zyloprim) 100 mg PO BID [facility] Last Admin: 10/14/17 17:04 Dose: 100 mg Aspirin (Aspirin Chewable) 81 mg PO DAILY [facility] Last Admin: 10/14/17 11:01 Dose: 81 mg Clonidine HCl (Catapres-Tts2 0.2 Mg/24 Hr) 1 patch TD Q7D@1000 [facility] Last Admin: 10/14/17 17:05 Dose: 1 patch Diphenhydramine HCl (Benadryl) 25 mg PO HS PRN PRN Reason: Insomnia Last Admin: 10/10/17 23:15 Dose: 25 mg Docusate Sodium (Colace) 100 mg PO BID [facility] Last Admin: 10/14/17 17:05 Dose: Not Given Heparin Sodium (Porcine) (Heparin) 5,000 units SC Q8 [facility] PRN Reason: Protocol Last Admin: 10/15/17 05:18 Dose: 5,000 units Hydralazine HCl (Apresoline) 10 mg IVP Q6 PRN PRN Reason: FORSBP>=170&/ORDBP>=100MMHG Last Admin: 10/15/17 05:18 Dose: 10 mg Hydromorphone HCl (Dilaudid) 0.5 mg IVP Q4H PRN PRN Reason: Pain, moderate (4-7) Last Admin: 10/13/17 06:14 Dose: 0.5 mg Meropenem 1 gm/ Dextrose 100 mls @ 100 mls/hr IVPB Q8 [facility] PRN Reason: Protocol Stop: 10/23/17 10:16 Last Admin: 10/15/17 05:17 Dose: 100 mls/hr Dextrose/Sodium Chloride (Dextrose 5%/0.45% Ns 1000 Ml) 1,000 mls @ 60 mls/hr IV .[id number] [facility] Insulin Human Lispro (Humalog Med) 0 units SC ACHS [facility] PRN Reason: Protocol Last Admin: 10/15/17 05:05 Dose: Not Given Ondansetron HCl (Zofran Inj) 4 mg IVP Q4H PRN PRN Reason: Nausea/Vomiting Last Admin: 10/11/17 22:04 Dose: 4 mg Sertraline HCl (Zoloft) 100 mg PO DAILY [facility] Last Admin: 10/14/17 11:01 Dose: 100 mg - Labs Labs: 10/15/17 07:00 10/14/17 06:00 PT 12.9 SECONDS (9.4-12.5) H 10/12/17 06:20 INR 1.17 (0.93-1.08) H 10/12/17 06:20 APTT 29.1 Seconds (25.1-36.5) 10/12/17 06:20 - Constitutional Appears: No Acute Distress - Head Exam Head Exam: ATRAUMATIC, NORMOCEPHALIC - Eye Exam Eye Exam: Normal appearance - ENT Exam ENT Exam: Mucous Membranes Moist - Respiratory Exam Respiratory Exam: NORMAL BREATHING PATTERN. absent: Accessory Muscle Use, Respiratory Distress - Cardiovascular Exam Cardiovascular Exam: RRR. absent: Gallop, Rubs, Murmur - GI/Abdominal Exam GI & Abdominal Exam: Soft. absent: Distended, Guarding, Tenderness, Rebound Additional comments: Noe drain with 250 cc SS output over 12 hrs, no erthyema, discharge, or TTP at drain site. incisions c/d/i. - Exam Additional comments: Nichols with 700 cc over 12 hrs - Neurological Exam Neurological Exam: Alert, Awake, Oriented x3 - Skin Skin Exam: Dry, Intact, Normal Color, Warm Assessment and Plan - Assessment and Plan (Free Text) Assessment: 72F with gallstone pancreatitis; s/p lap [place], POD#3 Plan: - Advance to full liquid diet - Encourage OOB, IS - H/H stable, cont to monitor - D/C nichols - Cultures show no growth after 24 hrs - cont IV ABX - HTN management per medicine - d/w Dr. Neri Patterson, PGY1
[2017-10-15 08:11] LABS: ALB/GLOB RATIO 0.9 (1.1-1.8); BILIRUBIN,DIRECT 0.7 mg/dL (0.0-0.4); BILIRUBIN,TOTAL 0.7 mg/dL (0.2-1.3); CALCIUM 6.8 mg/dL (8.4-10.5); MAGNESIUM 2.2 mg/dL (1.7-2.2); PHOSPHOROUS 2.5 mg/dL (2.5-4.5); POTASSIUM 4.1 mmol/L (3.6-5.0); TOTAL PROTEIN 6.5 g/dL (5.8-8.3)
--- NOTE | 2017-10-15 10:04 | RAD ---
HISTORY: adventitious lung sounds COMPARISON: Chest radiographs 10/15/2017. FINDINGS: LUNGS: No active pulmonary disease. PLEURA: No significant pleural effusion identified, no pneumothorax apparent. CARDIOVASCULAR: Cardiomegaly stable. No pulmonary vascular derangement identified. OSSEOUS STRUCTURES: No significant abnormalities. VISUALIZED UPPER ABDOMEN: Mammilated right hemidiaphragm again evident. OTHER FINDINGS: None. IMPRESSION: No interval acute cardiopulmonary disease appreciated. Cardiomegaly unchanged.
--- NOTE | 2017-10-15 13:32 | CP.PCM.PN ---
Subjective - Date & Time of Evaluation Date of Evaluation: 10/15/17 Time of Evaluation: 13:29 - Subjective Subjective: PGY-[address] Cutler Pt was OOB this AM. Elevated BP likely from pain in abdomin, now BP is controlled. educated pt family and pt regarding alerting RN in case of pain. No BM Objective - Vital Signs/Intake and Output Vital Signs (last 24 hours): Temp Pulse Resp BP Pulse Ox 98.1 F 102 H 20 140/68 97 10/15/17 10:45 10/15/17 06:00 10/15/17 06:00 10/15/17 10:45 10/15/17 06:00 Intake and Output: 10/15/17 10/15/17 06:59 18:59 Intake Total 1570 Output Total 1300 Balance 270 - Medications Medications: Current Medications Acetaminophen (Tylenol 650 Mg Supp) 650 mg RC Q6H PRN PRN Reason: TEMP>=99.5F Last Admin: 10/14/17 01:32 Dose: 650 mg Acetaminophen (Tylenol 325mg Tab) 650 mg PO Q4 PRN PRN Reason: TEMP>=99.5F Last Admin: 10/15/17 05:14 Dose: 650 mg Alendronate Sodium (Fosamax) 70 mg PO Q7D [facility] Last Admin: 10/10/17 06:52 Dose: 70 mg Allopurinol (Zyloprim) 100 mg PO BID [facility] Last Admin: 10/15/17 10:25 Dose: 100 mg Aspirin (Aspirin Chewable) 81 mg PO DAILY [facility] Last Admin: 10/15/17 10:25 Dose: 81 mg Clonidine HCl (Catapres-Tts2 0.2 Mg/24 Hr) 1 patch TD Q7D@1000 [facility] Last Admin: 10/14/17 17:05 Dose: 1 patch Diphenhydramine HCl (Benadryl) 25 mg PO HS PRN PRN Reason: Insomnia Last Admin: 10/10/17 23:15 Dose: 25 mg Docusate Sodium (Colace) 100 mg PO BID [facility] Last Admin: 10/15/17 10:25 Dose: 100 mg Heparin Sodium (Porcine) (Heparin) 5,000 units SC Q8 [facility] PRN Reason: Protocol Last Admin: 10/15/17 05:18 Dose: 5,000 units Hydralazine HCl (Apresoline) 10 mg IVP Q6 PRN PRN Reason: FORSBP>=170&/ORDBP>=100MMHG Last Admin: 10/15/17 05:18 Dose: 10 mg Hydromorphone HCl (Dilaudid) 0.5 mg IVP Q4H PRN PRN Reason: Pain, moderate (4-7) Last Admin: 10/13/17 06:14 Dose: 0.5 mg Meropenem 1 gm/ Dextrose 100 mls @ 100 mls/hr IVPB Q8 [facility] PRN Reason: Protocol Stop: 10/23/17 10:16 Last Admin: 10/15/17 05:17 Dose: 100 mls/hr Insulin Human Lispro (Humalog Med) 0 units SC ACHS [facility] PRN Reason: Protocol Last Admin: 10/15/17 08:36 Dose: Not Given Ondansetron HCl (Zofran Inj) 4 mg IVP Q4H PRN PRN Reason: Nausea/Vomiting Last Admin: 10/11/17 22:04 Dose: 4 mg Sertraline HCl (Zoloft) 100 mg PO DAILY [facility] Last Admin: 10/15/17 10:25 Dose: 100 mg - Labs Labs: 10/15/17 07:00 10/15/17 07:00 PT 12.9 SECONDS (9.4-12.5) H 10/12/17 06:20 INR 1.17 (0.93-1.08) H 10/12/17 06:20 APTT 29.1 Seconds (25.1-36.5) 10/12/17 06:20 - Constitutional Appears: No Acute Distress - Head Exam Head Exam: ATRAUMATIC, NORMAL INSPECTION, NORMOCEPHALIC - Eye Exam Eye Exam: EOMI, Normal appearance, PERRL. absent: Scleral icterus Pupil Exam: NORMAL ACCOMODATION - ENT Exam ENT Exam: Mucous Membranes Moist Additional comments: supple neck - Respiratory Exam Respiratory Exam: Decreased Breath Sounds (lung bases), Clear to Ausculation Bilateral - Cardiovascular Exam Cardiovascular Exam: REGULAR RHYTHM, +S1, +S2 - GI/Abdominal Exam GI & Abdominal Exam: Distended, Soft, Tenderness (generalized), Normal Bowel Sounds. absent: Guarding, Rigid Additional comments: LISA drain serosanguanous 250cc/12 hr nichols 700 cc/12 hrs - Extremities Exam Extremities Exam: Pedal Edema. absent: Calf Tenderness - Neurological Exam Neurological Exam: Alert, Awake - Psychiatric Exam Psychiatric exam: Normal Affect, Normal Mood - Skin Skin Exam: Dry, Warm Assessment and Plan - Assessment and Plan (Free Text) Plan: Ms Smith, 72 y/o Ethiopian F, with CAD s/p PCI/stent, HTN, HLD, and DM2 who presents with severe abdominal pain and n/v x1 day, found likely to have acute gallstone pancreatitis. cholilithiasis may have spontanously passed and pt's cholestatic lab was trending better. Pt underwent laparoscopic cholecystectomy on 10/12. Post op noted to have LIANNA. Nichols was placed as pt was retaining urine on bladder scan. Creatinine trend reveals that pt may have some baseline ckd around stage 2 ( b/l cr around 1.5). She was found to have hepatitis C likely chronic not-active. LIANNA on CKD 2 - could be post renal (urine retention) vs prerenal (Prior NPO) - nichols, i/o, bladder scan PRN - avoid nephrotoxic drugs for now - pending HIDA to r/o bile leak Systemic Inflammatory response syndrome probably from acute pancreatitis R/O cholecystitis Acute gallstone pancreatitis s/p ABX: Aztreonam & Flagyl - dilaudid 0.5q4 pRN, docusate 100 BID - Zofran PRN; Tylenol PRN fever Hepatitis C Transaminitis - improving - Hep panel: +Hep C Ab - f/u genotype - HCV quant and viral load - not detected - Hold Lipitor, Fenofibrate Anemia, acute on chronic, s/p 1p RBC - continue monito H/H - B12: 432; Folate: 18; Iron: 55; Ferritin: 158; TIBC: 357; % Saturation: 15; Retic count: 2.37 Hx CAD - continue ASA 81 - Lipid panel: Trig 192, Chol 174, LDL 113, HDL 37 Hx DM2, A1C 6.7 - ISSS-lispro med Hx HTN, HLD - hydralazine 10q6 PRN, clinidine 0.2 Mg/d patch q7 - Hold HCTZ, Diovan and Metoprolol because LIANNA over the weekend Hx Depression - Zoloft 100mg PO QD Hx Osteoporosis - Fosamax 70 mg PO Q7D Prophylactic Measures - PTX/Heparin/SCDs/stockings/OOB Discharge planning - OOB q shift - TCU eval S/R/D/w Dr. Cutler
--- NOTE | 2017-10-15 13:43 | PN ---
DATE: 10/15/2017 SUBJECTIVE: The patient is seen in room 374, bed 2. The patient is again seen lying in the bed and the patient's [id number] is lying in the recliner. According to the patient's nurse who saw the patient with me, the patient's nurse states that the family and the patient are refusing PADDY stockings. The patient was seen by the physical therapist day before yesterday. The patient was not seen by the physical therapist yesterday. Their recommendation was TCU, but according to the most recent update, the patient and the patient's family declined the Transitional Care Unit. Overnight nurse's notes were reviewed. The patient was seen by me and Dr. He yesterday. The patient was not very active despite my recommendation and Dr. He' recommendation to the patient's family including son and the patient. The patient stayed in bed most of the time. The patient was out of bed to recliner for a very brief period. OBJECTIVE: VITAL SIGNS: T-max 99.5-100.3; heart rate 87, 89, 95, 82, and 84; blood pressures 140/68, 151/67, 191/97, 189/91, and 183/97; respirations 20; and O2 sat 97%. HEENT: Head: Normocephalic, atraumatic. HEENT examination shows pinkish pale conjunctivae. Anicteric sclerae, dry oral mucosa. NECK: No neck rigidity. CHEST: Kyphosis. LUNGS: Shows occasional rhonchi upper lung dash. CARDIOVASCULAR: Shows S1 and S2, regular rhythm. ABDOMEN: Protuberant. Positive bowel sound. Positive LISA drain draining light bloody discharge. Positive diffuse tenderness. Positive involuntary guarding. GENITALIA: Female. Positive Nair catheter. EXTREMITIES: Shows positive SCDs. Missing PADDY stocking. 1+ to 2+ pitting edema, no calf tenderness. MUSCULOSKELETAL: Shows body mass index of greater than 32.4. As mentioned, the patient's family has been refusing PADDY stockings and has not been keeping the patient out of bed to recliner for a longer period of time. Gait examination could not be tested. DIAGNOSTIC STUDIES: 10/15/2017; WBC 11.3, hemoglobin and hematocrit 9.7 and 31.5, and platelets 218. Granulocytes 85. PT/PTT was normal. Sodium 140, potassium 4.1, chloride 112, CO2 17, anion gap 15, BUN 14, creatinine 1.1, GFR 59, glucose 106, calcium 6.8, phosphorus 2.5, and magnesium 2.2. AST 68, rest of the LFTs are normal. Amylase and lipase 50 and 177. Procalcitonin level is 1.05 from yesterday, which is slightly elevated. Urine cultures and blood cultures from 10/13/2017 are negative. The patient received 1 unit of PRBC. The patient had a chest x-ray done on 10/15/2017, which shows cardiomegaly, mammillated right hemidiaphragm. The patient is seen by adult neurologist. IMPRESSION: 1. Postoperative fever. 2. Questionable bedridden status versus questionable functional quadriplegia. 3. Uncontrolled hypertension. 4. Morbid obesity. 5. Status post laparoscopic cholecystectomy and intraoperative cholangiogram, postop day #3. 6. Leukocytosis with granulocytosis. 7. Normocytic anemia with decreasing hemoglobin and hematocrit. 8. Status post packed red blood cell transfusion. 9. Elevated reticulocyte count of 2.37. 10. Hypocalcemia. 11. Acute kidney injury. 12. Type 2 diabetes mellitus with hemoglobin A1c of 6.7. 13. Hyper-procalcitoninemia. 14. Gallstone hepatitis and pancreatitis. 15. Morbid obesity with elevated body mass index of 33. 16. Hypertriglyceridemia and hypercholesteremia with elevated LDL and decreased HDL. 17. Proteinuria, microscopic hematuria, pyuria, and bacteriuria. 18. Hepatitis C antibody reactive with negative hepatitis C PCR and PCR RNA quantitative, quantitative. 19. Status post packed red blood cell transfusion x1. 20. Cardiomegaly. 21. Mammillated right hemidiaphragm. The patient at present has been ordered period out of bed. The patient's nurse has been advised to put on PADDY stockings thigh-high. The patient has been ordered serial labs. The patient has been ordered out of bed to recliner, physical therapy. CONSULTATIONS: Cardiology, Infectious Disease, Nephrology, Surgery, and Gastroenterology. CURRENT MEDICATIONS: 1. Hydralazine 10 mg IV q.6 hours p.r.n. 2. Aspirin 81 mg daily. 3. Benadryl 25 p.o. at bedtime p.r.n. 4. The patient was given an amp of calcium gluconate IV piggyback x1 dose. 5. The patient is on clonidine patch 0.2 mg weekly. 6. Colace 100 mg twice a day. 7. Dilaudid 0.5 mg IV q.4 hours p.r.n. 8. Fosamax 70 mg weekly. 9. Heparin 5000 subcu q.8 hours. 10. Humalog medium dose sliding scale coverage a.c. and at bedtime. 11. The patient is given Lasix 40 mg x1 dose. 12. The patient is on meropenem 1 g IV q.8 hours. 13. Tylenol suppository and p.o. q.4 hours p.r.n. 14. The patient was given vancomycin 2 g yesterday x1 dose. 15. Zofran 4 mg IV q.4 hours. 16. Zoloft 100 mg daily. 17. Allopurinol 100 mg twice a day. PLAN: In addition, the patient is ordered a venous Doppler of both lower extremity because of 2+ pitting edema of the lower extremity and the patient is refusing to wear PADDY stockings. The patient's HIDA scan is ordered by Dr. Sinclair to evaluate for a biliary tree. The patient has been again ordered out of bed, PADDY stockings, SCDs, physical therapy, and occupational therapy. All has been be re-ordered. I have met with the patient's two [id number]. I have explained to them very clearly that the patient needs to be out of bed to recliner most of the time of the day and the patient should ambulate as much as possible to improve her overall clinical condition. The patient in addition was seen by the TCU nurse. The patient was accepted to TCU when medically cleared in lieu. Cecil Cutler MD
--- NOTE | 2017-10-15 14:03 | PN ---
DATE: 10/15/2017 SUBJECTIVE: The patient is lying in bed, comfortable. She ambulated in the corridor today. She is tolerating clear liquid diet. She denies any nausea or vomiting. She denies abdominal pain. CURRENT MEDICATIONS: Include Apresoline, aspirin, Benadryl, Catapres, Colace, Dilaudid p.r.n. abdominal pain, Fosamax, heparin, Humalog insulin, meropenem 1 g IV q.8 hours, acetaminophen, Zofran, sertraline, and allopurinol. OBJECTIVE: VITAL SIGNS: Reveal temperature of 98.1, blood pressure of 140/68, and heart rate of 92. HEENT: Reveal sclerae to be white. Conjunctivae pink. NECK: Supple. CHEST: Reveal decreased breath sounds at the bases. HEART: Reveals a regular rate and rhythm. ABDOMEN: Soft and nontender. There is serosanguineous drainage from a right lower quadrant LISA drain. EXTREMITIES: Show no edema. DIAGNOSTIC STUDIES: CT scan of the abdomen and pelvis performed on the reveals small amount of fluid in the gallbladder fossa. LABORATORY DATA: Reveal bicarb of 17, BUN of 14, creatinine of 1.1, total bilirubin of 0.7, AST of 68, ALT of 56, and alkaline phosphatase of 71. Amylase and lipase were all normal. Hepatitis C RNA quantitative is negative. IMPRESSION: Gallstone pancreatitis status post laparoscopic cholecystectomy with mild postop fever, which is improving. CT scan of the abdomen and pelvis show fluid collection in the gallbladder fossa, most likely postop change with serosanguineous drainage from LISA drain. There is no evidence of a bile leak. RECOMMENDATIONS: Advance diet as tolerated. The patient is stable from a GI standpoint. Gary Worrell MD
--- NOTE | 2017-10-15 14:53 | PN ---
DATE: 10/15/2017 SUBJECTIVE: The patient is ambulating with much difficulty and much help around the floor. No shortness of breath. No chest pain. The patient does complain of marked weakness. PHYSICAL EXAMINATION: VITAL SIGNS: Blood pressure is 140/68, heart rate is in the 80s, normal sinus rhythm. NECK: Negative JVD. LUNGS: Decreased breath sounds. HEART: S1 and S2. EXTREMITIES: Without edema. LABORATORY DATA: Hemoglobin is 9.7. Chemistries, BUN and creatinine are unremarkable. IMPRESSION: 1. Status post cholecystectomy. 2. Status post pancreatitis. 3. History of [id number] myocardial infarction and stable coronary artery disease. 4. Anemia. 5. Coronary artery disease PLAN: Given these findings, I have encouraged the patient and the family about the need for increasing the activity including walking in the floor with physical therapy and they have refused TCU. We will continue rehab. We will discontinue telemetry today. Juventino Bryant MD
--- NOTE | 2017-10-15 15:32 | CP.PCM.PN ---
Subjective - Date & Time of Evaluation Date of Evaluation: 10/15/17 Time of Evaluation: 15:28 - Subjective Subjective: Follow up Nephrology Consultation Note Assessment: Stable Acute Kidney Injury (N17.9) likely hemodynamic due to acute illness Diabetic chronic Kidney Disease (E11.22) Hypertensive Chronic Kidney Disease (I12.9) Chronic Kidney Disease (N18.3) Stage 3 (baseline cr 1.1) Anemia HTN (I12.9) Hypocalcemia gallstone pencreatitis s/p lap [place] urine retention s/p nichols Plan No acute need for renal replacement therapy at this time. renal function improved Hypertension control with meds as ordered. resume her valsartan 320 mg Monitor Input/Output, daily weights and renal function with basic metabolic panel she was supplemented with IV calcium 1 gm Check urine spot protein/creatinine and albumin/creatinine ratio, Check for 25-OH vitamin D, iPTH Dose meds/antibiotics for improved GFR. Avoid fleets enema/magnesium based laxatives. Avoid nephrotoxins/NSAIDs/IV iodinated contrast (unless needed emergently) Glycemic control Further work up for as per primary team Thanks for allowing me to participate in care of your patient. Will follow patient with you. Please call if any Qs Dr Paul Dumont Office: [phone] Subjective: Noted events overnight. Patients feels okay. Denies chest pain, palpitation, shortness of breath, leg swelling. No new complaints has [facility] bedside and helped in frisian interpretation Physical Examination: General Appearance: Comfortable, in no acute respiratory distress, co-operative . Vitals reviewed and noted as below Head; Atraumatic, normocephalic ENT: no ulcers no thrush. Tongue is midline. Oropharynx: no rash or ulcers. EYES: Pupils are equal, round and reactive to light accommodation. Eye muscles and extraocular movement intact. Sclera is anicteric. Neck; supple no lymphadenopathy, no thyromegaly or bruit Lungs: Normal respiratory rate/effort. Breath sounds bilateral equal and clear Heart: Normal rate. s1s2 normal. No rub or gallop. Extremities: no edema. No varicose veins Neurological: Patient is alert, awake and oriented to person, place and time. No focal deficit. Strength bilateral appropriate and equal Skin: Warm and dry. Normal turgor. No rash. Palpitation: Normal elasticity for age Abdomen: Abdomen is soft. Bowel sounds +. There is no abdominal tenderness, no guarding/rigidity no organomegaly. RUQ LISA drain+ Psych: normal insight and normal affect/mood MSK: no joint tenderness or swelling. Digits and nails normal, no deformity : kidney or bladder not palpable. has nichosl + Labs/imaging reviewed. Past medical history, past surgical history, family history, social history, allergy reviewed and noted as below Family hx: no hx of CKD. Rest non-contributory CT abdom: renal unremarkable UA trace protein Objective - Vital Signs/Intake and Output Vital Signs (last 24 hours): Temp Pulse Resp BP Pulse Ox 98.2 F 81 18 158/67 H 97 10/15/17 12:00 10/15/17 12:00 10/15/17 12:00 10/15/17 12:00 10/15/17 06:00 Intake and Output: 10/15/17 10/15/17 06:59 18:59 Intake Total 1570 Output Total 1300 Balance 270 - Medications Medications: Current Medications Acetaminophen (Tylenol 650 Mg Supp) 650 mg RC Q6H PRN PRN Reason: TEMP>=99.5F Last Admin: 10/14/17 01:32 Dose: 650 mg Acetaminophen (Tylenol 325mg Tab) 650 mg PO Q4 PRN PRN Reason: TEMP>=99.5F Last Admin: 10/15/17 05:14 Dose: 650 mg Alendronate Sodium (Fosamax) 70 mg PO Q7D [facility] Last Admin: 10/10/17 06:52 Dose: 70 mg Allopurinol (Zyloprim) 100 mg PO BID [facility] Last Admin: 10/15/17 10:25 Dose: 100 mg Aspirin (Aspirin Chewable) 81 mg PO DAILY [facility] Last Admin: 10/15/17 10:25 Dose: 81 mg Clonidine HCl (Catapres-Tts2 0.2 Mg/24 Hr) 1 patch TD Q7D@1000 [facility] Last Admin: 10/14/17 17:05 Dose: 1 patch Diphenhydramine HCl (Benadryl) 25 mg PO HS PRN PRN Reason: Insomnia Last Admin: 10/10/17 23:15 Dose: 25 mg Docusate Sodium (Colace) 100 mg PO BID [facility] Last Admin: 12/04/17 10:25 Dose: 100 mg Heparin Sodium (Porcine) (Heparin) 5,000 units SC Q8 [facility] PRN Reason: Protocol Last Admin: 10/15/17 13:28 Dose: 5,000 units Hydralazine HCl (Apresoline) 10 mg IVP Q6 PRN PRN Reason: FORSBP>=170&/ORDBP>=100MMHG Last Admin: 10/15/17 05:18 Dose: 10 mg Hydromorphone HCl (Dilaudid) 0.5 mg IVP Q4H PRN PRN Reason: Pain, moderate (4-7) Last Admin: 10/13/17 06:14 Dose: 0.5 mg Meropenem 1 gm/ Dextrose 100 mls @ 100 mls/hr IVPB Q8 [facility]EL[facility] PRN Reason: Protocol Stop: 10/23/17 10:16 Last Admin: 10/15/17 13:28 Dose: 100 mls/hr Insulin Human Lispro (Humalog Med) 0 units SC ACHS [facility] PRN Reason: Protocol Last Admin: 10/15/17 13:27 Dose: 3 units Ondansetron HCl (Zofran Inj) 4 mg IVP Q4H PRN PRN Reason: Nausea/Vomiting Last Admin: 10/11/17 22:04 Dose: 4 mg Sertraline HCl (Zoloft) 100 mg PO DAILY [facility] Last Admin: 10/15/17 10:25 Dose: 100 mg Valsartan (Diovan) 320 mg PO QPM [facility] - Labs Labs: 10/15/17 07:00 10/15/17 07:00 PT 12.9 SECONDS (9.4-12.5) H 10/12/17 06:20 INR 1.17 (0.93-1.08) H 10/12/17 06:20 APTT 29.1 Seconds (25.1-36.5) 10/12/17 06:20
--- NOTE | 2017-10-15 15:33 | NM ---
PROCEDURE: Nuclear Medicine Hepatobiliary Scan HISTORY: r/o bili leak COMPARISON: None available. TECHNIQUE: 8.0 mCi of technetium 99m Mebrofenin was administered intravenously. Planar images of the abdomen were obtained at 5 min intervals to 60 mins. Delayed images were also obtained. FINDINGS: LIVER: Timely and homogenous uptake. COMMON BILE DUCT: identified at 12 mins. GALLBLADDER: identified at 36 mins. SMALL BOWEL: Identified at 16 mins. IMPRESSION: Normal Hepatobiliary Scan. The cystic duct is patent.
--- NOTE | 2017-10-15 17:03 | US ---
HISTORY: Leg pain and swelling. Evaluate for DVT PHYSICIAN(S): Juventino Cohen MD. TECHNIQUE: Duplex sonography and color-flow Doppler with graded compression were used to evaluate the deep venous systems of both lower extremities. FINDINGS: The visualized deep venous systems of both lower extremities are sonographically normal and compressible. Normal wave forms and augmentation are seen. There is no sonographic evidence for deep venous thrombosis in the visualized segments of both lower extremities. IMPRESSION: No sonographic evidence for deep venous thrombosis in the visualized segments of both lower extremities.
--- NOTE | 2017-10-15 17:35 | CP.PCM.PN ---
Subjective - Date & Time of Evaluation Date of Evaluation: 10/15/17 Time of Evaluation: 11:00 - Subjective Subjective: Comfortable in bed, no fevers, less abdominal pain. Objective - Vital Signs/Intake and Output Vital Signs (last 24 hours): Temp Pulse Resp BP Pulse Ox 99.5 F 102 H 20 151/67 H 97 10/15/17 06:00 10/15/17 06:00 10/15/17 06:00 10/15/17 08:50 10/15/17 06:00 Intake and Output: 10/15/17 10/15/17 06:59 18:59 Intake Total 1570 Output Total 1300 Balance 270 - Medications Medications: Current Medications Acetaminophen (Tylenol 650 Mg Supp) 650 mg RC Q6H PRN PRN Reason: TEMP>=99.5F Last Admin: 10/14/17 01:32 Dose: 650 mg Acetaminophen (Tylenol 325mg Tab) 650 mg PO Q4 PRN PRN Reason: TEMP>=99.5F Last Admin: 10/15/17 05:14 Dose: 650 mg Alendronate Sodium (Fosamax) 70 mg PO Q7D [facility] Last Admin: 10/10/17 06:52 Dose: 70 mg Allopurinol (Zyloprim) 100 mg PO BID [facility] Last Admin: 10/15/17 10:25 Dose: 100 mg Aspirin (Aspirin Chewable) 81 mg PO DAILY [facility] Last Admin: 10/15/17 10:25 Dose: 81 mg Clonidine HCl (Catapres-Tts2 0.2 Mg/24 Hr) 1 patch TD Q7D@1000 [facility] Last Admin: 10/14/17 17:05 Dose: 1 patch Diphenhydramine HCl (Benadryl) 25 mg PO HS PRN PRN Reason: Insomnia Last Admin: 10/10/17 23:15 Dose: 25 mg Docusate Sodium (Colace) 100 mg PO BID [facility] Last Admin: 10/15/17 10:25 Dose: 100 mg Heparin Sodium (Porcine) (Heparin) 5,000 units SC Q8 [facility] PRN Reason: Protocol Last Admin: 10/15/17 05:18 Dose: 5,000 units Hydralazine HCl (Apresoline) 10 mg IVP Q6 PRN PRN Reason: FORSBP>=170&/ORDBP>=100MMHG Last Admin: 10/15/17 05:18 Dose: 10 mg Hydromorphone HCl (Dilaudid) 0.5 mg IVP Q4H PRN PRN Reason: Pain, moderate (4-7) Last Admin: 10/13/17 06:14 Dose: 0.5 mg Meropenem 1 gm/ Dextrose 100 mls @ 100 mls/hr IVPB Q8 [facility] PRN Reason: Protocol Stop: 10/23/17 10:16 Last Admin: 10/15/17 05:17 Dose: 100 mls/hr Dextrose/Sodium Chloride (Dextrose 5%/0.45% Ns 1000 Ml) 1,000 mls @ 60 mls/hr IV .[id number] [facility] Insulin Human Lispro (Humalog Med) 0 units SC ACHS [facility] PRN Reason: Protocol Last Admin: 10/15/17 08:36 Dose: Not Given Ondansetron HCl (Zofran Inj) 4 mg IVP Q4H PRN PRN Reason: Nausea/Vomiting Last Admin: 10/11/17 22:04 Dose: 4 mg Sertraline HCl (Zoloft) 100 mg PO DAILY [facility] Last Admin: 10/15/17 10:25 Dose: 100 mg - Labs Labs: 10/15/17 07:00 10/15/17 07:00 PT 12.9 SECONDS (9.4-12.5) H 10/12/17 06:20 INR 1.17 (0.93-1.08) H 10/12/17 06:20 APTT 29.1 Seconds (25.1-36.5) 10/12/17 06:20 - Constitutional Appears: Non-toxic - Head Exam Head Exam: NORMAL INSPECTION - ENT Exam ENT Exam: Mucous Membranes Moist - Neck Exam Neck Exam: absent: Meningismus - Respiratory Exam Respiratory Exam: Decreased Breath Sounds - Cardiovascular Exam Cardiovascular Exam: +S1, +S2 - GI/Abdominal Exam GI & Abdominal Exam: Soft. absent: Tenderness Assessment and Plan - Assessment and Plan (Free Text) Plan: Assessment Systemic Inflammatory response syndrome probably from acute pancreatitis S/P cholecystectomy with post-op fever R/O new onset sepsis HTN CAD S/P PCI dyslipidemia DM obesity with BMI 32 Plan on Merrem - follow up final culture results; reviewed CT A/P which showed fluid in the gallbladder fossa which could be post-op - will monitor if patient develops fever and will monitor WBC count
[2017-10-16] MEDS: Meropenem 1 GM in Dextrose 5% In Water 100 ML IVPB SCH (06:12)
[2017-10-16 07:36] LABS: ALB/GLOB RATIO 0.9 (1.1-1.8); ALKALINE PHOSPHATASE 69 U/L (38-126); ALT/SGPT 48 U/L (7-56); AMYLASE 54 U/L (35-125); AST/SGOT 46 U/L (14-36); BILIRUBIN,DIRECT 0.6 mg/dL (0.0-0.4); BILIRUBIN,TOTAL 0.6 mg/dL (0.2-1.3); BLOOD UREA NITROGEN 15 mg/dL (7-21); CALCIUM 8.2 mg/dL (8.4-10.5); CARBON DIOXIDE 20 mmol/L (21-33); CHLORIDE 107 mmol/L (98-107); GFR AFRICAN-AMERICAN > 60; GLUCOSE,RANDOM 92 mg/dL (70-110); LIPASE 166 U/L (23-300); MAGNESIUM 1.8 mg/dL (1.7-2.2); PHOSPHOROUS 2.7 mg/dL (2.5-4.5); POTASSIUM 3.9 mmol/L (3.6-5.0); SODIUM 141 mmol/L (132-148); TOTAL PROTEIN 7.1 g/dL (5.8-8.3)
--- NOTE | 2017-10-16 08:25 | CP.PCM.PN ---
Subjective - Date & Time of Evaluation Date of Evaluation: 10/16/17 Time of Evaluation: 08:22 - Subjective Subjective: Surgery Progress Note for Dr. He Pt seen and examined at bedside. Pt denied acute overnight events. Pt pain is well controlled. Pt is tolerating diet. Pt BP remained elevated overnight. Pt denied CP, SOB, nausea, vomiting, diarrhea, constipation, abdominal pain, fever , chills, or dizziness. Objective - Vital Signs/Intake and Output Vital Signs (last 24 hours): Temp Pulse Resp BP Pulse Ox 98.5 F 97 H 20 205/97 H 98 10/16/17 00:01 10/16/17 02:47 10/16/17 00:01 10/16/17 02:47 10/16/17 00:01 Intake and Output: 10/16/17 10/16/17 06:59 18:59 Intake Total 355 Output Total 80 Balance 275 - Medications Medications: Current Medications Acetaminophen (Tylenol 650 Mg Supp) 650 mg RC Q6H PRN PRN Reason: TEMP>=99.5F Last Admin: 10/14/17 01:32 Dose: 650 mg Acetaminophen (Tylenol 325mg Tab) 650 mg PO Q4 PRN PRN Reason: TEMP>=99.5F Last Admin: 10/15/17 05:14 Dose: 650 mg Alendronate Sodium (Fosamax) 70 mg PO Q7D [facility] Last Admin: 10/10/17 06:52 Dose: 70 mg Allopurinol (Zyloprim) 100 mg PO BID [facility] Last Admin: 10/15/17 19:06 Dose: 100 mg Aspirin (Aspirin Chewable) 81 mg PO DAILY [facility] Last Admin: 10/15/17 10:25 Dose: 81 mg Clonidine HCl (Catapres-Tts2 0.2 Mg/24 Hr) 1 patch TD Q7D@1000 [facility] Last Admin: 10/14/17 17:05 Dose: 1 patch Diphenhydramine HCl (Benadryl) 25 mg PO HS PRN PRN Reason: Insomnia Last Admin: 10/10/17 23:15 Dose: 25 mg Docusate Sodium (Colace) 100 mg PO BID [facility] Last Admin: 10/15/17 19:06 Dose: 100 mg Heparin Sodium (Porcine) (Heparin) 5,000 units SC Q8 [facility] PRN Reason: Protocol Last Admin: 10/16/17 06:11 Dose: 5,000 units Hydralazine HCl (Apresoline) 10 mg IVP Q6 PRN PRN Reason: FORSBP>=170&/ORDBP>=100MMHG Last Admin: 10/16/17 01:32 Dose: 10 mg Hydromorphone HCl (Dilaudid) 0.5 mg IVP Q4H PRN PRN Reason: Pain, moderate (4-7) Last Admin: 10/13/17 06:14 Dose: 0.5 mg Meropenem 1 gm/ Dextrose 100 mls @ 100 mls/hr IVPB Q8 [facility] PRN Reason: Protocol Stop: 10/23/17 10:16 Last Admin: 10/16/17 06:12 Dose: 100 mls/hr Insulin Human Lispro (Humalog Med) 0 units SC ACHS [facility] PRN Reason: Protocol Last Admin: 10/15/17 22:45 Dose: Not Given Ondansetron HCl (Zofran Inj) 4 mg IVP Q4H PRN PRN Reason: Nausea/Vomiting Last Admin: 10/11/17 22:04 Dose: 4 mg Sertraline HCl (Zoloft) 100 mg PO DAILY [facility] Last Admin: 10/15/17 10:25 Dose: 100 mg Valsartan (Diovan) 320 mg PO QPM [facility] Last Admin: 10/15/17 19:06 Dose: 320 mg - Labs Labs: 10/15/17 07:00 10/16/17 06:15 PT 12.9 SECONDS (9.4-12.5) H 10/12/17 06:20 INR 1.17 (0.93-1.08) H 10/12/17 06:20 APTT 29.1 Seconds (25.1-36.5) 10/12/17 06:20 - Constitutional Appears: No Acute Distress - Head Exam Head Exam: NORMAL INSPECTION - Eye Exam Eye Exam: Normal appearance - ENT Exam ENT Exam: Normal Exam - Neck Exam Neck Exam: Normal Inspection - Respiratory Exam Respiratory Exam: NORMAL BREATHING PATTERN. absent: Accessory Muscle Use, Respiratory Distress - Cardiovascular Exam Cardiovascular Exam: RRR. absent: Gallop, Rubs, Murmur - GI/Abdominal Exam GI & Abdominal Exam: Soft. absent: Distended, Guarding, Tenderness, Rebound Additional comments: Neo drain with 80 cc SS output over 12 hrs, no erthyema, discharge, or TTP at drain site. incisions c/d/i. - Extremities Exam Extremities Exam: Normal Inspection - Neurological Exam Neurological Exam: Alert, Awake, Oriented x3 - Skin Skin Exam: Dry, Intact, Normal Color, Warm Assessment and Plan - Assessment and Plan (Free Text) Assessment: 72F with gallstone pancreatitis; s/p lap geneva, POD#4 Plan: - Diet advanced as tolerated by patient - Encourage OOB, IS - H/H stable, cont to monitor - Cultures show no growth after 48 hrs - cont IV ABX - HTN management per primary - d/w Dr. Neri Patterson, PGY1
[2017-10-16] MEDS: Insulin Lispro (humaLOG) MEDIUM Coverage SC SCH ×4 (08:57→22:31)
--- NOTE | 2017-10-16 09:56 | PQF ANEMIA ---
This form is a permanent part of the medical record Dr. Cutler, Patient admitted with stable H/H of 11.2 and 34.5. H/H dropping to 8.7 and 29.0 Please document specifically type and severity of anemia for which patient received 2 UPRBC after surgery. Clarification of your documentation is requested to better reflect the severity of illness and intensity of treatment of your patient. Indicators present [x] Anemia [x] Drop in H&H from 11.2 and 34.5 to 8.7 and 29.0 [] Hypotension [] GI Bleed [x] Transfusion(s) 2 UPRBC [] Acute bleed other sites [] Tachycardia [] Surgical Procedure Blood Loss (expected not a complication) Other:[] Location in the medical record that reflects the above clinical findings: [] Treatment Provided: [] PHYSICIAN'S RESPONSE Based on your medical judgment of the clinical indicators outlined above, are you treating this patient for a known or suspected: [] Acute blood loss anemia [] Chronic blood loss anemia [] Acute on Chronic blood loss anemia [] Anemia due to malignancy [] Anemia due to chemotherapy or radiation therapy [] Anemia of Chronic Disease, please specify: [] [] Other, please indicate type of anemia []____ [] If Unable to Determine, please check the box, sign and date. Present On Admission (POA) Indicator: [] Present at the time of admission [] Not present at the time of admission [] Clinically Undetermined In responding to this query, please exercise your independent professional judgment. The fact that a question is asked does not imply that any particular answer is desired or expected. Thank you for your clarification on this documentation. If you have any questions please call:[ ] * Thank you, [ ]Angela Hood [facility] #[id number] biologist [place]
[2017-10-16] MEDS: Metoprolol Succinate 100 mg XL Tab PO SCH (14:59)
--- NOTE | 2017-10-16 16:03 | CP.PCM.PN ---
Subjective - Date & Time of Evaluation Date of Evaluation: 10/16/17 Time of Evaluation: 16:01 - Subjective Subjective: Follow up Nephrology Consultation Note Assessment: Stable Acute Kidney Injury (N17.9) likely hemodynamic due to acute illness: improved Diabetic chronic Kidney Disease (E11.22) Hypertensive Chronic Kidney Disease (I12.9) Chronic Kidney Disease (N18.3) Stage 3 (baseline cr 1.1) Anemia HTN (I12.9) Hypocalcemia gallstone pencreatitis s/p lap geneva urine retention s/p nichols Plan No acute need for renal replacement therapy at this time. renal function improved Hypertension control with meds as ordered. resume her valsartan 320 mg. added norvasc 5 mg/day. sec htn w/up with renin, aldosterone, metanephrine and renal artery doppler Monitor Input/Output, daily weights and renal function with basic metabolic panel Check urine spot protein/creatinine and albumin/creatinine ratio, Check for 25-OH vitamin D (level as 31), iPTH pending Dose meds/antibiotics for improved GFR. Avoid fleets enema/magnesium based laxatives. Avoid nephrotoxins/NSAIDs/IV iodinated contrast (unless needed emergently) Glycemic control Further work up for as per primary team Thanks for allowing me to participate in care of your patient. Will follow patient with you. Please call if any Qs Dr Paul Dumont Office: [phone] Subjective: Noted events overnight. Patients feels okay. Denies chest pain, palpitation, shortness of breath, leg swelling. No new complaints has nichols family bedside and helped in occ[place] interpretation Physical Examination: General Appearance: Comfortable, in no acute respiratory distress, co-operative . Vitals reviewed and noted as below Head; Atraumatic, normocephalic ENT: no ulcers no thrush. Tongue is midline. Oropharynx: no rash or ulcers. EYES: Pupils are equal, round and reactive to light accommodation. Eye muscles and extraocular movement intact. Sclera is anicteric. Neck; supple no lymphadenopathy, no thyromegaly or bruit Lungs: Normal respiratory rate/effort. Breath sounds bilateral equal and clear Heart: Normal rate. s1s2 normal. No rub or gallop. Extremities: no edema. No varicose veins Neurological: Patient is alert, awake and oriented to person, place and time. No focal deficit. Strength bilateral appropriate and equal Skin: Warm and dry. Normal turgor. No rash. Palpitation: Normal elasticity for age Abdomen: Abdomen is soft. Bowel sounds +. There is no abdominal tenderness, no guarding/rigidity no organomegaly. RUQ LISA drain+ Psych: normal insight and normal affect/mood MSK: no joint tenderness or swelling. Digits and nails normal, no deformity : kidney or bladder not palpable. Labs/imaging reviewed. Past medical history, past surgical history, family history, social history, allergy reviewed and noted as below Family hx: no hx of CKD. Rest non-contributory CT abdom: renal unremarkable UA trace protein Objective - Vital Signs/Intake and Output Vital Signs (last 24 hours): Temp Pulse Resp BP Pulse Ox 99.0 F 88 20 202/99 H 97 10/16/17 07:30 10/16/17 14:59 10/16/17 07:30 10/16/17 14:59 10/16/17 07:30 Intake and Output: 10/16/17 10/16/17 06:59 18:59 Intake Total 355 360 Output Total 80 Balance 275 360 - Medications Medications: Current Medications Acetaminophen (Tylenol 650 Mg Supp) 650 mg RC Q6H PRN PRN Reason: TEMP>=99.5F Last Admin: 10/14/17 01:32 Dose: 650 mg Acetaminophen (Tylenol 325mg Tab) 650 mg PO Q4 PRN PRN Reason: TEMP>=99.5F Last Admin: 10/15/17 05:14 Dose: 650 mg Alendronate Sodium (Fosamax) 70 mg PO Q7D [facility] Last Admin: 10/10/17 06:52 Dose: 70 mg Allopurinol (Zyloprim) 100 mg PO BID [facility] Last Admin: 10/16/17 11:47 Dose: 100 mg Amlodipine Besylate (Norvasc) 5 mg PO DAILY [facility] Last Admin: 10/16/17 11:48 Dose: 5 mg Aspirin (Aspirin Chewable) 81 mg PO DAILY [facility] Last Admin: 10/16/17 11:48 Dose: 81 mg Clonidine HCl (Catapres-Tts2 0.2 Mg/24 Hr) 1 patch TD Q7D@1000 [facility] Last Admin: 10/14/17 17:05 Dose: 1 patch Diphenhydramine HCl (Benadryl) 25 mg PO HS PRN PRN Reason: Insomnia Last Admin: 10/10/17 23:15 Dose: 25 mg Docusate Sodium (Colace) 100 mg PO BID [facility] Last Admin: 10/16/17 11:47 Dose: 100 mg Heparin Sodium (Porcine) (Heparin) 5,000 units SC Q8 [facility] PRN Reason: Protocol Last Admin: 10/16/17 14:59 Dose: 5,000 units Hydralazine HCl (Apresoline) 10 mg IVP Q6 PRN PRN Reason: FORSBP>=170&/ORDBP>=100MMHG Last Admin: 10/16/17 01:32 Dose: 10 mg Hydromorphone HCl (Dilaudid) 0.5 mg IVP Q4H PRN PRN Reason: Pain, moderate (4-7) Last Admin: 10/13/17 06:14 Dose: 0.5 mg Insulin Human Lispro (Humalog Med) 0 units SC ACHS [facility] PRN Reason: Protocol Last Admin: 10/16/17 12:51 Dose: Not Given Levofloxacin (Levaquin) 500 mg PO DAILY [facility] PRN Reason: Protocol Stop: 10/20/17 10:01 Metoprolol Succinate (Toprol Xl) 200 mg PO BRK [facility] Last Admin: 10/16/17 14:59 Dose: 200 mg Ondansetron HCl (Zofran Inj) 4 mg IVP Q4H PRN PRN Reason: Nausea/Vomiting Last Admin: 10/11/17 22:04 Dose: 4 mg Pantoprazole Sodium (Protonix Ec Tab) 20 mg PO 0600 [facility] Sertraline HCl (Zoloft) 100 mg PO DAILY [facility] Last Admin: 10/16/17 11:49 Dose: 100 mg Tramadol HCl (Ultram) 50 mg PO TID PRN PRN Reason: Pain, moderate (4-7) Valsartan (Diovan) 320 mg PO QPM [facility] Last Admin: 10/15/17 19:06 Dose: 320 mg - Labs Labs: 10/15/17 07:00 10/16/17 06:15 PT 12.9 SECONDS (9.4-12.5) H 10/12/17 06:20 INR 1.17 (0.93-1.08) H 10/12/17 06:20 APTT 29.1 Seconds (25.1-36.5) 10/12/17 06:20
--- NOTE | 2017-10-16 16:23 | PN ---
DATE: 10/16/2017 SUBJECTIVE: The patient is seen earlier. The patient's [id number] is in the room. They are more eager to get the patient home. The patient wants to go home. She no longer has fevers. ALLERGIES: THE PATIENT IS ALLERGIC TO PENICILLIN. PHYSICAL EXAMINATION: VITAL SIGNS: Temperature 99, blood pressure 180/80 and this morning it came down to 159/81, respiratory rate 20, and heart rate of 92. HEENT: Unremarkable. NECK: Supple. LUNGS: Decreased breath sounds. HEART: Normal S1 and S2. ABDOMEN: Soft. LABORATORY DATA: Examination cultures are negative. White count of 11,300. Chemistries are noted. Procalcitonin of 1.05 on 3rd. Urinalysis is noted and serology is noted. Microbiology is negative. MEDICATIONS: Currently reviewed medications, she is on meropenem. This is her day #3 of meropenem. ASSESSMENT AND PLAN: A 72-year-old [place] Citizen female with sepsis from postprocedure, status post cholecystectomy, postprocedure healthcare-associated pneumonia with acute pancreatitis, now eating and drinking, may be able to switch to p.o. Levaquin upon discharge at 500 mg once daily x3-5 days. Case discussed with case management and nurse practitioners. We will check on the EKG. Her EKG has QTc of 441. We will follow closely with you. Another QTc of 444. Levaquin at 500 mg x3 days. Review of the CAT scans of the abdomen and pelvis is reviewed, shows associated consolidations and biliary scan is negative. Vick Sinclair MD
--- NOTE | 2017-10-16 18:22 | OP ---
PROCEDURE DATE: 10/12/2017 She is admitted on 10/09/2017 to room 374, bed 2. She is operated on 10/12/2017. PREOPERATIVE DIAGNOSES: 1. Gallstone pancreatitis. 2. Hypertensive coronary artery disease. 3. Diabetes mellitus, [id number]. 4. Hepatitis C virus. POSTOPERATIVE DIAGNOSES: 1. Gallstone pancreatitis. 2. Hypertensive coronary artery disease. 3. Diabetes mellitus, [id number]. 4. Hepatitis C virus. PROCEDURE: ON 10/12/2017 is; 1. Laparoscopic cholecystectomy. 2. Attempted intraoperative cholangiogram. SURGEON: Dave He MD. TARIFF COMPILING CLERK: Dr. Venu Martinez DO, PGY-2. TYPE OF ANESTHESIA: General endotracheal - Marcaine 0.5-18 mL. ANESTHESIA ADMINISTERED BY: Karl Siu DO. OPERATIVE INDICATION: The patient is a 72-year-old [place] female (Malay speaking) with recent onset of severe upper abdominal and back pain and upon bringing the patient to the Emergency Room, she was found to have lipase of 53,000 and white count of 22,000, with elevated liver enzymes and cholangitis. The ultrasound of the gallbladder demonstrates multiple stones, dilated duct, and the patient is treated conservatively and this surgeon consulted for recommendations. DESCRIPTION OF PROCEDURE: The patient is placed on the table in a supine manner following the time-out procedure, undergoes the induction of general anesthesia and the insertion of an endotracheal tube. Sequential compression devices are placed on her lower extremities and the abdomen is prepped with Hibiclens and chlorhexidine preparation and the patient is aseptically draped. The umbilicus is elevated on towel clips, infiltrated with the bupivacaine as all the port sides in this case. Incision made and the Veress needle inserted into the abdomen and the abdomen insufflated with carbon dioxide gas to 15 mmHg pressure and the needle removed and replaced with a 12 mm VersaPort with visualizing laparoscope inside the port. The abdomen is now explored and multiple adhesions seen to the right upper quadrant and right subxiphoid 12 mm port is inserted under direct vision and two 5 mm ports placed in the right upper quadrant at the level of the umbilicus. The table is rotated to the left in a reverse Trendelenburg position and adhesions are carefully lysed from the gallbladder and surrounding tissues with electrocoagulating cautery and tension. The gallbladder is aspirated, the contents submitted for culture and grasped with Prestige clamps and the michael hepatis dissected carefully and found to be markedly inflamed, presumptively secondary to recurring infections and the adhesions demonstrating same. The cystic duct is dissected free. It is proximally doubly Hemoclipped at the gallbladder edge. An incision made and the cystic duct opened and multiple tiny granular black pigmented stones fall out approximately 10 to 15 in number, each approximately 2 mm or 3 mm in size. The cystic duct is now cannulated and lavaged multiple times and attempts to pass the catheter are met with hard-grade obstruction, presumptively an impacted set of stones. Attempts for the next 30 minutes were made to obtain this cholangiogram as the patient did have pancreatitis on admission and could not be done at this point and even after milking the cystic duct multiple times and lavaging more stones out of it, the cholangiogram could not be obtained. The catheter is removed. The cystic duct is now triply Hemoclipped and transected above the clips and the cystic artery is dissected free, doubly Hemoclipped on either side and transected, and the gallbladder removed from the liver bed in a prograde fashion utilizing electrocoagulating cautery. Very inflamed liver bed is encountered and extensive electrocoagulation is employed at this point and the gallbladder was finally removed, placed in an EndoCatch and brought out through the subxiphoid port site. The liver bed is still oozing requires more electrocoagulation and using Endo Avitene and Surgicel placed into the wound, the bleeding is controlled. At this point, estimated bleeding is approximately 200 mL and a Neo drain is inserted through the right lateral 5 mm port site, secured to the skin with 2-0 Surgidac polyester suture, and placed in the hepatorenal space of [place]. The patient is placed level. The area is now lavaged with multi liters of saline until the return is now clear and the 2 midline sites are closed with 2-0 PDS interrupted sutures, two per incision, using the exit closure device. The subcutaneous skin is closed with Biosyn subcuticular closure and Steri-Strips and dry dressings are applied. The patient is awakened, extubated, and transported to the recovery room in a satisfactory condition. Sponge, instrument and suture count was verified as correct at the end of the procedure. Estimated blood loss during this procedure is less than 200 mL of blood. The surgical assistants were present throughout the procedure from beginning to end and were absolutely essential in exposing and performing dissections and helping in remove the gallbladder. Dave He MD
[2017-10-16] MEDS ORDERED: Ergocalciferol 50,000 Intl Units Cap PO SCH (21:30)
--- NOTE | 2017-10-17 03:37 | PN ---
DATE: 10/16/2017 SUBJECTIVE: The patient is seen in room 565, bed 2. The patient is out of bed to chair with the patient's [id number] at bedside. The patient appears to be happy and smiling. The patient was able to stand up without any assistance. Overnight nurse's notes were reviewed. The patient had intermittently elevated blood pressure. The patient was given a dose of clonidine by the house doctor yesterday for a blood pressure of 205/97. The patient tolerated diet. PHYSICAL EXAMINATION: VITAL SIGNS: T-max 98.9, heart rate 78, 72, 93, 78, and 88, blood pressure in the last 24 hours 189/91, 210/91, 191/97, 151/67, 140/68, 159/81, 187/89, 184/84, 221/112, 205/97, 159/81, and 179/89. Respiration 20, O2 sat 97-97%. HEAD: Examination normocephalic, atraumatic. HEENT: Examination shows pinkish pale conjunctivae. Anicteric sclerae. No oropharyngeal lesion. No neck rigidity. CHEST: Examination kyphosis. LUNGS: Examination shows occasional rhonchi. No crackles, rales or wheezing. CARDIOVASCULAR: Shows S1, S2, regular rhythm. ABDOMEN: Soft, protuberant. Positive bowel sound, positive diffuse voluntary guarding. Positive tenderness. Positive right-sided LISA drain, draining very minimal amount of whitish to reddish color drain. GENITALIA: Female. RECTAL: Deferred. EXTREMITIES: Shows positive PADDY stockings, positive swelling and edema of the lower extremity. MUSCULOSKELETAL: Examination shows a body mass index of 35.2. Cranial nerves II-XII limited. Gait examination not tested. VASCULAR: Examination palpable pulses. DIAGNOSTICS: CBC from today is not available yet. Sodium 141, potassium 3.9, chloride 107, CO2 20, anion gap 18, BUN 15, creatinine 1.0, GFR greater than 60, glucose 92, calcium is 8.2, magnesium is 1.8, phosphorus 2.7, AST 46, rest of the LFTs are normal. Vitamin D 25-hydroxy is 31.6 which is low. Procalcitonin level is slightly elevated. Amylase and lipase are negative. IMPRESSION AND PLAN: 1. Acute gallstone pancreatitis, hepatitis transaminitis. 2. Hypertensive cardiac coronary artery disease. 3. Status post laparoscopic cholecystectomy and attempted intraoperative cholangiogram postoperative day 5. 4. Uncontrolled hypertension. 5. Tachycardia. 6. Gait dysfunction. 7. Postoperative fever. 8. Postoperative anemia with decreasing hemoglobin/hematocrit. 9. Status post packed red blood cell transfusion x2. 10. Deconditioning. 11. Leukocytosis. 12. Granulocytosis. 13. Elevated reticulocyte count. 14. Status post acute kidney injury. 15. Hypocalcemia. 16. Hypomagnesemia. 17. Transaminitis. 18. Hyperprolactinemia. 19. Hypovitaminosis D. 20. Type 2 diabetes mellitus with hemoglobin A1c of 6.7. 21. Hyperuricemia. 22. Questionable iron deficiency anemia. 23. Proteinuria, microscopic hematuria, pyuria, bacteriuria. 24. 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 25. Morbid obesity with elevated body mass index of 35.2. 26. Cardiomegaly. 27. Chronic cholecystitis and cholelithiasis. 28. Hypertensive cardiovascular disease. 29. Status post acute kidney injury. 30. Diabetic chronic kidney disease and hypertensive chronic kidney disease. 31. Urinary retention. PLAN: At this time, the patient still has a LISA drain. The patient's case was referred to Employment Case Manager for Transitional Care Unit. The patient has been accepted to , but no bed available. The patient's [id number] and the family has categorically and totally declined for the patient to go to TCU and they would prefer the patient to go home. The patient's family also declined subacute rehab. We are still waiting for Dr. He to clear the patient for discharge. The patient was seen by Infectious Disease. Their recommendation was noted. The patient has been ordered repeat labs for the morning. The patient has been ordered aldosterone, metanephrine, PTH and repeat CBC in the morning. CURRENT CONSULTATION: 1. Cardiology. 2. Infectious Disease. 3. Nephrology. 4. Gastroenterology. 5. Surgery. CURRENT MEDICATIONS: Hydralazine 10 mg IV q. 6 p.r.n., Ecotrin 81 mg daily, Benadryl 25 mg at bedtime p.r.n., clonidine patch 0.2 mg weekly, Colace 100 mg twice a day, Dilaudid 0.5 mg IV q. 4 p.r.n., the patient is resumed on Diovan 320 mg daily by Nephrology, the patient started on Drisdol 50,000 weekly, Fosamax 70 mg weekly, heparin 5000 subcutaneous q. 8, Humalog medium dose sliding scale coverage a.c. and at bedtime, the patient was given a dose of Lasix 20 mg x1 IV push. The patient is started on Levaquin 500 mg p.o. daily for 3 days, Norvasc 5 mg daily by Nephrology, Protonix 20 mg daily, the patient is on Toprol XL 200 mg daily, Tylenol was 650 mg suppository p.o. q. 6 p.r.n., tramadol or Ultram 50 mg t.i.d. p.r.n., which is ordered by the surgery team, Zofran 4 mg IV q. 4 p.r.n., Zoloft 100 mg daily, allopurinol 100 mg twice a day. The patient was seen by Medical Coding Technician. The patient has been ordered renal artery Doppler, incentive spirometry, heart-healthy diet, out of bed, PADDY stockings, SCDs, physical therapy, occupational therapy ordered, ambulation therapy ordered. The patient at present will be considered for discharge home with [facility] home PT. As the patient and the patient's family has declined Transitional Care Unit and subacute rehab. The patient and the patient's family understand that TCU and subacute rehab will be most likely beneficial to the patient's recovery phase, but the patient and the patient's family persistently categorically has refused and declined TCU and subacute rehab. At present, we are awaiting for further recommendation by surgery and surgical clearance and once the patient is cleared by surgery, we will discharge the patient to home with the referral to [facility] Health aid home PT. The patient will be discharged once cleared by surgery. The patient has already been cleared by Infectious Disease for discharge clearance. The patient has been advised that once the patient is cleared by surgery, the patient will be considered for discharge, which was explained to the patient and the patient's family who was present at the bedside. Dictated and electronically signed, not read. Signing off, Cecil Cutler MD [facility] # [id number]
[2017-10-17] MEDS ORDERED: Pantoprazole 20 mg EC Tab PO SCH (06:00)
[2017-10-17 06:36] LABS: BASO # 0.03 K/mm3 (0.0-2.0); BASO % 0.3 % (0.0-3.0); EOS # 0.6 (0.0-0.7); EOS % 5.8 % (1.5-5.0); GRAN # 6.91 (1.4-6.5); GRAN % 69.7 % (50.0-68.0); HEMATOCRIT 36.5 % (36.0-48.0); LYMPH # 1.7 (1.2-3.4); LYMPH % 17.2 % (22.0-35.0); MEAN CELL VOLUME 91.7 fl (80.0-105.0); MEAN CORPUSCULAR HEMOGLOBIN 29.9 pg (25.0-35.0); MEAN CORPUSCULAR HGB CONC 32.6 g/dl (31.0-37.0); MEAN PLATELET VOLUME 10.9 fl (7.0-11.0); MONO # 0.7 (0.1-0.6); RED CELL DISTRIBUTION WIDTH 15.7 % (11.5-14.5); WHITE BLOOD COUNT 9.9 10^3/ul (4.5-11.0)
[2017-10-17 07:17] LABS: ALB/GLOB RATIO 0.9 (1.1-1.8); ALKALINE PHOSPHATASE 86 U/L (38-126); ALT/SGPT 34 U/L (7-56); AST/SGOT 47 U/L (14-36); BILIRUBIN,DIRECT 0.7 mg/dL (0.0-0.4); BILIRUBIN,TOTAL 0.7 mg/dL (0.2-1.3); BLOOD UREA NITROGEN 20 mg/dL (7-21); CARBON DIOXIDE 25 mmol/L (21-33); CHLORIDE 105 mmol/L (98-107); GFR AFRICAN-AMERICAN > 60; GLUCOSE,RANDOM 85 mg/dL (70-110); MAGNESIUM 1.7 mg/dL (1.7-2.2); PHOSPHOROUS 3.6 mg/dL (2.5-4.5); POTASSIUM 3.6 mmol/L (3.6-5.0); SODIUM 142 mmol/L (132-148); TOTAL PROTEIN 7.8 g/dL (5.8-8.3)
[2017-10-17] MEDS ORDERED: Potassium Chloride 20 mEq ER Tab PO ONE (07:54)
[2017-10-17 08:00] VITALS: RESP 19; TEMP 98.2; O2SAT 94
[2017-10-17] MEDS: Insulin Lispro (humaLOG) MEDIUM Coverage SC SCH ×2 (08:27→12:15)
[2017-10-17] MEDS: Metoprolol Succinate 100 mg XL Tab PO SCH (08:28)
--- NOTE | 2017-10-17 09:14 | PQF SEPSIS ---
This form is a permanent part of the medical record Dr. Cutler, Dr. Sinclair PN of 10/16 lists sepsis and healthcare associated pneumonia as diagnosis for this patient. They do not appear in your documentation. Please document if you concur or are they ruled out ? Clarification of your documentation is requested to better reflect the severity of illness and intensity of treatment of your patient. Indicators present [] Temp < 96.8 or > 100.4 [] WBC count > 12,000/mm3 or <000/mm3 or 10% immature neutrophils [] Heart Rate > 90 [] Respiratory Rate > 20 [] Fever or hypothermia [] Chills [] Positive blood cultures [] Hypotension [] Metabolic acidosis (Elevated lactate level, anion gap or reduced blood pH) [] Acute confusion /Altered Mental Status [] Shock [] Other: [] Location in the medical record that reflects the above clinical findings: [] Treatment Provided: [] PHYSICIAN'S RESPONSE Based on your medical judgment of the clinical indicators outlined above, are you treating this patient for a known or suspected: [] Sepsis / Septicemia Please specify organism if known [] [] SIRS (Systemic Inflammatory Response Syndrome) [] Severe Sepsis (Sepsis with Associated Organ Dysfunction) [] Fever of Unknown Origin [] Other, please indicate: [] [] If Unable to Determine, please check the box, sign and date. Present On Admission (POA) Indicator: [] Present at the time of admission [] Not present at the time of admission [] Clinically Undetermined In responding to this query, please exercise your independent professional judgment. The fact that a question is asked does not imply that any particular answer is desired or expected. Thank you for your clarification on this documentation. If you have any questions please call:[ ] * Thank you, [ ]Angela Hood [facility] #[id number] gill box tender FRANCK
--- NOTE | 2017-10-17 09:16 | US ---
PROCEDURE: Bilateral renal artery duplex ultrasound. CLINICAL HISTORY: Renal artery stenosis. Uncontrolled hypertension. Evaluate for renovascular hypertension. PHYSICIAN(S): Juventino Cohen M.D. TECHNIQUE: Duplex sonography with color-flow Doppler was used to evaluate the visualized segments of the main renal arteries. The patient was evaluated in a fasting state. Imaging in a supine and decubitus position was performed. Limited evaluation of the arcuate waveforms and resistive indices were performed. FINDINGS: Visualization of the main renal arteries is somewhat limited due to tortuosity. . The kidneys are normal in size, shape, and location. The right kidney measures 12.1cm in length and the left kidney measures 11.8cm in length. No solid renal masses, abnormal calcifications, or hydronephrosis is seen. The main right renal artery is visualized in segments from the aorta to the hilum.. The peak systolic velocity in the right main renal artery is 89 cm/sec. This is consistent with a 0 to 49% stenosis in the main right renal artery. The arcuate waveforms are normal. The resistive index is normal. The main left renal artery is also only visualized in segments from the aorta to the hilum. The peak systolic velocity in the main left renal artery is 87cm/sec. This corresponds to a 0 to 49% stenosis in the main left renal artery. The arcuate waveforms and resistive indices are normal. IMPRESSION: 1. The main renal arteries are only visualized in segments. If clinical suspicion for renal artery stenosis is high, additional imaging with CTA, MRA, or conventional arteriogram can be considered. 2. No sonographically significant stenosis is identified. 3. The kidneys are normal and symmetric in size. There are no solid renal masses, abnormal calcifications or hydronephrosis noted.
[2017-10-17 09:24] VITALS: BP 131/65; PULSE 70
[2017-10-17] MEDS ORDERED: Magnesium Oxide 400 mg Tab UD PO SCH (10:00)
[2017-10-17] MEDS ORDERED: levoFLOXacin 500 MG TAB PO SCH (10:00)
--- NOTE | 2017-10-17 10:15 | CP.PCM.PN ---
Subjective - Date & Time of Evaluation Date of Evaluation: 10/17/17 Time of Evaluation: 09:00 - Subjective Subjective: PGY-[address] Cutler Pt son and daughter in law translating. Pt denies any acute complained. Tolerating food and +BM last evening, no straining, no dysuria, no abdominal pain Objective - Vital Signs/Intake and Output Vital Signs (last 24 hours): Temp Pulse Resp BP Pulse Ox 98.2 F 70 19 131/65 94 L 10/17/17 07:30 10/17/17 09:21 10/17/17 07:30 10/17/17 09:21 10/17/17 07:30 Intake and Output: 10/17/17 10/17/17 06:59 18:59 Output Total 70 Balance -70 - Medications Medications: Current Medications Acetaminophen (Tylenol 650 Mg Supp) 650 mg RC Q6H PRN PRN Reason: TEMP>=99.5F Last Admin: 10/14/17 01:32 Dose: 650 mg Acetaminophen (Tylenol 325mg Tab) 650 mg PO Q4 PRN PRN Reason: TEMP>=99.5F Last Admin: 10/15/17 05:14 Dose: 650 mg Alendronate Sodium (Fosamax) 70 mg PO Q7D [facility] Last Admin: 10/10/17 06:52 Dose: 70 mg Allopurinol (Zyloprim) 100 mg PO BID [facility] Last Admin: 10/17/17 09:21 Dose: 100 mg Amlodipine Besylate (Norvasc) 5 mg PO DAILY [facility] Last Admin: 10/17/17 09:21 Dose: 5 mg Aspirin (Aspirin Chewable) 81 mg PO DAILY [facility] Last Admin: 10/17/17 09:20 Dose: 81 mg Clonidine HCl (Catapres-Tts2 0.2 Mg/24 Hr) 1 patch TD Q7D@1000 [facility] Last Admin: 10/14/17 17:05 Dose: 1 patch Diphenhydramine HCl (Benadryl) 25 mg PO HS PRN PRN Reason: Insomnia Last Admin: 10/10/17 23:15 Dose: 25 mg Docusate Sodium (Colace) 100 mg PO BID [facility] Last Admin: 10/17/17 09:20 Dose: 100 mg Ergocalciferol (Drisdol 50,000 Intl Units Cap) 1 cap PO Q7D [facility] Last Admin: 10/16/17 22:37 Dose: 1 cap Heparin Sodium (Porcine) (Heparin) 5,000 units SC Q8 [facility] PRN Reason: Protocol Last Admin: 10/17/17 05:23 Dose: 5,000 units Hydralazine HCl (Apresoline) 10 mg IVP Q6 PRN PRN Reason: FORSBP>=170&/ORDBP>=100MMHG Last Admin: 10/17/17 06:44 Dose: 10 mg Hydromorphone HCl (Dilaudid) 0.5 mg IVP Q4H PRN PRN Reason: Pain, moderate (4-7) Last Admin: 10/13/17 06:14 Dose: 0.5 mg Insulin Human Lispro (Humalog Med) 0 units SC ACHS [facility] PRN Reason: Protocol Last Admin: 10/17/17 08:27 Dose: Not Given Levofloxacin (Levaquin) 500 mg PO DAILY [facility] PRN Reason: Protocol Stop: 10/20/17 10:01 Last Admin: 10/17/17 09:20 Dose: 500 mg Magnesium Oxide (Mag-Ox) 400 mg PO BID [facility] Last Admin: 10/17/17 09:20 Dose: 400 mg Metoprolol Succinate (Toprol Xl) 200 mg PO BRK [facility] Last Admin: 10/17/17 08:28 Dose: 200 mg Ondansetron HCl (Zofran Inj) 4 mg IVP Q4H PRN PRN Reason: Nausea/Vomiting Last Admin: 10/11/17 22:04 Dose: 4 mg Pantoprazole Sodium (Protonix Ec Tab) 20 mg PO 0600 [facility] Last Admin: 10/17/17 05:23 Dose: 20 mg Sertraline HCl (Zoloft) 100 mg PO DAILY [facility] Last Admin: 10/17/17 09:20 Dose: 100 mg Tramadol HCl (Ultram) 50 mg PO TID PRN PRN Reason: Pain, moderate (4-7) Valsartan (Diovan) 320 mg PO QPM [facility] Last Admin: 10/16/17 18:30 Dose: 320 mg - Labs Labs: 10/17/17 06:00 10/17/17 06:00 PT 12.9 SECONDS (9.4-12.5) H 10/12/17 06:20 INR 1.17 (0.93-1.08) H 10/12/17 06:20 APTT 29.1 Seconds (25.1-36.5) 10/12/17 06:20 - Constitutional Appears: No Acute Distress - Head Exam Head Exam: ATRAUMATIC, NORMAL INSPECTION, NORMOCEPHALIC - Eye Exam Eye Exam: EOMI, Normal appearance, PERRL. absent: Scleral icterus - ENT Exam ENT Exam: Mucous Membranes Moist - Respiratory Exam Respiratory Exam: Clear to Ausculation Bilateral. absent: Rales, Rhonchi, Wheezes - Cardiovascular Exam Cardiovascular Exam: REGULAR RHYTHM, +S1, +S2 - GI/Abdominal Exam GI & Abdominal Exam: Soft, Tenderness (RUQ (surgical site)), Normal Bowel Sounds. absent: Guarding, Rigid Additional comments: LISA pain in place, serous - Extremities Exam Extremities Exam: absent: Calf Tenderness - Neurological Exam Neurological Exam: Alert, Awake, Oriented x3 - Psychiatric Exam Psychiatric exam: Normal Affect, Normal Mood - Skin Skin Exam: Dry, Warm Assessment and Plan - Assessment and Plan (Free Text) Plan: Ms Smith, 72 y/o [place] F, with CAD s/p PCI/stent, HTN, HLD, and DM2 who presents with severe abdominal pain and n/v x1 day, found likely to have acute gallstone pancreatitis. cholilithiasis may have spontanously passed and pt's cholestatic lab was trending better. Pt underwent laparoscopic cholecystectomy on 10/12. Post op noted to have LIANNA. Nichols was placed as pt was retaining urine on bladder scan. Creatinine trend reveals that pt may have some baseline ckd around stage 2 ( b/l cr around 1.5). She was found to have hepatitis C likely chronic not-active. sepsis from post-procedure, s/p lap geneva, Pneumonia with acute pancreatitis - improved Systemic Inflammatory response syndrome probably from acute pancreatitis R/O cholecystitis Acute gallstone pancreatitis s/p ABX: Aztreonam & Flagyl . Now swtich to Levaquin PO x 5d - dilaudid 0.5q4 pRN, docusate 100 BID - Zofran PRN; Tylenol PRN fever LIANNA on CKD 2 - could be post renal (urine retention) vs prerenal (Prior NPO) - resolved - nichols, i/o, bladder scan PRN - avoid nephrotoxic drugs for now - pending HIDA to r/o bile leak Hepatitis C Transaminitis - improving - Hep panel: +Hep C Ab - f/u genotype - HCV quant and viral load - not detected - Hold Lipitor, Fenofibrate Anemia, acute on chronic, s/p 1p RBC - continue monito H/H - B12: 432; Folate: 18; Iron: 55; Ferritin: 158; TIBC: 357; % Saturation: 15; Retic count: 2.37 Hx CAD - continue ASA 81 - Lipid panel: Trig 192, Chol 174, LDL 113, HDL 37 Hx DM2, A1C 6.7 - ISSS-lispro med Hx HTN, HLD - amlodipine 5 daily, Toprol Xl 200 AM, Valsartan 320 HS - hydralazine 10q6 PRN, clinidine 0.2 Mg/d patch q7 Depression - Zoloft 100mg PO QD Osteoporosis - Fosamax 70 mg PO Q7D Gout - Allopurinol 100 bid Constipation - colace 100 bid Prophylactic Measures - PTX/Heparin/SCDs/stockings/OOB FEN - Drisdol, mag-ox Discharge planning - OOB q shift - Son refused TCU/[facility] on several occasions. Family states that they will contact physical therapist for home PT themselves ([place] [phone]) and they will f/u PCP Dr Roberto Montes ([phone]) within 1 week s/p discharge S/R/D/w Dr. Cutler
--- NOTE | 2017-10-17 11:33 | CP.PCM.DIS ---
Provider - Provider Date of Admission: 10/09/17 05:03 Attending physician: Cecil Cutler MD Primary care physician: Roberto Chun MD Consults: ID = Dr Sinclair Nephro = Dr. Dumont Surgery = Dr. He GI = Dr. Worrell Time Spent in preparation of Discharge (in minutes): 50 Diagnosis - Discharge Diagnosis (1) Gall stone pancreatitis Status: Acute (2) LIANNA (acute kidney injury) Status: Acute (3) CKD (chronic kidney disease) stage 2, GFR 60-89 ml/min Status: Chronic (4) Sepsis Status: Acute (5) S/P laparoscopic cholecystectomy Status: Acute (6) Hepatitis C Status: Acute (7) Anemia Status: Acute (8) Lung nodule Status: Chronic (9) Diabetes Status: Acute (10) Pneumonia Status: Acute Hospital Course - Lab Results Lab Results: Micro Results 10/13/17 17:10 Blood Blood Culture - Preliminary NO GROWTH AFTER 3 DAYS 10/13/17 16:45 Blood Blood Culture - Preliminary NO GROWTH AFTER 3 DAYS 10/12/17 15:10 Gallbladder Gram Stain - Final 10/12/17 15:10 Gallbladder Tissue Culture - Final No growth. 10/13/17 17:30 Urine,Nair Urine Culture - Final No Growth (<1,000 CFU/ML) 10/09/17 07:00 Naris MRSA Culture (Admit) - Final MRSA NOT DETECTED Most Recent Lab Values WBC 9.9 10^3/ul (4.5-11.0) 10/17/17 06:00 RBC 3.98 10^6/uL (3.5-6.1) 10/17/17 06:00 Hgb 11.9 g/dL (12.0-16.0) L D 10/17/17 06:00 Hct 36.5 % (36.0-48.0) 10/17/17 06:00 MCV 91.7 fl (80.0-105.0) 10/17/17 06:00 MCH 29.9 pg (25.0-35.0) 10/17/17 06:00 MCHC 32.6 g/dl (31.0-37.0) 10/17/17 06:00 RDW 15.7 % (11.5-14.5) H 10/17/17 06:00 Plt Count 297 10^3/uL (120.0-450.0) 10/17/17 06:00 MPV 10.9 fl (7.0-11.0) 10/17/17 06:00 Gran % 69.7 % (50.0-68.0) H 10/17/17 06:00 Lymph % (Auto) 17.2 % (22.0-35.0) L 10/17/17 06:00 [place] % (Auto) 7.0 % (1.0-6.0) H 10/17/17 06:00 Eos % (Auto) 5.8 % (1.5-5.0) H 10/17/17 06:00 Baso % (Auto) 0.3 % (0.0-3.0) 10/17/17 06:00 Gran # 6.91 (1.4-6.5) H 10/17/17 06:00 Lymph # 1.7 (1.2-3.4) 10/17/17 06:00 [place] # 0.7 (0.1-0.6) H 10/17/17 06:00 Eos # 0.6 (0.0-0.7) 10/17/17 06:00 Baso # 0.03 K/mm3 (0.0-2.0) 10/17/17 06:00 Retic Count 2.37 % (0.5-1.5) H 10/10/17 08:10 PT 12.9 SECONDS (9.4-12.5) H 10/12/17 06:20 INR 1.17 (0.93-1.08) H 10/12/17 06:20 APTT 29.1 Seconds (25.1-36.5) 10/12/17 06:20 Sodium 142 mmol/L (132-148) 10/17/17 06:00 Potassium 3.6 mmol/L (3.6-5.0) 10/17/17 06:00 Chloride 105 mmol/L (98-107) 10/17/17 06:00 Carbon Dioxide 25 mmol/L (21-33) 10/17/17 06:00 Anion Gap 15 (10-20) 10/17/17 06:00 BUN 20 mg/dL (7-21) 10/17/17 06:00 Creatinine 1.0 mg/dl (0.7-1.2) 10/17/17 06:00 Est GFR ( Amer) > 60 10/17/17 06:00 Est GFR (Non-Af Amer) 54 10/17/17 06:00 POC Glucose (mg/dL) 150 mg/dL (65-110) H 10/17/17 10:59 Random Glucose 85 mg/dL (70-110) 10/17/17 06:00 Hemoglobin A1c 6.7 % (4.2-6.5) H 10/09/17 07:00 Lactic Acid 0.5 mmol/L (0.7-2.1) L 10/09/17 09:00 Uric Acid 6.5 mg/dL (2.5-6.2) H 10/09/17 07:00 Calcium 9.0 mg/dL (8.4-10.5) 10/17/17 06:00 Phosphorus 3.6 mg/dL (2.5-4.5) 10/17/17 06:00 Magnesium 1.7 mg/dL (1.7-2.2) 10/17/17 06:00 Iron 55 ug/dL (45-180) 10/10/17 Unknown TIBC 357 ug/dL (265-497) 10/10/17 Unknown % Saturation 15 % (20-55) L 10/10/17 Unknown Erythropoietin 31.1 mIU/mL (2.6-18.5) H 10/10/17 08:10 Ferritin 158.0 ng/mL 10/10/17 08:10 Total Bilirubin 0.7 mg/dL (0.2-1.3) 10/17/17 06:00 Direct Bilirubin 0.7 mg/dL (0.0-0.4) H 10/17/17 06:00 AST 47 U/L (14-36) H 10/17/17 06:00 ALT 34 U/L (7-56) 10/17/17 06:00 Alkaline Phosphatase 86 U/L (38-126) 10/17/17 06:00 Lactate Dehydrogenase 659 U/L (333-699) 10/09/17 02:37 Total Creatine Kinase 86 U/L (35-230) 10/09/17 02:37 Troponin I < 0.01 ng/mL D 10/09/17 02:37 Total Protein 7.8 g/dL (5.8-8.3) 10/17/17 06:00 Albumin 3.7 g/dL (3.0-4.8) 10/17/17 06:00 Globulin 4.1 gm/dL 10/17/17 06:00 Albumin/Globulin Ratio 0.9 (1.1-1.8) L 10/17/17 06:00 Triglycerides 192 mg/dL (35-160) H 10/09/17 07:00 Cholesterol 174 mg/dL (130-200) 10/09/17 07:00 LDL Cholesterol Direct 113 mg/dL (0-129) 10/09/17 07:00 HDL Cholesterol 37 mg/dL (29-60) 10/09/17 07:00 Amylase 54 U/L (35-125) 10/16/17 06:15 Lipase 166 U/L (23-300) 10/16/17 06:15 Vitamin B12 432 pg/mL (239-931) 10/10/17 08:10 25-OH Vitamin D Total 31.6 NG/ML (30.0-100.0) 10/16/17 06:15 Folate 18.0 ng/mL 10/10/17 08:10 Procalcitonin 1.05 NG/ML (0.19-0.49) H 10/14/17 10:00 Free T4 1.56 ng/dL (0.78-2.19) 10/09/17 07:00 Thyroxine (T4) 8.6 ug/dL (5.5-11.0) 10/09/17 07:00 TSH 3rd Generation 2.68 mIU/mL (0.46-4.68) 10/09/17 07:00 Urine Color Yellow (YELLOW) 10/09/17 16:39 Urine Appearance Clear (CLEAR) 10/09/17 16:39 Urine pH 5.0 (4.7-8.0) 10/09/17 16:39 Ur Specific [place] 1.020 (1.005-1.035) 10/09/17 16:39 Urine Protein 30 mg/dL (<30 mg/dL) H 10/09/17 16:39 Urine Glucose (UA) Negative mg/dL (NEGATIVE) 10/09/17 16:39 Urine Ketones Negative mg/dL (NEGATIVE) 10/09/17 16:39 Urine Blood Trace-intact (NEGATIVE) H 10/09/17 16:39 Urine Nitrate Negative (NEGATIVE) 10/09/17 16:39 Urine Bilirubin Negative (NEGATIVE) 10/09/17 16:39 Urine Urobilinogen 0.2 E.U./dL (<1 E.U./dL) 10/09/17 16:39 Ur Leukocyte Esterase Moderate [place]/uL (NEGATIVE) H 10/09/17 16:39 Urine RBC 2 - 5 /hpf (0-2) 10/09/17 16:39 Urine WBC 20 - 25 /hpf (0-6) 10/09/17 16:39 Ur Epithelial Cells 6 - 8 /hpf (0-5) 10/09/17 16:39 Urine Bacteria Many (NEG) 10/09/17 16:39 Coarse Granular Casts Trace /hpf (0-2) H 10/09/17 16:39 Hepatitis A IgM Ab Negative (NEGATIVE) 10/09/17 07:00 Hep Bs Antigen Negative (NEGATIVE) 10/09/17 07:00 Hep B Core IgM Ab Negative (NEGATIVE) 10/09/17 07:00 Hepatitis C Antibody Reactive (NEGATIVE) 10/09/17 07:00 Hepatitis C RNA <15 not detected IU/mL (<15) 10/10/17 06:00 HCV RNA Qual (TMA) Not detected 10/10/17 06:00 HCV RNA Quant (PCR) <1.18 not detected Log IU/mL (<1.18) 10/10/17 06:00 HCV RNA (PCR) IUs/ml <15 not detected IU/mL (<15) 10/10/17 06:00 HCV RNA PCR log IUs/ml <1.18 not detected Log IU/mL (<1.18) 10/10/17 06:00 HIV 1&2 Ag/Ab, 4th Gen Nonreactive (Nonreactive) 10/10/17 06:00 Blood Type A POSITIVE 10/14/17 10:18 Blood Type Confirm A POSITIVE 10/14/17 10:45 Antibody Screen Negative 10/14/17 10:18 Crossmatch See Detail 10/14/17 10:18 BBK History Checked No verified bt 10/14/17 10:18 - Hospital Course Hospital Course: Ms Smith, 72 y/o [place] F, with CAD s/p PCI/stent, HTN, HLD, and DM2 who presents with severe abdominal pain and n/v x1 day. CT A/P showed acute pancreatitis with mild promience CBD/prox pancreatic duct. Pt was found likely to have acute gallstone pancreatitis. cholilithiasis may have spontanously passed and pt's cholestatic lab was trending better. MRCP confirmed that pt has no CBD stone. Pt underwent laparoscopic cholecystectomy on 10/12. Post op noted to have LIANNA and became septic possibly from pneumonia. Nair was placed as pt was retaining urine on bladder scan. Creatinine trend reveals that pt may have some baseline ckd around stage 2 ( b/l cr around 1.5). She was found to have hepatitis C likely chronic not-active. Pt had BP 200 on several occasion during this hospital stay. Work up on secondary HTN is on going. Pt is medically stable and vital sign stable at discharge. Son refuses TCU for multiple times and pt will be discharged home with home PT, VNA. Surgery will remove LISA drain and wound care instructions at discharge. Sepsis from post-procedure, s/p lap geneva, Pneumonia with acute pancreatitis - improved Systemic Inflammatory response syndrome probably from acute pancreatitis R/O cholecystitis Acute gallstone pancreatitis s/p ABX: Aztreonam & Flagyl . Now swtich to Levaquin PO x 5d LIANNA on CKD 2 - could be post renal (urine retention) vs prerenal (Prior NPO) - resolved - HIDA negative has ruled out bile leak Hepatitis C Transaminitis - improving - Hep panel: +Hep C Ab - f/u genotype - HCV quant and viral load - not detected - Hold Lipitor, Fenofibrate during hospital stay and resume at discharge. CPK normal. Anemia, acute on chronic, s/p 2p RBC - H/H stable at discharge - B12: 432; Folate: 18; Iron: 55; Ferritin: 158; TIBC: 357; % Saturation: 15; Retic count: 2.37 Hx CAD - continue ASA 81, lipitor - Lipid panel: Trig 192, Chol 174, LDL 113, HDL 37 Hx DM2, A1C 6.7 - stable HTN urgency - work up on secondary HTN on going Hx HTN, HLD - amlodipine 5 daily, Toprol Xl 200 AM, Valsartan 320 HS Pulmonary nodules - follow up CT in 12 months Depression - Zoloft 100mg PO QD Osteoporosis - Fosamax 70 mg PO Q7D Gout - Allopurinol 100 bid Constipation - colace 100 bid Hypovit D - Drisdol Discharge planning - Son refused TCU/[facility]ELIA on several occasions. Family states that they will contact physical therapist for home PT themselves ([place] [phone]) and they will f/u PCP Dr Roberto Montes ([phone]) within 1 week s/p discharge - Pulmonary nodules; follow up CT in 12 months - Follow up with ObGyn within 1 week for IUD - DISCHARGE HOME ONLY AFTER CLEARED BY SURGERY AND AFTER LISA DRAIN REMOVED - FOLLOW UP WITHIN 1 WEEK - FOLLOW UP WITHIN 1 WEEK - follow up with Dr Worrell for hepatitis c management outpatient - follow up with Dr. Dumont for Hypertension management - REFER TO [facility] PT UPON DISCHARGE S/R/D/w Dr. Cutler Discharge Exam - Head Exam Head Exam: ATRAUMATIC, NORMAL INSPECTION, NORMOCEPHALIC - Eye Exam Eye Exam: EOMI, Normal appearance, PERRL Pupil Exam: NORMAL ACCOMODATION, PERRL - ENT Exam ENT Exam: Mucous Membranes Moist - Neck Exam Additional comments: supple - Respiratory Exam Respiratory Exam: NORMAL BREATHING PATTERN, UNREMARKABLE - Cardiovascular Exam Cardiovascular Exam: REGULAR RHYTHM, +S1, +S2 - GI/Abdominal Exam GI & Abdominal Exam: Normal Bowel Sounds, Soft, Tenderness (RUQ, post surgery). absent: Distended, Firm, Guarding - Rectal Exam Rectal Exam: NORMAL INSPECTION - Extremities Exam Extremities exam: normal capillary refill, pedal pulses present - Back Exam Back exam: absent: CVA tenderness (L), CVA tenderness (R) - Neurological Exam Neurological exam: Alert, Oriented x3 - Psychiatric Exam Psychiatric exam: Normal Affect, Normal Mood - Skin Skin Exam: Dry, Normal Color, Warm Discharge Plan - Discharge Medications Prescriptions: amLODIPine [Norvasc] 5 mg PO DAILY #30 tab DiphenhydrAMINE [Benadryl] 25 mg PO HS PRN #30 cap PRN Reason: Insomnia Docusate [Colace] 100 mg PO BID #60 cap Ergocalciferol [Drisdol 50,000 Intl Units Cap] 1 cap PO Q7D #10 cap levoFLOXacin [Levaquin] 500 mg PO DAILY #7 tab Pantoprazole [Protonix EC Tab] 20 mg PO 0600 #30 ect traMADol [Ultram] 50 mg PO TID PRN #9 tab PRN Reason: Pain, Moderate (4-7) - Follow Up Plan Condition: STABLE Disposition: HOME/ ROUTINE Instructions: Chest Pain (DC), Cholecystitis (DC), Pancreatitis (DC), Gallstones (DC), Pneumococcal Vaccine for Adults (DC), Laparoscopic Cholecystectomy (DC), Influenza Vaccine (DC), Acute Nausea and Vomiting (DC) Additional Instructions: DISCHARGE HOME ONLY AFTER CLEARED BY SURGERY AND AFTER LISA DRAIN REMOVED FOLLOW UP , Primary care, WITHIN 1 WEEK FOLLOW UP , Surgeon - can remove dressing tomorrow - free to shower - no heavy lifting greater than 15lbs for 4-6 weeks - follow up with Dr. He in office in 1-[address] Dumont, manager banking for persistent hypertension management in 1-2 weeks follow up with Dr Worrell manager banking in 1-2 weeks for hepatitis c DISCHARGE MEDS PER UPDATED AMBULATORY ORDERS PLUS NEW SCRIPTS COPY OF DIET TO PATIENT UPON DISCHARGE. REFER TO [facility] PT UPON DISCHARGE Follow up with ObGyn within 1 week for IUD follow up imaging in 12 months for pulmonary nodules. Referrals: Dave He MD [Staff Provider] - 1 Week (DISCHARGE HOME ONLY AFTER CLEARED BY SURGERY AND AFTER LISA DRAIN REMOVED FOLLOW UP WITHIN 1 WEEK FOLLOW UP WITHIN 1 WEEK DISCHARGE MEDS PER UPDATED AMBULATORY ORDERS PLUS NEW SCRIPTS COPY OF DIET TO PATIENT UPON DISCHARGE. REFER TO [facility] PT UPON DISCHARGE Follow up with ObGyn within 1 week for IUD ) Cecil Cutler MD [Staff Provider] - 1 Week (DISCHARGE HOME ONLY AFTER CLEARED BY SURGERY AND AFTER LISA DRAIN REMOVED FOLLOW UP WITHIN 1 WEEK FOLLOW UP WITHIN 1 WEEK DISCHARGE MEDS PER UPDATED AMBULATORY ORDERS PLUS NEW SCRIPTS COPY OF DIET TO PATIENT UPON DISCHARGE. REFER TO [facility] PT UPON DISCHARGE Follow up with ObGyn within 1 week for IUD ) Paul Dumont MD [Staff Provider] - Gary Worrell MD [Staff Provider] -
--- NOTE | 2017-10-17 11:59 | CP.PCM.PCO ---
Physician Communication Note - Physician Communication Note Physician Communication Note: OK D/C home-office 1 week
--- NOTE | 2017-10-17 12:05 | CP.PCM.PN ---
Subjective - Date & Time of Evaluation Date of Evaluation: 10/17/17 Time of Evaluation: 09:30 - Subjective Subjective: General Surgery- Dr. He Patients seen and examined at bedside this AM. no acute events overnight. BP improving at this time. tolerating diet. Denies Nausea, vomiting, diarrhea, chest pain, shortness of breath, headaches Neo: 30 cc serosang Objective - Vital Signs/Intake and Output Vital Signs (last 24 hours): Temp Pulse Resp BP Pulse Ox 98.2 F 70 19 131/65 94 L 10/17/17 07:30 10/17/17 09:21 10/17/17 07:30 10/17/17 09:21 10/17/17 07:30 Intake and Output: 10/17/17 10/17/17 06:59 18:59 Intake Total 240 Output Total 70 Balance -70 240 - Medications Medications: Current Medications Acetaminophen (Tylenol 650 Mg Supp) 650 mg RC Q6H PRN PRN Reason: TEMP>=99.5F Last Admin: 10/14/17 01:32 Dose: 650 mg Acetaminophen (Tylenol 325mg Tab) 650 mg PO Q4 PRN PRN Reason: TEMP>=99.5F Last Admin: 10/15/17 05:14 Dose: 650 mg Alendronate Sodium (Fosamax) 70 mg PO Q7D [facility] Last Admin: 10/10/17 06:52 Dose: 70 mg Allopurinol (Zyloprim) 100 mg PO BID [facility] Last Admin: 10/17/17 09:21 Dose: 100 mg Amlodipine Besylate (Norvasc) 5 mg PO DAILY [facility] Last Admin: 10/17/17 09:21 Dose: 5 mg Aspirin (Aspirin Chewable) 81 mg PO DAILY [facility] Last Admin: 10/17/17 09:20 Dose: 81 mg Clonidine HCl (Catapres-Tts2 0.2 Mg/24 Hr) 1 patch TD Q7D@1000 [facility] Last Admin: 10/14/17 17:05 Dose: 1 patch Diphenhydramine HCl (Benadryl) 25 mg PO HS PRN PRN Reason: Insomnia Last Admin: 10/10/17 23:15 Dose: 25 mg Docusate Sodium (Colace) 100 mg PO BID [facility] Last Admin: 10/17/17 09:20 Dose: 100 mg Ergocalciferol (Drisdol 50,000 Intl Units Cap) 1 cap PO Q7D [facility] Last Admin: 10/16/17 22:37 Dose: 1 cap Heparin Sodium (Porcine) (Heparin) 5,000 units SC Q8 [facility] PRN Reason: Protocol Last Admin: 10/17/17 05:23 Dose: 5,000 units Hydralazine HCl (Apresoline) 10 mg IVP Q6 PRN PRN Reason: FORSBP>=170&/ORDBP>=100MMHG Last Admin: 10/17/17 06:44 Dose: 10 mg Hydromorphone HCl (Dilaudid) 0.5 mg IVP Q4H PRN PRN Reason: Pain, moderate (4-7) Last Admin: 10/13/17 06:14 Dose: 0.5 mg Insulin Human Lispro (Humalog Med) 0 units SC ACHS [facility] PRN Reason: Protocol Last Admin: 10/17/17 08:27 Dose: Not Given Levofloxacin (Levaquin) 500 mg PO DAILY [facility] PRN Reason: Protocol Stop: 10/20/17 10:01 Last Admin: 10/17/17 09:20 Dose: 500 mg Magnesium Oxide (Mag-Ox) 400 mg PO BID [facility] Last Admin: 10/17/17 09:20 Dose: 400 mg Metoprolol Succinate (Toprol Xl) 200 mg PO BRK [facility] Last Admin: 10/17/17 08:28 Dose: 200 mg Ondansetron HCl (Zofran Inj) 4 mg IVP Q4H PRN PRN Reason: Nausea/Vomiting Last Admin: 10/11/17 22:04 Dose: 4 mg Pantoprazole Sodium (Protonix Ec Tab) 20 mg PO 0600 [facility] Last Admin: 10/17/17 05:23 Dose: 20 mg Sertraline HCl (Zoloft) 100 mg PO DAILY [facility] Last Admin: 10/17/17 09:20 Dose: 100 mg Tramadol HCl (Ultram) 50 mg PO TID PRN PRN Reason: Pain, moderate (4-7) Valsartan (Diovan) 320 mg PO QPM [facility] Last Admin: 10/16/17 18:30 Dose: 320 mg - Labs Labs: 10/17/17 06:00 10/17/17 06:00 PT 12.9 SECONDS (9.4-12.5) H 10/12/17 06:20 INR 1.17 (0.93-1.08) H 10/12/17 06:20 APTT 29.1 Seconds (25.1-36.5) 10/12/17 06:20 - Constitutional Appears: Non-toxic, No Acute Distress - Eye Exam Eye Exam: EOMI. absent: Scleral icterus - Respiratory Exam Respiratory Exam: NORMAL BREATHING PATTERN. absent: Accessory Muscle Use, Respiratory Distress - Cardiovascular Exam Cardiovascular Exam: +S1, +S2. absent: Bradycardia, Tachycardia - GI/Abdominal Exam GI & Abdominal Exam: Soft. absent: Distended, Firm, Guarding, Rigid, Tenderness , Rebound - Back Exam Back Exam: absent: CVA tenderness (L), CVA tenderness (R) - Neurological Exam Neurological Exam: Alert, Awake, Oriented x3 - Psychiatric Exam Psychiatric exam: Normal Affect - Skin Skin Exam: Intact, Warm Assessment and Plan - Assessment and Plan (Free Text) Assessment: 72F s/p laparoscopic cholecystectomy POD#5 Plan: - cleared for discharge from surgical standpoint - can remove dressing tomorrow - free to shower - no heavy lifting greater than 15lbs for 4-6 weeks - follow up with Dr. He in office in 1-2 weeks - discussed w/ Dr. He surgical attending Sameer Cota PGY1
--- NOTE | 2017-10-17 13:14 | PN ---
DATE: 10/17/2017 SUBJECTIVE: The patient is lying in bed, comfortable. She denies any abdominal pain, nausea or vomiting. She is tolerating solid foods. CURRENT MEDICATIONS: Include Apresoline, baby aspirin, Benadryl, clonidine, docusate sodium, hydromorphone as needed, valsartan, ergocalciferol, Fosamax, heparin 5000 units subcutaneous every 8 hours, Humulin insulin, Levaquin 500 mg daily, mag oxide, Norvasc 5 mg daily, pantoprazole 20 mg each a.m., metoprolol succinate 200 mg at breakfast, acetaminophen 650 mg q. 4 h. as needed for pain, tramadol 50 mg t.i.d. as needed for pain, Zofran 4 mg IV as needed, Zoloft 100 mg daily, and allopurinol 100 mg p.o. b.i.d. PHYSICAL EXAMINATION VITAL SIGNS: Reveal temperature of 98.2, blood pressure of 131/65, and heart rate is 70. HEENT: Reveal sclerae to be white. Conjunctivae pink. NECK: Supple. CHEST: Lungs are clear. HEART: Reveals regular rate and rhythm. ABDOMEN: Soft and nontender. No mass. She has a Neo drain in the right lower quadrant, draining serous fluid. EXTREMITIES: Show no edema. LABORATORY DATA: Reveal white blood cell count 9.9, hemoglobin 11.9. Chemistries reveal normal electrolytes, AST 47, ALT 34. Hepatobiliary scan reveals a small collection of nuclear material in the gallbladder fossa. IMPRESSION: 1. Gallstone pancreatitis, status post laparoscopic cholecystectomy. 2. Postop fever. 3. Small biloma found on hepatobiliary scan as well as postop CT. I do not believe that this is a significant bile leak. The patient appears well and is not complaining of any abdominal pain or any further fevers or nausea or vomiting. RECOMMENDATIONS: The patient is stable from a GI standpoint. If the patient has any recurrence of pain, she may need a followup CT scan in 3 to 4 weeks to check on whether there is a progression of biloma. Gary Worrell MD
--- NOTE | 2017-10-17 16:18 | CP.PCM.PN ---
Subjective - Date & Time of Evaluation Date of Evaluation: 10/17/17 Time of Evaluation: 23:00 - Subjective Subjective: Follow up Nephrology Consultation Note Assessment: Stable Acute Kidney Injury (N17.9) likely hemodynamic due to acute illness: improved Diabetic chronic Kidney Disease (E11.22) Hypertensive Chronic Kidney Disease (I12.9) Chronic Kidney Disease (N18.3) Stage 3 (baseline cr 1.1) Anemia HTN (I12.9) Hypocalcemia gallstone pencreatitis s/p lap geneva urine retention s/p nichols Plan No acute need for renal replacement therapy at this time. renal function improved Hypertension control with meds as ordered. resume her valsartan 320 mg. added norvasc 5 mg/day. sec htn w/up with renin, aldosterone, metanephrine pending and renal artery doppler (neg) Monitor Input/Output, daily weights and renal function with basic metabolic panel Check urine spot protein/creatinine and albumin/creatinine ratio, Check for 25-OH vitamin D (level as 31), iPTH pending Dose meds/antibiotics for improved GFR. Avoid fleets enema/magnesium based laxatives. Avoid nephrotoxins/NSAIDs/IV iodinated contrast (unless needed emergently) Glycemic control Further work up for as per primary team Thanks for allowing me to participate in care of your patient. Please call if any Qs. pt stable for d/c from renal perspective. asked son to have pt come for f/up with me in 1 week with all home meds and BP readings Dr Paul Dumont Office: [phone] Subjective: Noted events overnight. Patients feels okay. Denies chest pain, palpitation, shortness of breath, leg swelling. No new complaints family bedside and helped in yoruba interpretation Physical Examination: General Appearance: Comfortable, in no acute respiratory distress, co-operative . Vitals reviewed and noted as below Head; Atraumatic, normocephalic ENT: no ulcers no thrush. Tongue is midline. Oropharynx: no rash or ulcers. EYES: Pupils are equal, round and reactive to light accommodation. Eye muscles and extraocular movement intact. Sclera is anicteric. Neck; supple no lymphadenopathy, no thyromegaly or bruit Lungs: Normal respiratory rate/effort. Breath sounds bilateral equal and clear Heart: Normal rate. s1s2 normal. No rub or gallop. Extremities: no edema. No varicose veins Neurological: Patient is alert, awake and oriented to person, place and time. No focal deficit. Strength bilateral appropriate and equal Skin: Warm and dry. Normal turgor. No rash. Palpitation: Normal elasticity for age Abdomen: Abdomen is soft. Bowel sounds +. There is no abdominal tenderness, no guarding/rigidity no organomegaly. RUQ LISA drain+ Psych: normal insight and normal affect/mood MSK: no joint tenderness or swelling. Digits and nails normal, no deformity : kidney or bladder not palpable. Labs/imaging reviewed. Past medical history, past surgical history, family history, social history, allergy reviewed and noted as below Family hx: no hx of CKD. Rest non-contributory CT abdom: renal unremarkable UA trace protein Objective - Vital Signs/Intake and Output Vital Signs (last 24 hours): Temp Pulse Resp BP Pulse Ox 98.2 F 70 19 131/65 94 L 10/17/17 07:30 10/17/17 09:21 10/17/17 07:30 10/17/17 09:21 10/17/17 07:30 Intake and Output: 10/17/17 10/17/17 06:59 18:59 Intake Total 240 Output Total 70 Balance -70 240 - Labs Labs: 10/17/17 06:00 10/17/17 06:00 PT 12.9 SECONDS (9.4-12.5) H 10/12/17 06:20 INR 1.17 (0.93-1.08) H 10/12/17 06:20 APTT 29.1 Seconds (25.1-36.5) 10/12/17 06:20
--- NOTE | 2017-10-17 16:27 | PN ---
DATE: 10/17/2017 SUBJECTIVE: The patient is in bed, in no acute distress, nontoxic. PHYSICAL EXAMINATION: VITAL SIGNS: Temperature is 98, blood pressure is 170/70, respiratory rate of 16. HEENT: Unremarkable. NECK: Supple. LUNGS: Decreased breath sounds. HEART: Normal S1 and S2. ABDOMEN: Soft, nontender. LABORATORY DATA: Reveals a white count of 9.9 and a hemoglobin of 11. BUN of 20, creatinine of 1.0. Urinalysis is noted and microbiology is noted. The patient has now been afebrile. Dr. Cota's progress note from today is reviewed. Dr. Hull's communication report is reviewed. ASSESSMENT AND PLAN: This is a 72-year-old [place] female with sepsis with postprocedure fever and status post cholecystectomy with postprocedure healthcare-associated pneumonia, acute pancreatitis, doing well now, short course of Levaquin to complete therapy. Vick Sinclair MD
== END 2017-10-17 13:08 | disposition home or self-care (01) | DRG 417 ==
LOC: ED 01:26 → ERH 05:03 → CCU 06:10 → 3RSO 10-10 18:05 → 5RNO 10-15 17:20
PROVIDERS: ADMIT Internal Medicine; ATTEND Internal Medicine
PROC: 0FT44ZZ Resection of Gallbladder, Percutaneous Endoscopic Approach (ICD-10-PCS; principal; 2017-10-12 10:30)
DX: K80.10 Calculus of gallbladder with chronic cholecystitis without obstruction (principal); K85.10 Biliary acute pancreatitis without necrosis or infection; A41.9 Sepsis, unspecified organism; N17.9 Acute kidney failure, unspecified; J18.9 Pneumonia, unspecified organism; K83.0 Cholangitis; N18.3 Chronic kidney disease, stage 3 (moderate); E22.1 Hyperprolactinemia; I13.0 Hypertensive heart and chronic kidney disease with heart failure and stage 1 through stage 4 chronic kidney disease, or unspecified chronic kidney disease; I50.32 Chronic diastolic (congestive) heart failure; J98.11 Atelectasis; K91.89 Other postprocedural complications and disorders of digestive system; N39.0 Urinary tract infection, site not specified; E11.22 Type 2 diabetes mellitus with diabetic chronic kidney disease; E11.65 Type 2 diabetes mellitus with hyperglycemia; I07.1 Rheumatic tricuspid insufficiency; D64.9 Anemia, unspecified; B19.20 Unspecified viral hepatitis C without hepatic coma; E03.9 Hypothyroidism, unspecified; E55.9 Vitamin D deficiency, unspecified; E66.01 Morbid (severe) obesity due to excess calories; Z68.35 Body mass index [BMI] 35.0-35.9, adult; E78.00 Pure hypercholesterolemia, unspecified; E78.1 Pure hyperglyceridemia; E78.5 Hyperlipidemia, unspecified; E83.42 Hypomagnesemia; E83.51 Hypocalcemia; G47.00 Insomnia, unspecified; I15.9 Secondary hypertension, unspecified; I25.118 Atherosclerotic heart disease of native coronary artery with other forms of angina pectoris; I25.2 Old myocardial infarction; I27.20 Pulmonary hypertension, unspecified; I44.0 Atrioventricular block, first degree; K21.9 Gastro-esophageal reflux disease without esophagitis; K22.9 Disease of esophagus, unspecified; K44.9 Diaphragmatic hernia without obstruction or gangrene; K42.9 Umbilical hernia without obstruction or gangrene; K59.00 Constipation, unspecified; K76.0 Fatty (change of) liver, not elsewhere classified; M10.9 Gout, unspecified; M47.9 Spondylosis, unspecified; M81.0 Age-related osteoporosis without current pathological fracture; R31.29 Other microscopic hematuria; R50.82 Postprocedural fever; Y83.6 Removal of other organ (partial) (total) as the cause of abnormal reaction of the patient, or of later complication, without mention of misadventure at the time of the procedure; Y95 Nosocomial condition; Z79.82 Long term (current) use of aspirin; Z79.83 Long term (current) use of bisphosphonates; Z79.899 Other long term (current) drug therapy; Z82.49 Family history of ischemic heart disease and other diseases of the circulatory system; Z86.79 Personal history of other diseases of the circulatory system; Z88.0 Allergy status to penicillin; Z95.5 Presence of coronary angioplasty implant and graft; Z97.5 Presence of (intrauterine) contraceptive device; R33.9 Retention of urine, unspecified